=== PATIENT | male | born 1945 | race Caucasian/White ===

== ENCOUNTER 2022-05-13 11:33 | Observation (INO) | payer OTHER ==
[2022-05-13] MEDS ORDERED: FLUCONAZOLE 100 MG TAB ONE (12:19)
[2022-05-13] MEDS ORDERED: NA CHLORIDE 0.9% 500 ML ONE (12:19)
[2022-05-13 12:36] LABS: Hematocrit 43.4 % (39.6-49.0); Lymphocytes % 7.2 % (15.3-44.8); MCV 91.1 fL (80-100); MPV 8.3 fL (7.6-11.3); RBC Red Blood Cell Count 4.76 M/uL (4.33-5.43)
[2022-05-13 13:20] LABS: Urine Blood Negative (Negative); Urine Glucose Negative (Negative); Urine Protein Negative (Negative); Urine Specific Gravity >=1.030 (1.005-1.030); Urine pH 5.5 (5.0-7.0)
--- NOTE | 2022-05-13 13:55 | RAD REPORT ---
EXAM DESCRIPTION: CT - Abdomen Pelvis W Contrast - 05/13/2022 1:43 pm CLINICAL HISTORY: Abdominal pain COMPARISON: 2018 and 1999 TECHNIQUE: Computed axial tomography of the abdomen pelvis was obtained. 100 cc Isovue-300 was admin istered intravenously. Oral contrast was not requested which limits evaluation of bowel and appendix All CT scans are performed using dose optimization technique as appropriate and may include automated exposure control or mA/KV adjustment according to patient size. FINDINGS: The liver, spleen, pancreas, right adrenal and kidneys appear unremarkable. Enlargement of the left adrenal gland without significant change likely benign There is no evidence of diverticulitis. Sigmoidectomy. No obstruction. No ascites Cholecystectomy IMPRESSION: No acute abnormality is displayed.
[2022-05-13 14:06] LABS: Urine Bacteria None Seen /HPF (<20); Urine Mucus 1+ /HPF (None Seen); Urine RBC <5 /HPF (None Seen)
--- NOTE | 2022-05-13 14:16 | ER ---
Nurse's Notes [facility] Name: Jose Elias Lunsford Age: 76 yrs Sex: Male : 1945 Arrival Date: 05/13/2022 Time: 11:38 Bed 25 Private MD: Diagnosis: Muscle weakness (generalized);Dehydration;Cellulitis of groin;Cellulitis of abdominal wall Presentation: 05/13 11:38 Chief complaint: Patient states: Rash to belly area for 1 week. Diarrhea/IBS problems ll1 for a couple days. Found on floor this morning covered in stool all over, but refused to come at that time. Home health sent him for eval. Coronavirus screen: Client denies travel out of the [place] in the last 14 days. Ebola Screen: Patient denies travel to an Ebola-affected area in the 21 days before illness onset. Initial Sepsis Screen: Does the patient meet any 2 criteria? HR > 90 bpm. No. Patient's initial sepsis screen is negative. Does the patient have a suspected source of infection? Yes: Acute abdominal pain. Risk Assessment: Do you want to hurt yourself or someone else? Patient reports no desire to harm self or others. Onset of symptoms was May 06, 2022. 11:38 Method Of Arrival: EMS ll1 11:38 Acuity: SHANA 3 ll1 Triage Assessment: 11:43 General: Appears ill, Behavior is cooperative, appropriate for age. Pain: Complains of ll1 pain in abdomen Quality of pain is described as crampy. GI: Reports cramping, diarrhea. Derm: Rash noted that is to folds of lower abdomen area. Historical: - Allergies: 11:42 No Known Allergies; ll1 - PMHx: 11:42 IBS; colon CA with chemo; ll1 - PSHx: 11:42 colon resection; ll1 - Immunization history:: Client reports receiving the 2nd dose of the Covid vaccine. - Social history:: Smoking status: Patient denies any tobacco usage or history of. - Family history:: not pertinent. - Hospitalizations: : No recent hospitalization is reported. Screenin:59 Abuse screen: Denies threats or abuse. Nutritional screening: No deficits noted. ll1 Tuberculosis screening: No symptoms or risk factors identified. Fall Risk IV access (20 points). Gait- Weak (10 pts.). Total Brunson Fall Scale indicates Low Risk Score (25-44 pts). Fall prevention measures have been instituted. Side Rails Up X 2 Placed close to Nursing Station Frequent Obs/Assesments occuring Family Present and informed to notify staff if they need to leave bedside As available Patient and Family Educated on Fall Prevention Program and strategies. Assessment: 12:00 General: Appears in no apparent distress. comfortable, Behavior is calm, cooperative, kr3 Smells of malodorous . 12:45 Reassessment: No changes from previously documented assessment. Patient and/or family kr3 updated on plan of care and expected duration. Pain level reassessed. 13:45 Reassessment: No changes from previously documented assessment. Patient and/or family kr3 updated on plan of care and expected duration. Pain level reassessed. 14:45 Reassessment: No changes from previously documented assessment. Patient and/or family kr3 updated on plan of care and expected duration. Pain level reassessed. 15:45 Reassessment: No changes from previously documented assessment. Patient and/or family kr3 updated on plan of care and expected duration. Pain level reassessed. Vital Signs: 11:38 BP 113 / 69; Pulse 92; Resp 18; Temp 97.6; Pulse Ox 98% on R/A; Weight 154.22 kg; ll1 Height 6 ft. 0 in. (182.88 cm); 12:26 BP 123 / 64; Pulse 90; Resp 18; Pulse Ox 95% on R/A; kr3 11:38 Body Mass Index 46.11 (154.22 kg, 182.88 cm) ll1 ED Course: 11:35 Arm band placed on Patient placed in an exam room, on a stretcher. kr3 11:35 Bed in low position. Call light in reach. Side rails up X 1. kr3 11:38 Patient arrived in ED. ll1 11:39 Jayden Perez MD is Attending Physician. rn 11:42 Triage completed. ll1 12:07 Lizzy Narvaez, ESTEBAN is Primary Nurse. kr3 12:24 Inserted saline lock: 20 gauge in right upper arm, using aseptic technique. kr3 13:28 Lizzy Narvaez, RN is Primary Nurse. kr3 13:45 CT Abd/Pelvis - IV Contrast Only In Process Unspecified. EDMS 14:15 Johnny Sunshine MD is Hospitalizing Provider. rn 18:00 No provider procedures requiring assistance completed. Patient admitted, IV remains in ll1 place. Administered Medications: 12:23 Drug: NS 0.9% 500 ml Route: IV; Rate: bolus; Site: right upper arm; kr3 14:26 Follow up: Response: No adverse reaction; IV Status: Completed infusion; IV Intake: kr3 500ml 12:25 Drug: DiFLUcan (fluconazole) 200 mg Route: PO; kr3 15:46 Follow up: Response: No adverse reaction kr3 14:24 Drug: Clindamycin 600 mg Route: IVPB; Infused Over: 30 mins; Site: right upper arm; kr3 15:46 Follow up: Response: No adverse reaction; IV Status: Completed infusion; IV Intake: [id number] Medication: 18:00 VIS not applicable for this client. ll1 Intake: 14:26 IV: 500ml; Total: 500ml. kr3 15:46 IV: 50ml; Total: 550ml. kr3 Outcome: 14:16 Decision to Hospitalize by Provider. rn 18:00 Admitted to ER Hold. Please see [facility] for further documentation. ll1 18:00 Condition: stable 18:00 Instructed on the need for admit. 05/14 12:48 Patient left the ED. jl7 Signatures: Dispatcher [employer] EDMS Jayden Perez MD MD rn Leal, Jahala RN RN jl7 Salma Jacobs RN RN ll1 Lizzy Narvaez RN RN kr3 Corrections: (The following items were deleted from the chart) 05/13 12:25 11:43 Arm band placed on Patient placed in an exam room, on a stretcher, ll1 kr3 15:44 15:42 General: Appears in no apparent distress. comfortable, Behavior is calm, kr3 cooperative, Smells of malodorous . kr3
--- NOTE | 2022-05-13 14:17 | EDPHYS ---
Physician Documentation [facility] Name: Jose Elias Lunsford Age: 76 yrs Sex: Male : 1945 Arrival Date: 05/13/2022 Time: 11:38 Bed 25 Private MD: ED Physician Jayden Perez HPI: 05/13 13:41 This 76 yrs old Unknown Male presents to ER via EMS with complaints of Rash, Diarrhea, rn weakness. 13:42 Pt reports generalized weakness, some diarrhea, was found laying on floor covered in rn feces today. No fever. No vomiting. No chest pain/sob.. Onset: The symptoms/episode began/occurred today. Severity of symptoms: At their worst the symptoms were moderate in the emergency department the symptoms are unchanged. The patient has not experienced similar symptoms in the past. The patient has not recently seen a physician. Historical: - Allergies: 11:42 No Known Allergies; ll1 - PMHx: 11:42 IBS; colon CA with chemo; ll1 - PSHx: 11:42 colon resection; ll1 - Immunization history:: Client reports receiving the 2nd dose of the Covid vaccine. - Social history:: Smoking status: Patient denies any tobacco usage or history of. - Family history:: not pertinent. - Hospitalizations: : No recent hospitalization is reported. ROS: 13:42 Constitutional: Negative for fever, chills, and weight loss, Eyes: Negative for injury, rn pain, redness, and discharge, Neck: Negative for injury, pain, and swelling, Cardiovascular: Negative for chest pain, palpitations, and edema, Respiratory: Negative for shortness of breath, cough, wheezing, and pleuritic chest pain, Abdomen/GI: Negative for nausea, vomiting, and constipation, Back: Negative for injury and pain, MS/Extremity: Negative for injury and deformity, Skin: Negative for injury, rash, and discoloration, Neuro: Negative for headache, numbness, tingling, and seizure. Exam: 13:42 Constitutional: Overweight male, no acute distress Head/Face: Normocephalic, rn atraumatic. ENT: dry MM Cardiovascular: Regular rate and rhythm. No pulse deficits. Respiratory: No increased work of breathing, no retractions or nasal flaring. Abdomen/GI: soft, non-tender Skin: Warm, dry , + erythematous rash with satellite lesions under pannus and in groin. MS/ Extremity: Pulses equal, no cyanosis. Neuro: Awake and alert, GCS 15, oriented to person, place, time, and situation. 14:41 ECG was reviewed by the Attending Physician. rn Vital Signs: 11:38 BP 113 / 69; Pulse 92; Resp 18; Temp 97.6; Pulse Ox 98% on R/A; Weight 154.22 kg; ll1 Height 6 ft. 0 in. (182.88 cm); 12:26 BP 123 / 64; Pulse 90; Resp 18; Pulse Ox 95% on R/A; kr3 11:38 Body Mass Index 46.11 (154.22 kg, 182.88 cm) ll1 MDM: 11:39 Patient medically screened. rn 14:11 Differential Diagnosis rash, diarrhea, weakness, dehydration. Data reviewed: vital rn signs, nurses notes, lab test result(s), EKG, radiologic studies, CT scan, and as a result, I will admit patient. Counseling: I had a detailed discussion with the patient and/or guardian regarding: the historical points, exam findings, and any diagnostic results supporting the discharge/admit diagnosis, lab results, radiology results, the need for further work-up and treatment in the hospital. Response to treatment: the patient's symptoms have mildly improved after treatment, and as a result, I will admit patient. Admission orders: after a detailed discussion of the patient's condition and case, the admit orders are written by me. ED course: No acute findings on ct abdomen/pelvis, + elevated WBC, + cellulitis which may or may not be bacterial/fungal. Pt reports too weak to get out of bed, nobody at home to help him, is concerned about going home. . 05/13 11:49 Order name: CBC with Diff; Complete Time: 13: rn 05/13 11:49 Order name: Basic Metabolic Panel; Complete Time: 13: rn 05/13 11:49 Order name: Urine Microscopic Only; Complete Time: 14: rn 05/13 11:50 Order name: BNP; Complete Time: 13: rn 05/13 13:20 Order name: Urine Dipstick-Ancillary; Complete Time: 13:41 EDMS 05/13 14:21 Order name: SARS RAPID; Complete Time: 15:27 rn 05/13 17:35 Order name: C.difficile GDH Ag EDMS 05/13 17:35 Order name: CBC with Automated Diff EDMS 05/13 17:35 Order name: CBC with Automated Diff EDMS 05/13 17:35 Order name: Comprehensive Metabolic Panel EDWI 05/13 17:35 Order name: Comprehensive Metabolic Panel EDWI 05/13 17:35 Order name: Fecal Leukocyte Stain EDWI 05/13 17:35 Order name: Ova and Parasites EDWI 05/13 17:35 Order name: Stool Culture EDWI 05/13 11:49 Order name: IV Start; Complete Time: 12:59 rn 05/13 11:49 Order name: Urine Dipstick-Ancillary (obtain specimen); Complete Time: 13:14 rn 05/13 11:49 Order name: CT Abd/Pelvis - IV Contrast Only; Complete Time: 14:04 rn 05/13 11:49 Order name: Cardiac monitoring; Complete Time: 13:14 rn 05/13 11:49 Order name: O2 Sat Monitoring; Complete Time: 12:26 rn 05/13 17:35 Order name: Heart Healthy EDWI 05/14 08:40 Order name: Manual Differential EDMS EC:41 Rate is 86 beats/min. Rhythm is regular. Left axis deviation noted. QRS is positive in rn lead I and negative in lead aVF. OH interval is normal. QRS interval is normal. QT interval is prolonged at 495 msec. No Q waves. T waves are Normal. No ST changes noted. Clinical impression: NSR w/ Non-specific ST/T Changes. Interpreted by me. Reviewed by me. Administered Medications: 12:23 Drug: NS 0.9% 500 ml Route: IV; Rate: bolus; Site: right upper arm; kr3 14:26 Follow up: Response: No adverse reaction; IV Status: Completed infusion; IV Intake: kr3 500ml 12:25 Drug: DiFLUcan (fluconazole) 200 mg Route: PO; kr3 15:46 Follow up: Response: No adverse reaction kr3 14:24 Drug: Clindamycin 600 mg Route: IVPB; Infused Over: 30 mins; Site: right upper arm; kr3 15:46 Follow up: Response: No adverse reaction; IV Status: Completed infusion; IV Intake: [id number] Disposition Summary: 05/13/22 14:16 Hospitalization Ordered Hospitalization Status: Observation rn Provider: Johnny Sunshine rn Condition: Stable rn Problem: new rn Symptoms: have improved rn Bed/Room Type: Standard rn Location: [facility] ER HOLD(05/13/22 22:40) Room Assignment: ERHOLD-(05/13/22 22:40) cg Diagnosis - Muscle weakness (generalized) rn - Dehydration rn - Cellulitis of groin rn - Cellulitis of abdominal wall rn Forms: - Medication Reconciliation Form rn - SBAR form rn Signatures: Dispatcher [employer] EDMS Jayden Perez MD MD rn Garcia, Cindy RN RN Salma Mejia RN RN ll1 Lizzy Narvaez RN RN kr3 Corrections: (The following items were deleted from the chart) 22:40 14:16 Telemetry/MedSurg (observation) rn cg 22:40 14:16 rn cg
[2022-05-13] MEDS ORDERED: CLINDAMYCIN 600MG/D5W 600 MG/50 ML BAG IV ONE (14:28)
[2022-05-13 15:07] LABS: SARS-CoV-2 Antigen Rapid Res Negative (Negative)
[2022-05-13] MEDS ORDERED: LOPERAMIDE HCL 2 MG CAPSULE PO PRN (17:29)
[2022-05-13] MEDS ORDERED: ACETAMINOPHEN 500 MG TAB PO PRN (17:29)
[2022-05-13] MEDS ORDERED: MORPHINE 2 MG/ML SYR IV PRN (17:29)
[2022-05-13] MEDS ORDERED: ONDANSETRON 4 MG/2 ML VIAL IV PRN (17:29)
[2022-05-13] MEDS ORDERED: NA CHLORIDE 0.9% 1,000 ML ONE (17:57)
[2022-05-13] MEDS ORDERED: METHYLPREDNISOLONE 40 MG INJ ONE (17:57)
[2022-05-13] MEDS ORDERED: NA CHLORIDE 0.9% 1,000 ML IV SCH (18:00)
[2022-05-13] MEDS ORDERED: METHYLPREDNISOLONE 40 MG INJ IV ONE (18:00)
--- NOTE | 2022-05-13 22:23 | P.HP ---
Certification for Inpatient Patient admitted to: Observation With expected LOS: <2 Midnights Patient will require the following post-hospital care: None Practitioner: I am a practitioner with admitting privileges, knowledge of patient current condition, hospital course, and medical plan of care. Services: Services provided to patient in accordance with Admission requirements found in Title 42 Section 412.3 of the Code of Federal Regulations Patient History Date of Service: 05/13/22 Reason for admission: Generalized weakness; persistent diarrhea History of Present Illness: Patient is a 76-year-old gentleman who came to the hospital with generalized weakness and persistent diarrhea. Patient has not been feeling well so he came to the hospital for further evaluation. patient was really weak. He has living by himself. He normally takes care of his own activities of daily living. At this time, he will be admitted to the hospital for further evaluation. Patient has history of colon cancer. He has completed chemotherapy. Will go ahead and admitted for observation. Will get physical therapy evaluation. Gently hydrate. Anticipate discharge over the next 24 hours. Allergies No Known Allergies Allergy (Unverified 04/26/13 14:49) Home Medications: Hydrocodone 7.5/APAP 325 [[place] 7.5/325 mg*] 1 tab PO Q4HP PRN #40 tab 05/08/13 Enoxaparin Sodium [Lovenox 150 MG Syr*] 150 mg SQ BID #60 syr 09/05/13 Iron,Carbonyl [Feosol] 45 mg PO DAILY 09/05/13 Loperamide [Imodium*] 3 mg PO 1X PRN 09/05/13 Melatonin [Melatonin*] 3 mg PO BEDTIME 09/05/13 Multi-VIT,(RENAL) [Centrum Silver*] 1 tab PO DAILY 09/05/13 Naproxen Sodium [Aleve] 220 mg PO DAILY 09/05/13 [place]-3 Fatty Acids/Fish Oil [Fish Oil 1,000 mg Softgel] 1 each PO DAILY 09/05/13 Ondansetron HCl 4 mg PO PRN PRN 09/05/13 Sennosides/Docusate Sodium [Senna S Tablet] 1 each PO PRN PRN 09/05/13 dexAMETHasone [Decadron*] 4 mg PO BID 09/05/13 Triamterene/Hctz [Maxzide 37.5 mg-25 mg Tablet*] 1 each PO DAILY #30 tablet 09/10/13 - Past Medical/Surgical History Has patient received pneumonia vaccine in the past: Yes Diabetic: No -: Stage 2 Colon CA on chemo -: right ankle 1987 -: Bowel Resection -: Exploratory lap -: Diaz Cath insertion -: Cholecystectomy - Family History Father Family History: Reviewed- Non-Contributory - Social History Smoking Status: Never smoker Alcohol use: No CD- Drugs: No Review of Systems 10-point ROS is otherwise unremarkable Physical Examination - Vital Signs Temperature: 98 F Blood Pressure: 140/80 Pulse: 80 Respirations: 18 Pulse Ox (%): 96 - Physical Exam General: Alert, In no apparent distress, Oriented x3 HEENT: Atraumatic, PERRLA, Mucous membr. moist/pink, EOMI, Sclerae nonicteric Neck: Supple, 2+ carotid pulse no bruit, No LAD, Without JVD or thyroid abnormality Respiratory: Clear to auscultation bilaterally, Normal air movement Cardiovascular: Regular rate/rhythm, Normal S1 S2, No murmurs Gastrointestinal: Normal bowel sounds, Soft and benign, Non-distended, No tenderness Musculoskeletal: No clubbing, No swelling, No tenderness Integumentary: No rashes Neurological: Normal strength at 5/5 x4 extr, Normal tone, Sensation intact, Cranial nerves 3-12 intact Lymphatics: No axilla or inguinal lymphadenopathy - Studies Laboratory Data (last 24 hrs) 05/13/22 12:17: Sodium 140, Potassium 4.0, BUN 31 H, Creatinine 1.00, Glucose 124 H 05/13/22 12:17: WBC 14.40 H, Hgb 14.0, Hct 43.4, Plt Count 374 Assessment & Plan - Problems (Diagnosis) (1) Carcinoma of sigmoid colon Current Visit: No Status: Active (2) Diarrhea Current Visit: Yes Status: Acute (3) Generalized weakness Current Visit: Yes Status: Acute - Plan -Gently hydrate - stool studies - monitor electrolytes -physical therapy - out of bed and ambulate -monitor hemodynamics -anticipate discharge with home health Discharge Plan: Home Plan to discharge in: 24 Hours - Advance Directives Does patient have a Living Will: No Does patient have a Durable POA for Healthcare: No - Code Status/Comfort Care Code Status Assessed: Yes Code Status: Full Code Critical Care: No Time Spent Managing PTS Care (In Minutes): 45
[2022-05-13] MEDS ORDERED: HYDROCODONE/APAP 7.5/325 MG TAB PO PRN (22:27)
[2022-05-14] MEDS: METHYLPREDNISOLONE 40 MG INJ IV SCH ×2 (00:19→09:00)
[2022-05-14] MEDS ORDERED: METHYLPREDNISOLONE 40 MG INJ ONE ×2 (00:24→09:04)
[2022-05-14 03:39] VITALS: BMI 46.0
[2022-05-14 06:55] LABS: Absolute Lymphocytes (CBC) 0.9 K/uL (0.7-4.9); Hematocrit 40.8 % (39.6-49.0); Lymphocytes % 7.5 % (15.3-44.8); MCV 91.2 fL (80-100); MPV 8.7 fL (7.6-11.3); RBC Red Blood Cell Count 4.47 M/uL (4.33-5.43)
[2022-05-14 07:09] LABS: Albumin 2.3 g/dL (3.4-5.0); Bilirubin Total 0.4 mg/dL (0.2-1.0); Potassium 4.6 mmol/L (3.5-5.1); Protein, Total 6.2 g/dL (6.4-8.2)
[2022-05-14] MEDS ORDERED: dexAMETHasone 4 MG TAB PO SCH (08:00)
[2022-05-14 08:40] LABS: Blood Morphology Comment NOT SEEN (NOT SEEN); Platelet Estimate ADEQ; Platelets, Giant FEW
[2022-05-14] MEDS ORDERED: dexAMETHasone 4 MG TAB ONE (09:04)
[2022-05-14] MEDS ORDERED: NA CHLORIDE 0.9% 1,000 ML ONE (10:26)
[2022-05-14 13:08] VITALS: TEMP 97.6
[2022-05-14 13:10] VITALS: BP 123/64; O2SAT 95
--- NOTE | 2022-05-14 13:52 | EKG ---
Test Date: 2022-05-13 Test Time: 12:14:56 Harvester Operator: ELIANA MEASUREMENT RESULTS: Intervals: Rate: 86 MT: QRSD: 96 QT: 414 QTc: 495 [place]: P: MT: QRS: -33 T: 25 INTERPRETIVE STATEMENTS: Normal Sinus rhythm Left axis deviation Prolonged QT Abnormal ECG Compared to ECG 09/09/2013 11:44:43 Left-axis deviation now present Prolonged QT interval now present Ventricular premature complex(es) no longer present Left anterior fascicular block no longer present Electronically Signed On 05-14-22 13:49:46 CDT by Dinesh Humphreys
== END 2022-05-14 12:37 | disposition home or self-care (01) ==
LOC: ER 11:33 → ERHOLD 17:29
PROVIDERS: ADMIT Hospitalist; ATTEND Hospitalist
DX: R53.1 Weakness (principal); R19.7 Diarrhea, unspecified; E86.0 Dehydration; Z85.038 Personal history of other malignant neoplasm of large intestine; Z90.49 Acquired absence of other specified parts of digestive tract; Z20.822 Contact with and (suspected) exposure to COVID-19
CPT/HCPCS: 36415; 74177; 80048; 80053; 81003; 81015; 83880; 85025; 87811; 93005; 96361; 96365; 97110; 97161; 97530; 99285; G0378; J1650; J2920; J7030; J7040; J8540; Q9967

== ENCOUNTER 2022-05-17 15:09 | Inpatient (IN) | payer OTHER ==
[2022-05-17] MEDS ORDERED: ONDANSETRON 4 MG/2 ML VIAL ONE (15:26)
[2022-05-17] MEDS ORDERED: FENTANYL CITR 100 MCG/2 ML ONE ×3 (15:26→18:57)
[2022-05-17] MEDS ORDERED: NA CHLORIDE 0.9% 1,000 ML ONE ×6 (15:27→20:10)
[2022-05-17] MEDS ORDERED: PANTOPRAZOLE 40 MG INJ ONE (15:48)
[2022-05-17 16:20] LABS: Absolute Lymphocytes (CBC) 2.3 K/uL (0.7-4.9); Hematocrit 32.5 % (39.6-49.0); Lymphocytes % 11.1 % (15.3-44.8); MCV 90.7 fL (80-100); MPV 8.7 fL (7.6-11.3); RBC Red Blood Cell Count 3.58 M/uL (4.33-5.43)
[2022-05-17 16:24] LABS: Protime INR 1.2
--- NOTE | 2022-05-17 16:36 | ER ---
Nurse's Notes [facility] Name: Jose Elias Lunsford Age: 76 yrs Sex: Male : 1945 Arrival Date: 05/17/2022 Time: 15:[address] Private MD: Diagnosis: Abdominal pain, Generalized Presentation: 05/17 13:06 Chief complaint: EMS states: toned out to PT home for sharp, continuous ABD pain down tp1 the center of the ABD that started this morning, pain rated 10/10. reports BP 66/44. Coronavirus screen: Vaccine status: Patient reports receiving the 2nd dose of the covid vaccine. Ebola Screen: Patient negative for fever greater than or equal to 101.5 degrees Fahrenheit, and additional compatible Ebola Virus Disease symptoms Patient denies exposure to infectious person. Patient denies travel to an Ebola-affected area in the 21 days before illness onset. Initial Sepsis Screen: Does the patient meet any 2 criteria? RR > 20 per min. Systolic BP < 90 mmHg. HR > 90 bpm. Yes Does the patient have a suspected source of infection? No. Patient's initial sepsis screen is negative. Risk Assessment: Do you want to hurt yourself or someone else? Patient reports no desire to harm self or others. 13:06 Method Of Arrival: EMS: [facility] tp1 13:06 Onset of symptoms was May 17, 2022. tp1 15:57 Acuity: SHANA 2 iw Triage Assessment: 15:06 General: Appears distressed, uncomfortable, Behavior is cooperative, anxious, restless. tp1 Pain: Complains of pain in abdomen Pain currently is 10 out of 10 on a pain scale. Quality of pain is described as sharp, Pain began today. EENT: No signs and/or symptoms were reported regarding the EENT system. Neuro: Level of Consciousness is awake, alert, obeys commands, Oriented to person, place, time, situation. Cardiovascular: Reports diaphoresis, cold, clammy Capillary refill < 3 seconds in bilateral toes. Cardiovascular: Clubbing of nail beds is present. Respiratory: Airway is patent Respiratory effort is even, unlabored. GI: Abdomen is round non-distended, Abdomen is tender to palpation X 4 quads. ABD is soft on bilateral sides and firm from epigastric to umbilicus Reports constipation, nausea. : No signs and/or symptoms were reported regarding the genitourinary system. Derm: Skin is clammy, diaphoretic, Skin is pale, Skin temperature is cool Rash noted that is red, on right femoral area, left femoral area and suprapubic area. Musculoskeletal: Circulation, motion, and sensation intact. Musculoskeletal: Swelling present in right foot, left foot, right leg and left leg. Historical: - Allergies: 16:27 No Known Allergies; tp1 - Home Meds: 16:28 Nystatin Oral [Active]; IRON,C4 [Active]; OMEGA-2 [Active]; tp1 16:29 Prednisolone Oral [Active]; apixaban oral [Active]; Loperamide Oral [Active]; Melatonin tp1 Oral [Active]; naproxen Oral [Active]; Dexamethasone Oral [Active]; fluconazole Oral [Active]; Triamterene-Hydrochlorothiazid Oral [Active]; sennosides oral [Active]; Ondansetron Oral [Active]; - PMHx: 16:27 colon CA with chemo; ibs; tp1 - PSHx: 16:27 colon resection; tp1 - Immunization history:: Client reports receiving the 2nd dose of the Covid vaccine. - Social history:: Smoking status: Patient/guardian denies using tobacco. Screenin:09 Abuse screen: Denies threats or abuse. Denies injuries from another. Nutritional tp1 screening: No deficits noted. Tuberculosis screening: No symptoms or risk factors identified. Fall Risk No fall in past 12 months (0 pts). No secondary diagnosis (0 pts). IV access (20 points). Ambulatory Aid- Crutches/Cane/Walker (15 pts). Gait- Normal/Bed Rest/Wheelchair (0 pts) Mental Status- Oriented to own ability (0 pts). Total Brunson Fall Scale indicates Low Risk Score (25-44 pts). Fall prevention measures have been instituted. Side Rails Up X 2 Placed close to Nursing Station Frequent Obs/Assesments occuring. Assessment: 15:06 General: see triage notes. tp1 16:00 Reassessment: No changes from previously documented assessment. continues to appear tp1 pale, cool, clammy, and diaphoretic. Continues to CO ABD pain 10/10. Foot of bed is elevated. 16:39 Reassessment: Received verbal consent from pt to begin central line Right subclavian, tp1 procedure completed by Dr Hastings and Dr Ortez. 17:30 Reassessment: No changes from previously documented assessment. Continues to be pale, tp1 cool, and clammy. Continues to CO ABD pain. Transport to CT via bed with Jiada RN, Kalie RN, Shayy RN. 17:30 Reassessment: Norepi decreased to 0.05mcg/Kg/Min by Kalie Orellana. tp1 17:58 Reassessment: Patient appears in no apparent distress at this time. Returned from CT tp1 via stretcher. no longer appears to be clammy. Continues to CO ABD pain. 18:38 Reassessment: Provider notified of pt BP pressure of 64/35; titrated Norep 0.05 tp1 mcg/kg/min; pt at 0.01 mcg/kg/min. 18:55 Reassessment: Pt transported to OR with two RN. tp1 Vital Signs: 15:06 BP 70 / 30; Pulse 80; Temp 98.0; tp1 15:32 BP 100 / 49; Pulse 100; Resp 23; Pulse Ox 98% ; ld1 15:40 BP 100 / 49; Pulse 73; Resp 29; Pulse Ox 100% on 2 lpm NC; tp1 15:45 BP 102 / 53; Pulse 109; Resp 25; Pulse Ox 96% ; ld1 16:03 BP 112 / 67; Pulse 116; Resp 22; Pulse Ox 100% ; ld1 16:27 BP 80 / 61; Pulse 107; Resp 22; Pulse Ox 97% on R/A; iw 17:04 Weight 158.76 kg (R); iw 17:09 BP 65 / 46; Pulse 121; Resp 15; Pulse Ox 95% on 2 lpm NC; tp1 17:20 BP 118 / 69; Pulse 95; Resp 19; Pulse Ox 97% on 2 lpm NC; tp1 17:30 BP 131 / 56; Pulse 101; tp1 18:06 BP 113 / 81; Pulse 113; Resp 23; Pulse Ox 98% on 2 lpm NC; tp1 18:10 BP 106 / 47; Pulse 111; Resp 24; Pulse Ox 100% on R/A; tp1 18:15 BP 94 / 55; Pulse 111; Resp 22; Pulse Ox 100% on R/A; tp1 18:20 BP 96 / 34; Pulse 109; Resp 23; Pulse Ox 99% on R/A; tp1 18:23 BP 94 / 55; Pulse 109; Pulse Ox 98% on 2 lpm NC; tp1 18:25 BP 92 / 51; Pulse 111; Resp 7; Pulse Ox 98% on R/A; tp1 18:30 BP 64 / 35; Pulse 113; Resp 26; Pulse Ox 97% on R/A; tp1 18:35 BP 109 / 92; Pulse 119; Resp 24; Pulse Ox 98% on R/A; tp1 18:36 BP 64 / 35; Pulse 119; tp1 18:54 BP 80 / 31; Pulse 123; Resp 26; Temp 98.0; Pulse Ox 98% on R/A; tp1 ED Course: 15:06 Arm band placed on. tp1 15:06 Patient has correct armband on for positive identification. Placed in gown. Bed in low tp1 position. Call light in reach. Side rails up X2. 15:12 Patient arrived in ED. eb 15:12 Sean Hastings MD is Attending Physician. kdr 15:25 Inserted saline lock: 20 gauge in left forearm, using aseptic technique. tp1 15:30 Inserted saline lock: 22 gauge in right antecubital area, using aseptic technique. tp1 ,using aseptic technique. inserted by Shayy ORELLANA. 15:57 Triage completed. iw 16:25 Summers cath inserted, using sterile technique, 16 Fr., by ED staff, balloon inflated, to tp1 gravity drainage, urine specimen collected. 16:34 Sean Hastings MD is Hospitalizing Provider. kdr 16:34 Robby Langston MD is Hospitalizing Provider. kdr 16:50 Assisted provider with central line placement. Set up central line tray. Triple lumen tp1 line placed in right subclavian. Line placed by Sean Hastings MD Placement verified by CXR, blood return, Dressed with Tegaderm, Blood was collected. Patient tolerated well. 16:54 SARS RAPID Sent. ap3 16:55 Christine Carney, ESTEBAN is Primary Nurse. tp1 17:00 First set of blood cultures drawn by me. tp1 17:16 XRAY Chest (1 view) In Process Unspecified. EDMS 17:30 Second set of blood cultures drawn. tp1 17:51 CT Chest, Abdomen, Pelvis - W/Contrast In Process Unspecified. EDMS Administered Medications: 15:25 Drug: NS 0.9% 1000 ml Route: IV; Rate: 1 bolus; Site: left forearm; iw 17:15 Follow up: Response: Blood pressure is unchanged; IV Status: Completed infusion; IV tp1 Intake: 1000ml 15:25 Drug: Zofran (Ondansetron) 4 mg Route: IVP; Site: left forearm; iw 15:50 Follow up: Response: Nausea is decreased tp1 15:36 Drug: fentaNYL (PF) 100 mcg Route: IVP; Site: left forearm; iw 15:40 Follow up: Response: Pain is unchanged, physician notified tp1 17:42 Follow up: Response: Pain is unchanged, physician notified tp1 15:41 Drug: fentaNYL (PF) 100 mcg Route: IVP; Site: left forearm; tp1 16:00 Follow up: Response: Pain is decreased tp1 15:45 Drug: ProTONIX (pantoprazole) 40 mg Route: IVP; Site: left forearm; iw 17:44 Follow up: Response: Pain is unchanged, physician notified tp1 16:45 Drug: NS 0.9% 1000 ml Route: IV; Rate: 1 bolus; Site: left forearm; vg1 17:46 Follow up: Response: Blood pressure is unchanged; IV Status: Completed infusion; IV tp1 Intake: 1000ml 17:15 Drug: NS 0.9% (30 ml/kg) 30 ml/kg Route: IV; Rate: bolus; Site: left forearm; tp1 19:00 Follow up: IV Status: Completed infusion; IV Intake: 1000ml tp1 17:18 Drug: Levophed (norepinephrine) 0.1 mcg/kg/min Route: IV; Rate: calculated rate; Site: tp1 right subclavian; 17:30 Follow up: BP 131 / 56; Pulse 101 bpm; Rate change 0.05 mcg/kg/min tp1 18:36 Follow up: BP 64 / 35; Pulse 119 bpm; Rate change 0.1 mcg/kg/min tp1 18:57 Follow up: IV Status: Infusion continued upon admission tp1 17:25 Drug: Zosyn (piperacillin-tazobactam) 3.375 grams Route: IVPB; Infused Over: 60 mins; tp1 Site: right subclavian; 18:01 Follow up: Response: Pain is unchanged, physician notified tp1 18:01 Follow up: IV Status: Completed infusion tp1 17:56 Drug: LevaQUIN (levofloxacin) 500 mg Volume: 100 ml; Route: IVPB; Infused Over: 60 tp1 mins; Site: right subclavian; 18:56 Follow up: IV Status: Completed infusion tp1 Medication: 18:25 VIS not applicable for this client. tp1 Intake: 17:15 IV: 1000ml; Total: 1000ml. tp1 17:46 IV: 1000ml; Total: 2000ml. tp1 19:00 IV: 1000ml; Total: 3000ml. tp1 Outcome: 16:35 Decision to Hospitalize by Provider. kdr 19:03 Patient left the ED. tp1 Signatures: Dispatcher [employer] EDMS Sean Hastings MD MD kdr Kalie Gallardo RN RN iw Shayy Lund RN RN [id number] Jaimie Calabrese Victoria RN RN gus1 Vee Coreas RN RN ld1 Christine Carney RN RN tp1 Corrections: (The following items were deleted from the chart) 16:27 15:15 BP 70 / 30; Pulse 80bpm; Temp 98.0F; tp1 tp1 16:34 16:28 Home Meds: MELATO; tp1 tp1 16:34 16:28 Home Meds: APIXAB; tp1 tp1 16:34 16:28 Home Meds: LOPERA2; tp1 tp1 17:52 16:00 Reassessment: No changes from previously documented assessment. Patient is alert, tp1 oriented x 3, equal unlabored respirations, skin warm/dry/pink. continues to be pale, clammy, and diaphoretic. Continues to CO ABD pain 10/10. Foot of bed is elevated. tp1 17:58 17:45 Reassessment: No changes from previously documented assessment. Continues to be tp1 pale, cool, and clammy. Continues to CO ABD pain. Transport to CT via bed with Penny ORELLANA tp1 18:03 15:06 GI: Abdomen is round non-distended, Abd is soft Abdomen is tender to palpation X tp1 4 quads. Reports constipation, nausea, tp1 18:24 17:20 BP 118 / 69; Pulse 95bpm; Resp 19bpm; Pulse Ox 97% RA; tp1 tp1 18:24 18:06 BP 113 / 81; Pulse 113bpm; Resp 23bpm; Pulse Ox 98% RA; tp1 tp1
--- NOTE | 2022-05-17 16:36 | EDPHYS ---
Physician Documentation [facility] Name: Jose Elias Lunsford Age: 76 yrs Sex: Male : 1945 Arrival Date: 05/17/2022 Time: 15:[address] Private MD: ED Physician Sean Hastings HPI: 05/17 17:35 This 76 yrs old Male presents to ER via Unassigned with complaints of Abdominal Pain. kdr 17:35 The patient presents with abdominal pain that is diffuse. Onset: The symptoms/episode kdr began/occurred yesterday, and improved The patient states that the pain started yesterday afternoon after he returned home from being admitted to this hospital. Pain has been intermittent but progressively worsening over that period of time he has had some nausea but no vomiting. He denies bowel movement or significant flatus since yesterday. The symptoms do not radiate. Associated signs and symptoms: Pertinent positives: nausea and vomiting, Pertinent negatives: blood in stools, chest pain, diarrhea, dysuria, fever, headache, hematuria, palpitations, shortness of breath, testicular pain, vomiting blood. The symptoms are described as achy, crampy, intermittent, sharp, stabbing, waxing/waning. Modifying factors: The symptoms are alleviated by nothing, the symptoms are aggravated by movement, pressure, touching the area, walking. Severity of pain: At its worst the pain was incapacitating in the emergency department the pain is unchanged. The patient has not experienced similar symptoms in the past. The patient has been recently seen at the [facility] Emergency Department, last week, The patient has been recently been admitted at [facility], was discharged yesterday. Historical: - Allergies: 16:27 No Known Allergies; tp1 - Home Meds: 16:28 Nystatin Oral [Active]; IRON,C4 [Active]; OMEGA-2 [Active]; tp1 16:29 Prednisolone Oral [Active]; apixaban oral [Active]; Loperamide Oral [Active]; Melatonin tp1 Oral [Active]; naproxen Oral [Active]; Dexamethasone Oral [Active]; fluconazole Oral [Active]; Triamterene-Hydrochlorothiazid Oral [Active]; sennosides oral [Active]; Ondansetron Oral [Active]; - PMHx: 16:27 colon CA with chemo; ibs; tp1 - PSHx: 16:27 colon resection; tp1 - Immunization history:: Client reports receiving the 2nd dose of the Covid vaccine. - Social history:: Smoking status: Patient/guardian denies using tobacco. ROS: 17:35 Constitutional: Negative for fever, chills, and weight loss, Eyes: Negative for injury, kdr pain, redness, and discharge, Neck: Negative for injury, pain, and swelling, Cardiovascular: Negative for chest pain, palpitations, and edema, Respiratory: Negative for shortness of breath, cough, wheezing, and pleuritic chest pain, Back: Negative for injury and pain, : Negative for injury, bleeding, discharge, and swelling, MS/Extremity: Negative for injury and deformity, Skin: Negative for injury, rash, and discoloration, Neuro: Negative for headache, weakness, numbness, tingling, and seizure activity. Psych: Negative for depression, anxiety, suicide ideation, homicidal ideation, and hallucinations, Allergy/Immunology: Negative for hives, rash, and allergies, Endocrine: Negative for neck swelling, polydipsia, polyuria, polyphagia, and marked weight changes, Hematologic/Lymphatic: Negative for swollen nodes, abnormal bleeding, and unusual bruising. 17:35 Abdomen/GI: Positive for abdominal pain, nausea, vomiting, Negative for anorexia, dysphagia, hematemesis, black/tarry stool, rectal pain, rectal bleeding, flatulence. Exam: 17:35 Constitutional: This is a well developed, well nourished patient who is awake, alert, kdr and in no acute distress. Head/Face: Normocephalic, atraumatic. Eyes: Pupils equal round and reactive to light, extra-ocular motions intact. Lids and lashes normal. Conjunctiva and sclera are non-icteric and not injected. Cornea within normal limits. Periorbital areas with no swelling, redness, or edema. Neck: Trachea midline, no thyromegaly or masses palpated, and no cervical lymphadenopathy. Supple, full range of motion without nuchal rigidity, or vertebral point tenderness. No Meningismus. Chest/axilla: Normal chest wall appearance and motion. Nontender with no deformity. No lesions are appreciated. Cardiovascular: Regular rate and rhythm with a normal S1 and S2. No gallops, murmurs, or rubs. Normal PMI, no JVD. No pulse deficits. Respiratory: Lungs have equal breath sounds bilaterally, clear to auscultation and percussion. No rales, rhonchi or wheezes noted. No increased work of breathing, no retractions or nasal flaring. Back: No spinal tenderness. No costovertebral tenderness. Full range of motion. Skin: Warm, dry with normal turgor. Normal color with no rashes, no lesions, and no evidence of cellulitis. MS/ Extremity: Pulses equal, no cyanosis. Neurovascular intact. Full, normal range of motion. Neuro: Awake and alert, GCS 15, oriented to person, place, time, and situation. Cranial nerves II-XII grossly intact. Motor strength 5/5 in all extremities. Sensory grossly intact. Cerebellar exam normal. Normal gait. Psych: Awake, alert, with orientation to person, place and time. Behavior, mood, and affect are within normal limits. 17:35 Abdomen/GI: Inspection: abdomen appears normal, obese Bowel sounds: diminished, in all quadrants, Palpation: soft, moderate abdominal tenderness, severe abdominal tenderness, in the umbilical area, right lower quadrant and left lower quadrant. Vital Signs: 15:06 BP 70 / 30; Pulse 80; Temp 98.0; tp1 15:32 BP 100 / 49; Pulse 100; Resp 23; Pulse Ox 98% ; ld1 15:40 BP 100 / 49; Pulse 73; Resp 29; Pulse Ox 100% on 2 lpm NC; tp1 15:45 BP 102 / 53; Pulse 109; Resp 25; Pulse Ox 96% ; ld1 16:03 BP 112 / 67; Pulse 116; Resp 22; Pulse Ox 100% ; ld1 16:27 BP 80 / 61; Pulse 107; Resp 22; Pulse Ox 97% on R/A; iw 17:04 Weight 158.76 kg (R); iw 17:09 BP 65 / 46; Pulse 121; Resp 15; Pulse Ox 95% on 2 lpm NC; tp1 17:20 BP 118 / 69; Pulse 95; Resp 19; Pulse Ox 97% on 2 lpm NC; tp1 17:30 BP 131 / 56; Pulse 101; tp1 18:06 BP 113 / 81; Pulse 113; Resp 23; Pulse Ox 98% on 2 lpm NC; tp1 18:10 BP 106 / 47; Pulse 111; Resp 24; Pulse Ox 100% on R/A; tp1 18:15 BP 94 / 55; Pulse 111; Resp 22; Pulse Ox 100% on R/A; tp1 18:20 BP 96 / 34; Pulse 109; Resp 23; Pulse Ox 99% on R/A; tp1 18:23 BP 94 / 55; Pulse 109; Pulse Ox 98% on 2 lpm NC; tp1 18:25 BP 92 / 51; Pulse 111; Resp 7; Pulse Ox 98% on R/A; tp1 18:30 BP 64 / 35; Pulse 113; Resp 26; Pulse Ox 97% on R/A; tp1 18:35 BP 109 / 92; Pulse 119; Resp 24; Pulse Ox 98% on R/A; tp1 18:36 BP 64 / 35; Pulse 119; tp1 18:54 BP 80 / 31; Pulse 123; Resp 26; Temp 98.0; Pulse Ox 98% on R/A; tp1 MDM: 16:35 Patient medically screened. kdr 17:35 Data reviewed: vital signs, nurses notes, lab test result(s). Counseling: I had a kdr detailed discussion with the patient and/or guardian regarding: the historical points, exam findings, and any diagnostic results supporting the discharge/admit diagnosis, lab results, radiology results, the need for further work-up and treatment in the hospital. 05/17 15:12 Order name: Blood Culture Adult (2) [facility] 05/17 15:12 Order name: CBC with Diff; Complete Time: 18:29 [facility] 05/17 15:12 Order name: CMP; Complete Time: 18:08 [facility] 05/17 15:12 Order name: Lactate; Complete Time: 18:08 [facility] 05/17 15:12 Order name: Protime (+inr); Complete Time: 17:00 [facility] 05/17 15:12 Order name: Ptt, Activated; Complete Time: 17:00 [facility] 05/17 15:54 Order name: Type And Screen ld1 05/17 16:03 Order name: Glucose, Ancillary Testing; Complete Time: 17:00 EDTX 05/17 16:41 Order name: SARS RAPID; Complete Time: 18:08 iw 05/17 18:13 Order name: Manual Differential; Complete Time: 18:29 EDTX 05/17 18:15 Order name: Packed RBCs (Additional Unit) EDTX 05/17 15:12 Order name: Accucheck; Complete Time: 16:11 kdr 05/17 15:12 Order name: Cardiac monitoring; Complete Time: 16:11 kdr 05/17 15:23 Order name: CT Chest, Abdomen, Pelvis - W/Contrast; Complete Time: 18:29 kdr 05/17 16:56 Order name: XRAY Chest (1 view); Complete Time: 18:08 ld1 05/17 18:01 Order name: NPO [facility] 05/17 18:48 Order name: Fresh Frozen Plasma [facility] 05/17 15:12 Order name: EKG - Nurse/Tech; Complete Time: 16:11 kdr 05/17 15:12 Order name: IV Saline Lock - Large Bore; Complete Time: 16:11 kdr 05/17 15:12 Order name: Labs collected and sent; Complete Time: 16:11 kdr 05/17 15:12 Order name: O2 Per Protocol; Complete Time: 16:11 kdr 05/17 15:12 Order name: O2 Sat Monitoring; Complete Time: 16:11 kdr Administered Medications: 15:25 Drug: NS 0.9% 1000 ml Route: IV; Rate: 1 bolus; Site: left forearm; iw 17:15 Follow up: Response: Blood pressure is unchanged; IV Status: Completed infusion; IV tp1 Intake: 1000ml 15:25 Drug: Zofran (Ondansetron) 4 mg Route: IVP; Site: left forearm; iw 15:50 Follow up: Response: Nausea is decreased tp1 15:36 Drug: fentaNYL (PF) 100 mcg Route: IVP; Site: left forearm; iw 15:40 Follow up: Response: Pain is unchanged, physician notified tp1 17:42 Follow up: Response: Pain is unchanged, physician notified tp1 15:41 Drug: fentaNYL (PF) 100 mcg Route: IVP; Site: left forearm; tp1 16:00 Follow up: Response: Pain is decreased tp1 15:45 Drug: ProTONIX (pantoprazole) 40 mg Route: IVP; Site: left forearm; iw 17:44 Follow up: Response: Pain is unchanged, physician notified tp1 16:45 Drug: NS 0.9% 1000 ml Route: IV; Rate: 1 bolus; Site: left forearm; vg1 17:46 Follow up: Response: Blood pressure is unchanged; IV Status: Completed infusion; IV tp1 Intake: 1000ml 17:15 Drug: NS 0.9% (30 ml/kg) 30 ml/kg Route: IV; Rate: bolus; Site: left forearm; tp1 19:00 Follow up: IV Status: Completed infusion; IV Intake: 1000ml tp1 17:18 Drug: Levophed (norepinephrine) 0.1 mcg/kg/min Route: IV; Rate: calculated rate; Site: tp1 right subclavian; 17:30 Follow up: BP 131 / 56; Pulse 101 bpm; Rate change 0.05 mcg/kg/min tp1 18:36 Follow up: BP 64 / 35; Pulse 119 bpm; Rate change 0.1 mcg/kg/min tp1 18:57 Follow up: IV Status: Infusion continued upon admission tp1 17:25 Drug: Zosyn (piperacillin-tazobactam) 3.375 grams Route: IVPB; Infused Over: 60 mins; tp1 Site: right subclavian; 18:01 Follow up: Response: Pain is unchanged, physician notified tp1 18:01 Follow up: IV Status: Completed infusion tp1 17:56 Drug: LevaQUIN (levofloxacin) 500 mg Volume: 100 ml; Route: IVPB; Infused Over: 60 tp1 mins; Site: right subclavian; 18:56 Follow up: IV Status: Completed infusion tp1 Disposition Summary: 05/17/22 16:35 Hospitalization Ordered Hospitalization Status: Observation kdr Provider: Robby Langston Location: Telemetry/[facility] (Inpatient) kdr Condition: Fair kdr Problem: new kdr Symptoms: have improved kdr Bed/Room Type: Standard kdr Room Assignment: kdr Diagnosis - Abdominal pain, Generalized kdr Forms: - Medication Reconciliation Form kdr - SBAR form kdr Critical care time excluding procedures: 18:16 Critical care time: Bedside Care: 40 minutes, Consultation: 10 minutes. Total time: 50 kdr minutes Signatures: Dispatcher [employer] EDSean Gatica MD MD kdr Williams, Irene RN Jaida Starks RN RN vg1 Vee Coreas RN RN [email or web address] Christine Carney RN RN tp1 Gin Diehl PA PA sb3 Corrections: (The following items were deleted from the chart) 16:34 16:28 Home Meds: MELATO; tp1 tp1 16:34 16:28 Home Meds: APIXAB; tp1 tp1 16:34 16:28 Home Meds: LOPERA2; tp1 tp1 18:49 18:30 FRESH FROZEN PLASMA+[id number] ordered. EDMS EDMS 18:49 18:32 ABO/RH typing ordered. EDMS EDMS
[2022-05-17 16:41] LABS: Albumin 2.2 g/dL (3.4-5.0); Bilirubin Total 0.4 mg/dL (0.2-1.0); Potassium 4.1 mmol/L (3.5-5.1); Protein, Total 5.3 g/dL (6.4-8.2)
[2022-05-17] MEDS ORDERED: Levofloxacin500mg IV 500 MG/100 ML BAG IV ONE (16:58)
[2022-05-17] MEDS ORDERED: NA CHLORIDE 0.9% 100 ML ONE (16:58)
[2022-05-17] MEDS ORDERED: PIPERACIL/TAZO 3.375 GM VIAL IV ONE (16:58)
[2022-05-17 17:22] LABS: SARS-CoV-2 Antigen Rapid Res Negative (Negative)
[2022-05-17] MEDS ORDERED: NOREPINEPHRINE BITARTRATE/D5W 4 MG/250 ML BAG IV ONE (17:24)
--- NOTE | 2022-05-17 17:25 | RAD REPORT ---
EXAM DESCRIPTION: RAD - Chest Single View - 05/17/2022 5:14 pm CLINICAL HISTORY: CHEST PAIN COMPARISON: Portable 09/09/2013 TECHNIQUE: AP portable chest image was obtained 05/17/2022 5:14 pm . FINDINGS: Right subclavian central line has been placed. Tip is in the distal SVC. There is no pneum othorax. Lung [place] are clear. Heart and vasculature are normal. No pleural fluid collection. No acute bony a bnormality seen. No acute aortic findings suspected. IMPRESSION: Right subclavian line placement in good position. No pneumothorax.
[2022-05-17] MEDS ORDERED: HYDROMORPHONE HCL 2 MG/ML inj IV PRN (17:55)
[2022-05-17] MEDS ORDERED: ONDANSETRON 4 MG/2 ML VIAL IV PRN (17:58)
[2022-05-17 18:12] LABS: Blood Morphology Comment NOT SEEN (NOT SEEN); Platelet Estimate ADEQ
--- NOTE | 2022-05-17 18:23 | RAD REPORT ---
EXAM DESCRIPTION: CT - Chest Abdomen Pelvis W Cont - 05/17/2022 5:49 pm CLINICAL HISTORY: abdominal pain COMPARISON: CT CHEST ABD PELVIS W CONTRAST dated 04/14/2013; Abdomen Pelvis W Contrast dated 022 TECHNIQUE: Following dynamic enhancement using 100 milliliters nonionic IV contrast, axial imaging o f the chest, abdomen and pelvis was performed. Biphasic technique was utilized through the abdomen. No oral contrast administered. All CT scans are performed using dose optimization technique as appropriate and may include automated exposure control or mA/KV adjustment according to patient size. FINDINGS: Lungs are clear of mass and infiltrate. No pleural effusion, pleural thickening or pneumot horax. No significant aortic or pulmonary arterial tree finding. Mediastinal and hilar regions show n o mass or abnormal lymphadenopathy. No chest wall mass or axillary lymphadenopathy. No focal liver parenchymal process. No focal abnormality of the normal size spleen. No acute pancreat ic parenchymal finding seen. Cholecystectomy clips are present. No abnormal biliary tree dilatation. Symmetric renal function is seen with no mass or hydronephrosis. No adrenal abnormalities. Urinary b ladder is fully contracted around a Summers catheter. In the midline and right mid and upper abdomen there is a 17 x 14 x 12 cm hematoma. Active bleeding i s seen along the anterior margin of this large hematoma. This hematoma is along the anterior inferior margin of the gastric antrum and bulb which are both poorly defined along their margins. There is no extraluminal free air present. Small amount of free intraperitoneal free fluid or blood products pre sent along the splenic capsule and adjacent to the inferior margin of the liver. The mass is in the s uperior margin of the transverse colon which is displaced inferiorly. Transverse colon etiology for t he hematoma is not suspected. Gastric ulcer or duodenal bulb ulcer perforation would be possible thou gh both look normal May 13. The active bleeding along the anterior margin the hematoma can be tracked to a vessel that courses ov er the top of the hematoma back to the celiac artery vascular network. No acute or destructive bony process. Findings discussed with Dr. Hastings as well as the consulting hospitalist and surgeon. IMPRESSION: Large 17 x 14 x 12 centimeter anterior upper abdominal hematoma with active bleeding see n along the anterior margin. The site of active bleeding appears to track to a small vessel coursing over the top of the hematoma coursing from the celiac artery network. Gastric antrum and duodenal bulb margins are poorly defined. The hematoma abuts the anterior inferior margin of the antrum and there is stranding and fluid in this region. Rupture of a gastric antrum or duodenal bulb AVM would be possible. Hemorrhagic ulcer perforation would be possible etiology though neither the antrum or the bulb have a n abnormal appearance 4 days earlier. No extraluminal free air confirmed which would be expected with ulcer perforation. CT chest has no acute findings. No additional acute findings in the CT abdomen.
--- NOTE | 2022-05-17 18:46 | P.HP ---
Certification for Inpatient Patient admitted to: Inpatient With expected LOS: >2 Midnights Patient will require the following post-hospital care: None Practitioner: I am a practitioner with admitting privileges, knowledge of patient current condition, hospital course, and medical plan of care. Services: Services provided to patient in accordance with Admission requirements found in Title 42 Section 412.3 of the Code of Federal Regulations Patient History Date of Service: 05/17/22 Reason for admission: Intra-Abdominal Hemorrhage History of Present Illness: Patient is a 76-year-old male with history of colon cancer stage II on chemotherapy who presented to the ED via EMS with complaints of severe abdominal pain. Patient was seen at this facility admitted and discharged 3 days ago after treatment of diarrhea and generalized weakness. His labs and CT then were unremarkable. He returns today with worsening pain. His labs are significant for WBC 21, lactic acid 9, creatinine 1.4, BUN 31, glucose 300. CT showed. His blood pressure dropped into the 60s systolic and he was started on Levophed. General surgery was consulted and took him to the OR immediately for exploratory laparotomy. He found a rupture of the right epiploic artery and vein and ligated successfully. Patient tolerated well. He was taken to ICU for further management. Allergies No Known Allergies Allergy (Unverified 04/26/13 14:49) Home medications list reviewed: Yes Home Medications: Apixaban [Eliquis *] 2.5 mg PO BID 05/14/22 Fluconazole [Diflucan] 200 mg PO DAILY #10 mg 05/14/22 Hydrocodone 7.5/APAP 325 [Downey 7.5/325 mg*] 1 tab PO Q4HP PRN #30 tab 05/14/22 Nystatin Powder [Mycostatin (Powder)*] 1 appl TOP BID #1 btl 05/14/22 dexAMETHasone [Dexamethasone] 4 mg PO BIDWM #60 mg 05/14/22 predniSONE [Prednisone*] 20 mg PO BID #11 tab 05/14/22 - Past Medical/Surgical History Diabetic: No -: Stage 2 Colon cancer on chemo -: right ankle 1987 -: Bowel Resection -: Exploratory lap -: Diaz Cath insertion -: Cholecystectomy Psychosocial/ Personal History: Patient lives at home. - Family History Family History: Reviewed- Non-Contributory - Social History Smoking Status: Never smoker Alcohol use: No CD- Drugs: No Caffeine use: Yes Place of Residence: Home Review of Systems Gastrointestinal: Nausea, Vomiting, Abdominal Pain Physical Examination - Physical Exam General: Alert, In no apparent distress, Moderate distress HEENT: Atraumatic, PERRLA, EOMI, Sclerae nonicteric Neck: Supple, 2+ carotid pulse no bruit, No LAD, Without JVD or thyroid abnormality Respiratory: Clear to auscultation bilaterally, Normal air movement Cardiovascular: Regular rate/rhythm, Normal S1 S2 Gastrointestinal: Normal bowel sounds, Tenderness Musculoskeletal: No tenderness Integumentary: No rashes Neurological: Normal speech, Normal strength at 5/5 x4 extr, Normal tone, Normal affect - Studies Laboratory Data (last 24 hrs) 05/17/22 15:52: PT 13.3 H, INR 1.20, APTT 21.8 L 05/17/22 15:52: Sodium 137, Potassium 4.1, BUN 32 H, Creatinine 1.41 H, Glucose 301 H, Total Bilirubin 0.4, AST 20, ALT 47, Alkaline Phosphatase 62 05/17/22 15:52: WBC 21.10 H* D, Hgb 10.8 L D, Hct 32.5 L D, Plt Count 392 Assessment and Plan - Problems (Diagnosis) (1) Intra abdominal hemorrhage Current Visit: Yes Status: Acute (2) Hypotension Current Visit: Yes Status: Acute Qualifiers: Hypotension type: hypotension due to hypovolemia Qualified Code(s): I95.89 - Other hypotension; E86.1 - Hypovolemia (3) Lactic acidosis Current Visit: Yes Status: Acute (4) Acute blood loss anemia Current Visit: Yes Status: Acute (5) Sepsis Current Visit: Yes Status: Acute Qualifiers: Sepsis type: sepsis due to unspecified organism Sepsis acute organ dysfunction status: without acute organ dysfunction Qualified Code(s): A41.9 - Sepsis, unspecified organism - Plan -Patient is admitted to ICU. -General surgery recommended keeping patient on vent overnight. -Q4H H&H. Patient has received 3 units PRBC. Lost 2000 cc in OR. Transfuse PRBC, FFP, platelets as necessary. Patient has been on eliquis. -Levophed as needed to maintain MAP > 65 -Initial lactic acid 9.3. Pending repeat. -Continue IV cipro and flagyl -Glucose monitoring Q6H. Mild sliding scale. -NPO. Maintenance IV fluids. -Physical therapy consult. -Summers catheter in place. Monitor output. -Dilaudid PRN. -Monitor and replete electrolytes per protocol. -Full code. Discharge Plan: Home Plan to discharge in: Greater than 2 days - Advance Directives Does patient have a Living Will: No Does patient have a Durable POA for Healthcare: No - Code Status/Comfort Care Code Status Assessed: Yes (Full) Critical Care: No Time Spent Managing Pts Care (In Minutes): 50
[2022-05-17] MEDS ORDERED: NA CHLORIDE 0.9% 250 ML ONE (18:54)
[2022-05-17] MEDS ORDERED: MIDAZOLAM HCL 2 MG/2 ML INJ ONE (18:58)
[2022-05-17] MEDS ORDERED: LIDOCAINE 1% MPF 5 ML VIAL ONE (18:58)
[2022-05-17] MEDS ORDERED: propofoL 200 MG/20 ML VIAL IV ONE (18:58)
[2022-05-17] MEDS ORDERED: GLYCOPYRROLATE 0.2 MG/ML SYR ONE (18:58)
[2022-05-17] MEDS ORDERED: dexAMETHasone 4 MG/ML VIAL ONE (18:58)
[2022-05-17] MEDS ORDERED: NEOSTIGMINE 1 MG/ML -10 ML VIAL ONE (18:59)
[2022-05-17] MEDS ORDERED: KETOROLAC 30 MG/ML INJ ONE (18:59)
[2022-05-17] MEDS ORDERED: ROCURONIUM 50 MG/5 ML VIAL IV ONE ×2 (18:59→20:50)
[2022-05-17] MEDS ORDERED: ETOMIDATE 20 MG/10 ML VIAL IV ONE (19:00)
[2022-05-17] MEDS ORDERED: NA CHLORIDE 0.9% 0 ML ONE (19:16)
[2022-05-17] MEDS ORDERED: METHYLENE BLUE 0.5% 10 ML AMP ONE (20:40)
--- NOTE | 2022-05-17 21:17 | P.OP ---
Drug Safety Data Management Specialist: Luna Cerda Preoperative diagnosis: Acute Intra-abdominal hemorrhage Postoperative diagnosis: Acute Intra-abdominal hemorrhage Primary procedure: Exploratory Laparotomy Secondary procedure: Ligation of RIGHT Epiploic Artery and Vein Other procedure(s): Primary Closure Anesthesia: GETA Estimated blood loss: 2000 cc hematoma, intraop blood loss ~ 250cc Specimen: Clot for ID only Findings: Rupture of RIGHT epiploic artery and vein Complications: None Drain(s): Nasogastric, Urinary catheter, PEYMAN drain (10mm flat PEYMAN ) Transferred to: ICU Condition: Critical
[2022-05-17] MEDS: NOREPINEPHRINE BITARTRATE/D5W 4 MG/250 ML BAG IV ONE ×2 (21:20→21:59)
[2022-05-17] MEDS: NOREPINEPHRINE 4 MG in D5W 250 ML IV SCH (21:20)
[2022-05-17] MEDS ORDERED: HYDROMORPHONE HCL 1 MG/ML INJ IV PRN ×2 (21:43→22:12)
[2022-05-17] MEDS ORDERED: D5.45NS W/KCL 20MEQ 1,000 ML IV SCH (22:00)
[2022-05-17 22:11] LABS: Hematocrit 34.8 % (39.6-49.0)
[2022-05-17] MEDS: HYDROMORPHONE HCL 2 MG/ML inj IV PRN (22:27)
--- NOTE | 2022-05-17 22:40 | RAD REPORT ---
EXAM DESCRIPTION: RAD - Abdomen 1 View (KUB) - 05/17/2022 10:14 pm CLINICAL HISTORY: Placement of NGT/OGT. Post Insertion. COMPARISON: No comparisons FINDINGS: NG/OG tube has been placed. Tip is in the region of the gastric antrum. No abnormal kink o f the tubing. Curvilinear density in the right quadrant is believed be drain tube. Bowel gas pattern is nonspecific. IMPRESSION: NG/OG tube placement with tip in the gastric antrum.
[2022-05-17] MEDS: LORazepam 2 MG/ML VIAL IV PRN (23:50)
[2022-05-18] MEDS ORDERED: NA CHLORIDE 0.9% 250 ML ONE ×3 (00:04→10:22)
[2022-05-18] MEDS: METRONIDAZOLE 500mg IVPB 500 MG/100 ML BAG IV SCH ×5 (01:00→23:49)
[2022-05-18] MEDS: HYDROMORPHONE HCL 2 MG/ML inj IV PRN ×6 (01:01→23:45)
[2022-05-18] MEDS: Ringers Lactate 1,000 ML IV SCH ×5 (01:30→19:45)
[2022-05-18] MEDS: LORazepam 2 MG/ML VIAL IV PRN ×3 (02:33→15:03)
[2022-05-18 02:38] LABS: Hematocrit 30.3 % (39.6-49.0)
[2022-05-18] MEDS: NOREPINEPHRINE 4 MG in D5W 250 ML IV SCH ×3 (02:40→16:11)
[2022-05-18] MEDS ORDERED: NOREPINEPHRINE BITARTRATE/D5W 4 MG/250 ML BAG IV ONE ×2 (02:44→23:04)
--- NOTE | 2022-05-18 05:36 | OP ---
Date of Procedure: 05/17/2022 Surgeon: Pilo Ortez MD, History Of Present Illness: Patient is a 76-year-old male who presents to the hospital complaining of severe abdominal pain. Workup included a blood draw and it was noted that his hemoglobin was about 3 units lower on this check than his previous, which was approximately less than a week ago. In addition, he had CT scan of the abdomen and pelvis, which showed a significant amount of intraabdominal hematoma in the area of focus with extravasation consistent with an active arterial bleed. As such, I opted to take the patient emergently to the operating room after explaining the risks, benefits, alternatives, which include bleeding, infection, damage to surrounding tissues, and need for further operation procedures, , blood clots, stroke. The patient was on Eliquis preoperatively. He was given 1 unit of PRBCs in the ER and transported to the OR. Type and screen were performed obviously. Preoperative Diagnosis: Acute intraabdominal hemorrhage. Postoperative Diagnosis: Acute intraabdominal hemorrhage. Procedure Performed: 1. Exploratory laparotomy. 2. Ligation of right epiploic artery and vein. 3. Primary abdominal closure. Anesthesia: General endotracheal. Estimated Blood Loss: 2500 cc of hematoma was removed and intraoperative blood loss after hematoma removed approximately 250 cc. Specimen: Clot for ID only. Findings: 1. Large hematoma extending from the retroperitoneum compressing the head of pancreas up into the anterior surface of the stomach, compressing the transverse colon inferiorly. 2. Significant intraabdominal adhesions. The patient had a history of multiple abdominal surgeries for cancer. 3. There appeared to be a small accessory branch of the middle colic artery, which had a small rupture anterior leading towards the colon, but the main colic artery appeared intact. 4. It appeared to be a branch of the right epiploic artery, which had ruptured along with the concomitant vein. There was mass effect as well due to the large size of this hematoma. Complications: None immediate. Drains: 1. Nasogastric. 2. Urinary catheter. 3. 10 mm flat PEYMAN drain. Disposition: The patient transferred to ICU in critical condition. Procedure In Detail: After informed consent was obtained as described above, the patient was prepped in the supine position. SCDs were activated. The patient was prepped and draped in the usual sterile fashion after adequate anesthesia was achieved. I cut down through a previous midline laparotomy incision using a 10 blade down to subcutaneous tissues. I dissected down through subcutaneous fat to expose the midline fascia, which had obvious sutures in place. The sutures were grasped and cut and removed. They appeared to be nylon in appearance. These were removed at this time. I then dissected down to enter the peritoneal cavity sharply. Immediately encountered was significant amount of hematoma. I opened the abdomen in an upper midline orientation from the subxiphoid space to supraumbilical position using electrocautery under direct visualization after initially entering sharply with the Metzenbaum scissors. Hematoma was encountered. This was scooped out rapidly after opening the abdomen. At this point, I placed laparotomy pads to control arterial spurting, which was appreciated, but difficult to assess due to the significant amount of intraabdominal hematoma. I proceeded to pack around the area of the liver. Basically significant intraabdominal adhesions were appreciated making access not as timely as I would prefer. The significant intraabdominal adhesions were taken down as rapidly as possible and safely using electrocautery predominantly and blunt dissection. The hematoma was evacuated using a combination of blunt removal approximately 2000 cc of clot were removed throughout the procedure until a spurting vessel, which appeared to be on the right epiploic artery and vein position. These were obvious arterial spurting. At this point, I used a 2-0 silk suture ligature and ligated these 2 structures with good hemostasis on both proximal and distal aspects and good hemostasis appeared to be at this time. I then irrigated the abdomen copiously and packed the abdomen. At this point, the patient had oozing from all cut surfaces as he currently was on Eliquis. I then, at this point, leaving the packings in place in the central portion of the abdomen at the inferior to the stomach, I then dissected to visualize the stomach's anterior surface and opened up the window to this area through significant amount of scar. I then placed my hand on the stomach and felt for any evidence of rupture, which was not appreciated by palpation. I felt to the duodenal bulb and first portion the duodenum, which did not have any significant changes consistent with any bleeding. I then at this point with my hand remaining in place, asked Dr. Luna to place a nasogastric tube, which was done at this point, I palpated the nasogastric tube in place in a position near the duodenum. At this point, after suction of the stomach in its entirety, I then asked him to place approximately 100 cc of methylene blue saline mixture in here into the stomach and I allowed 5 minutes that while I continued to wash the abdomen out. At this point, I asked Dr. Luna to suction out the remaining gastric contents including methylene blue solution. He received the entire contents back. I inspected the laparotomy pad and palpated the abdomen and used multiple laparotomy pads, looking for any evidence of leakage or blue, which was not appreciated throughout the entire procedure. At this point, I felt confident that we had good hemostasis. I then used the remaining liters of warm saline to irrigate out the remainder of the clot. The head of the pancreas appeared to be somewhat compressed from the clot with some mild ischemic changes to anterior surface. This was brushed gently and irrigated just with simple irrigation and some of the substance appeared to be slightly sloughing, but no significant transections or pancreatic injury were appreciated. No biliary leak was appreciated also throughout the procedure. The abdomen was copiously irrigated. I then brought in a 10 mm flat PEYMAN drain through the left upper quadrant and placed the PEYMAN drain along the curvature of the stomach and down into the previous cavity, which was created by the large hematoma. The patient had a urinary catheter in place preoperatively and transferred to the OR and received an additional 2 units of PRBCs while in the operating room for a total of 3 units. His hemodynamics improved throughout the procedure where he remained hemodynamically labile throughout the procedure and as such, I opted to close the patient's abdomen with no additional bleeding was appreciated. At this point, I felt confident that at this time at least that there was no evidence of acute bleeding, understanding the patient was currently on Eliquis, I opted to close the patient's abdomen. I then closed the patient's abdomen using a #1 PDS in a running fashion after placing abdominal FISH in place with good approximation of the abdominal wall. At this point, I then irrigated the skin and closed it with interrupted simon. At this point, the drain was secured with 3-0 nylon suture, previous to closure, after position was verified. The patient tolerated the procedure well without incident or obvious intraoperative complications. Will be transferred to the ICU in critical condition. All counts were correct at the end of the case. A thorough laparotomy count was performed as well as instrument counts multiple times to ensure no surgical contents were left in the patient's abdomen including the FISH, which was removed prior to closure. DL/SPENSER Voice ID: [id number] Report ID: [id number] KAMALA
[2022-05-18 05:38] LABS: Protime INR 1.17
[2022-05-18 05:41] LABS: Absolute Lymphocytes (CBC) 1.9 K/uL (0.7-4.9); Hematocrit 29.6 % (39.6-49.0); Lymphocytes % 6.5 % (15.3-44.8); MCV 90.1 fL (80-100); MPV 8.9 fL (7.6-11.3); RBC Red Blood Cell Count 3.28 M/uL (4.33-5.43)
[2022-05-18 05:56] LABS: Albumin 1.9 g/dL (3.4-5.0); Bilirubin Total 0.5 mg/dL (0.2-1.0); Phosphorus 6.1 mg/dL (2.5-4.9); Protein, Total 4.5 g/dL (6.4-8.2)
[2022-05-18] MEDS ORDERED: INSULIN -REGULAR HUMAN 50 UNIT/0.5 ML ML SQ SCH (07:30)
[2022-05-18 08:10] LABS: Hematocrit 29.9 % (39.6-49.0)
--- NOTE | 2022-05-18 08:19 | RAD REPORT ---
EXAM DESCRIPTION: RAD - Chest Single View - 05/18/2022 8:08 am CLINICAL HISTORY: intubated/ventilator COMPARISON: Abdomen 1 View (KUB) dated 05/17/2022; Chest Single View dated 05/17/2022; CHEST SINGLE EW dated 09/09/2013; CHEST SINGLE VIEW dated 09/05/2013; Chest Abdomen Pelvis W Cont dated 05/17/2022 FINDINGS: Lines: Endotracheal tube at the tip of the aortic arch. Enteric tube. Right subclavian ina tral line overlying the SVC. Lungs: Low lung volumes. Basilar airspace disease. Pleural: No significant pleural effusions or pneumothorax. Cardiac: Cardiomegaly. Bones: No acute fractures. Other: IMPRESSION: Low lung volumes with basilar opacities likely reflecting atelectasis. Support apparatus in satisfactory position.
[2022-05-18 08:27] LABS: Protime INR 1.16
[2022-05-18] MEDS ORDERED: GLUCAGON 1 MG/VIAL IM PRN (08:55)
[2022-05-18] MEDS ORDERED: D50W 25 GM/50 ML SYRINGE IV PRN (08:55)
[2022-05-18 09:15] LABS: Blood Gas Oxyhemoglobin 96.4 % (94-97); Blood O2 Saturation 98.8 % (92-98.5)
[2022-05-18] MEDS ORDERED: NA CHLORIDE 0.9% 250 ML IV PRN (09:18)
[2022-05-18] MEDS: Levofloxacin 750mg IV 750 MG/150 ML BAG IV SCH (09:37)
[2022-05-18 10:08] LABS: Hematocrit 29.1 % (39.6-49.0)
--- NOTE | 2022-05-18 10:09 | P.PN ---
Subjective Date of Service: 05/18/22 Chief Complaint: Intra-Abdominal Hemorrhage Patient's condition is stable s/p surgery and intra-abdominal hematoma minimal dose of Levophed on IV fluids still has bloody drainage patient receiving blood transfusions very comfortable with Dilaudid Review of Systems is unable to be obtained Physical Examination - Vital Signs Temperature: 97.6 F Blood Pressure: 110/65 Pulse: 84 Respirations: 20 Pulse Ox (%): 100 - Physical Exam General: Unresponsive Cardiovascular: Normal S1 S2, Edema Gastrointestinal: Hypoactive, No tenderness - Studies Laboratory Data (last 24 hrs) 05/17/22 15:52: PT 13.3 H, INR 1.20, APTT 21.8 L 05/17/22 15:52: Sodium 137, Potassium 4.1, BUN 32 H, Creatinine 1.41 H, Glucose 301 H, Total Bilirubin 0.4, AST 20, ALT 47, Alkaline Phosphatase 62 05/17/22 15:52: WBC 21.10 H* D, Hgb 10.8 L D, Hct 32.5 L D, Plt Count 392 Microbiology Data (last 24 hrs): 05/17/22 17:30 Blood - Blood Anaerobic Blood Culture - Final Assessment And Plan - Current Problems (Diagnosis) (1) Intra abdominal hemorrhage Current Visit: Yes Status: Acute Plan: Patient is 76 years of age admitted with intra-abdominal hematoma it is for surgical evacuation and control of the bleeding site labs reviewed hemoglobin stable continue to monitor H&H May need blood transfusion (2) Shock Current Visit: Yes Status: Acute Plan: Admitted with shock from intra-abdominal hemorrhage also taking Eliquis at home continue to monitor may need blood transfusion and FFP in addition we will try and wean him off the Levophed use boluses of lactated lingers patient is on levofloxacin and Flagyl (3) Respiratory failure Current Visit: Yes Status: Acute Plan: Patient is on a ventilator endotracheal tube is satisfactory blood gases also satisfactory vent changes have been made
--- NOTE | 2022-05-18 11:57 | P.PN ---
Subjective Date of Service: 05/18/22 Chief Complaint: Intra-Abdominal Hemorrhage Subjective: Improving (Patient improving, remains on ventilator and pressor support. No acute events, received 1 unit FFP last evening, and 1 unit PRBC.) Review of Systems is unable to be obtained Physical Examination - Vital Signs Temperature: 97.6 F Blood Pressure: 110/65 Pulse: 84 Respirations: 20 Pulse Ox (%): 100 - Physical Exam General: Alert (Intubated on Ventilator) HEENT: Mucous membr. moist/pink Neck: Supple, Other (RIGHT subclavian central line in position) Respiratory: Diminished (ventilator A/C ) Cardiovascular: Regular rate/rhythm (significant improvement) Gastrointestinal: Other (soft , mild appropriate TTP, simon in place, PEYMAN seros anguanous - bloody / saline predominantly) Integumentary: Other (ecchyymosis over body, chest abdomen - unchanged from pre- op) Neurological: Other (intubated, follows commands ) Urinary: Navarro catheter External genitalia: No edema, Other (bilateral inguinal rash) - Studies Laboratory Data (last 24 hrs) 05/17/22 15:52: PT 13.3 H, INR 1.20, APTT 21.8 L 05/17/22 15:52: Sodium 137, Potassium 4.1, BUN 32 H, Creatinine 1.41 H, Glucose 301 H, Total Bilirubin 0.4, AST 20, ALT 47, Alkaline Phosphatase 62 05/17/22 15:52: WBC 21.10 H* D, Hgb 10.8 L D, Hct 32.5 L D, Plt Count 392 Microbiology Data (last 24 hrs): 05/17/22 17:30 Blood - Blood Anaerobic Blood Culture - Final Assessment And Plan - Current Problems (Diagnosis) (1) Nontraumatic hemorrhagic shock Current Visit: Yes Status: Acute Plan: 76 year old man who presented with hemorrhagic shock due to ruptured abdominal epiploic vessel = s/p exploratory laparotomy, evaucation of intra-abdominal hematoma, control / ligation of right epiploic bleeding vessels on 05/17/2022 - Gen / Neuro: decrease Ativan to 1-2mg IV Q2 hrs prn, dilaudid IV 2mg Q2 - CVS: hemohaggic hypovolemic shock with 2+ liters blood loss, hemodynamic parameters much improved - wean vasopressin, increase IV fluids for hypovolemia, tachycardia improved with HR in 80s currently, and MAP > 70 - Pulm: respiratory insufficiency - continue to wean ventilator support, currently on AC, daily chest x-rays - GI: anticipate continued minor blood loss from abdominal PEYMNA drain due to patient taking Eliquis yesterday, and significant intra-abdominal hemorrhage, not all clot was evaucated and significant volume of irrigant remained in abdomen, and will likely drain via PEYMAN. - FEN: increase IV fluids to LR @ 150cc/ hr, electrolyte replacement protocol, will consider TPN vs tube feeding if nutrition if unable to wean off vent tomorrow. - Heme: hemorrhagic shock, do not transfuse unless drop in hemoglobin of > 1 unit not due to dilution. Eliquis last taken 05/17/2022 - ID: wean antibiotics soon - levaquin / flagyl - Prophylaxis: No anticoagulation to be given to patient - Renal: oliguria - likely due to pre-renal hypovolemia - creatinine worsening, lactate improving, will continue to monitor, flushed navarro today - Placement / Therapy: consult case management - Endo: continue insulin sliding scale, do not administer steroids - Tubes / Lines: keep subclavian central line - in good position, PEYMAN in place, will get KUB to evaulate position of NGT, keep navarro catheter Direct Critical care time ~ 45 min
[2022-05-18] MEDS: INSULIN -REGULAR HUMAN 50 UNIT/0.5 ML ML SQ SCH ×2 (12:00→18:00)
--- NOTE | 2022-05-18 14:18 | RAD REPORT ---
EXAM DESCRIPTION: RAD - Abdomen 1 View (KUB) - 05/18/2022 12:50 pm CLINICAL HISTORY: Ngt placement COMPARISON: Abdomen 1 View (KUB) dated 05/17/2022; Chest Abdomen Pelvis W Cont dated 05/17/2022 FINDINGS/IMPRESSION: The enteric tube terminates overlying the gastric antrum. Surgical drain in the right upper quadrant and epigastrium. Laparotomy changes.
[2022-05-18 14:24] LABS: Hematocrit 26.3 % (39.6-49.0)
[2022-05-18 15:08] LABS: Protime INR 1.17
[2022-05-18 18:07] LABS: Hematocrit 25.3 % (39.6-49.0)
--- NOTE | 2022-05-18 19:09 | CON ---
Date of Consultation: 05/17/2022 Brief History Of Present Illness: The patient is a 76-year-old male who presented with a history of stage II colon cancer status post resection with primary anastomosis in the sigmoid colon area several years ago. He had been treated with chemotherapy via chemotherapy port which was removed. Subsequently, he had been doing well. He was maintained on Eliquis per Dr. Millan, as he had a history of blood clots he states. He presented to the hospital on 2 separate occasions, once on the and again on the . On his previous hospital visit on the , he was seen with abdominal pain and diarrhea. He now presents with severe abdominal pain, weakness, fatigue, malaise, nausea, and severe abdominal pain. He was seen in the ER, ultimately evaluated. Workup included laboratory draw and CT scan and placement of a right subclavian central venous catheter for IV access as the patient had a very poor IV access. I received a call from Dr. Go concerning his abdominal CT findings which appear to have an intraabdominal acute hemorrhage with extravasation contrast as such I came and saw the patient with the above-stated complaints. The patient only complained of the same said nausea, abdominal pain, severe tearing abdominal pain in his abdomen. Generally, it was difficult for him to find a comfortable position. He was pale and somewhat confused during my examination and was a very poor historian at the time of my examination. I recommended immediate type and cross for blood products and initiation of transfusion immediately of PRBCs as well as FFP at this time. I spoke to the patient. He did tell me that he took Eliquis as of 05/17/2022 in the morning which is a blood thinner he takes for his history of blood clots. No further information could be obtained with respect to his history regarding these situations. Past Medical History: Significant for sigmoid colon cancer status post surgical resection and chemotherapy, right ankle surgery, Port-A-Cath insertion and removal. Past Surgical History: Also includes cholecystectomy. Allergies: NO KNOWN DRUG ALLERGIES. Home Medications: Include Eliquis, Diflucan, Filion, nystatin, dexamethasone, prednisone. Social History: He lives at home. His has passed. He denies smoking, alcohol, or recreational drug use. Review of Systems: Ten-point review of systems other than HPI, currently denies. Physical Examination: Vital Signs: At the time of my examination, he is tachycardic to 148 rate, his blood pressure was 70s systolic over 30s diastolic. He appeared diaphoretic. HEENT: Otherwise, his head was normocephalic. He had poor dentition. His tongue was pale. His oropharynx and membranes were dry. NECK: Supple without JVD. CHEST: Had normal expansion, excursion. CARDIOVASCULAR: Irregular rate at 148. It was difficult to discern anything beyond this due to the rapidity of his heart rate. ABDOMEN: Globally tenderness with a bulge in the epigastric area extending from the supraumbilical portion to the subxiphoid. It was grossly tender. He had gross peritonitis, but worse at the epigastrium and central abdominal area. There was bruising over much of his abdomen and multiple bruises all over his extremities, as well as multiple bruises over his abdomen and chest. He cannot recall a fall precipitating his symptoms. EXTREMITIES: He has significant lymphedema to bilateral lower extremities with leg wraps on. His lower extremities are disheveled in appearance with poor nail care and general uncleanliness to his lower extremities. They are also pale as well as his upper extremities. Laboratory Data: He had a laboratory exam which revealed a white blood cell count of 21.1. His hemoglobin was 10.8, hematocrit 32.5. I had noted that 2 days ago, his hemoglobin was in the 13 range, almost a 3 g drop actually from previous. His platelet count was 392. His neutrophils are 85%. His PT was 13.3, INR 1.2. His PTT is 21.8. His sodium 137, potassium 4.1, chloride 102, carbon dioxide 22, BUN 32, creatinine 1.4, glucose is 301. His lactic acid was 9.3, calcium 8.4. His albumin was 2.2. COVID was negative. He had imaging, which I personally reviewed the images as well as reviewed with Dr. Menjivar, the radiologist. He had findings, lungs were clear of mass and infiltrate. No pleural effusion. No pneumothorax. No significant aortic or pulmonary arterial tree finding. Cholecystectomy clips were present. The midline and right mid upper abdomen, there is a 17 x 14 x 12 cm hematoma. Active bleeding is seen along the anterior margin of this large hematoma. The hematoma is along the anterior inferior margin of the gastric antrum and bulb, which were both poorly defined along the margins. There is no extraluminal free air present. Small amount of free intraperitoneal fluid or blood product present along the splenic capsule and adjacent to the inferior margin of the liver. The mass is in the superior margin of the transverse colon, which is displaced inferiorly. Transverse colon etiology for hematoma is not suspected. Gastric ulcer, duodenal bulb, ulcer perforation would be possible though both looked normal, 05/13. The active bleeding along the anterior margin of the hematoma can be tracked to a vessel like courses over the top of the hematoma back to celiac artery vascular network. No acute or destructive bony process. Assessment And Plan: This is a 76-year-old male who comes in with an acute gastrointestinal hemorrhage with active extravasation and evidence of hemodynamic/hemorrhagic shock. 1. Administer rapid blood transfusion of blood products to resuscitate the patient in preparation for emergency exploratory laparotomy. 2. Continue supportive care with pressors currently minimizing crystalloid and promoting predominantly blood product transfusions unless no blood product is rapidly available, in which case, we will consider supplementation with crystalloid until blood product becomes available. 3. I have recommended use of blood with FFP and platelets in combination for this acute intraabdominal hemorrhage. 4. I have explained the risks, benefits, and alternatives of exploratory laparotomy, and control of this bleeding vessel including but not limited to bleeding, further bleeding, infection, damage to any intraabdominal organs not necessarily limited to the bleeding structure including the pancreas, the liver, various intestines, spleen, retroperitoneal structures, major blood vessels, and need for further operations and procedures. In fact, I have explained the patient may require multiple trips to the operating room, depending on the findings and if hemorrhage is felt not to be adequate at the time of surgery, I have explained that the patient has taken Eliquis, which is a blood thinner and makes his chance of intraoperative bleeding and postoperative bleeding significantly higher given his current clinical picture. In addition, I have told the patient that I will likely place a drain in his abdomen to monitor this area closely, and he agrees to proceed as indicated. All questions were answered. We will proceed to the operating room as soon as possible. I have already notified the appropriate teams who were in preparation for an emergency exploratory laparotomy. Continue critical care and I have explained that I will be present with the patient the entire time until the operation is completed. DL/SPENSER Voice ID: [id number] Report ID: [id number] MTDD
[2022-05-18] MEDS ORDERED: Levofloxacin500mg IV 500 MG/100 ML BAG IV SCH (22:00)
[2022-05-18 22:16] LABS: Hematocrit 24.5 % (39.6-49.0)
[2022-05-19] MEDS: LORazepam 2 MG/ML VIAL IV PRN ×6 (00:32→23:30)
[2022-05-19] MEDS: NOREPINEPHRINE 4 MG in D5W 250 ML IV SCH (01:13)
[2022-05-19] MEDS: Ringers Lactate 1,000 ML IV SCH ×3 (02:06→14:40)
[2022-05-19 02:26] LABS: Hematocrit 22.7 % (39.6-49.0)
[2022-05-19] MEDS: HYDROMORPHONE HCL 2 MG/ML inj IV PRN ×5 (03:10→23:30)
[2022-05-19] MEDS ORDERED: NA CHLORIDE 0.9% 250 ML ONE ×3 (03:32→21:26)
[2022-05-19] MEDS: METRONIDAZOLE 500mg IVPB 500 MG/100 ML BAG IV SCH ×4 (05:17→23:34)
[2022-05-19 05:48] LABS: Arterial Blood Carboxyhemoglob 1.5 % (0-1.5); Blood Gas Oxyhemoglobin 93.1 % (94-97); Blood O2 Saturation 95.7 % (92-98.5)
[2022-05-19 05:58] LABS: Absolute Lymphocytes (CBC) 1.8 K/uL (0.7-4.9); Hematocrit 23.7 % (39.6-49.0); Lymphocytes % 8.4 % (15.3-44.8); MCV 90.9 fL (80-100); MPV 8.2 fL (7.6-11.3)
[2022-05-19] MEDS: INSULIN -REGULAR HUMAN 50 UNIT/0.5 ML ML SQ SCH ×4 (06:00→18:00)
[2022-05-19 06:13] LABS: Albumin 1.6 g/dL (3.4-5.0); Bilirubin Total 0.3 mg/dL (0.2-1.0); Phosphorus 4.2 mg/dL (2.5-4.9); Potassium 4.4 mmol/L (3.5-5.1)
--- NOTE | 2022-05-19 07:31 | RAD REPORT ---
EXAM DESCRIPTION: RAD - Chest Single View - 05/19/2022 6:39 am CLINICAL HISTORY: ventilator COMPARISON: Abdomen 1 View (KUB) dated 05/18/2022; Chest Single View dated 05/18/2022; Abdomen 1 View (KUB) dated 05/17/2022; Chest Single View dated 05/17/2022 FINDINGS: Lines: Endotracheal tube at the clavicular heads approximately 13 millimeters above the ao rtic arch. Right subclavian approach central line with tip overlying the superior cavoatrial junction . The NG tube tip overlies the stomach . Lungs: Diffuse low lung volumes with worsening bilateral airspace disease. Pleural: No significant pleural effusions or pneumothorax. Cardiac: The heart size is within normal limits. Bones: No acute fractures. Other: IMPRESSION: 1. Decreased lung volumes with worsening airspace opacities bilaterally likely reflectin g edema. 2. Endotracheal tube is approximately 13 millimeters above the top of the aortic arch and is in accep table position. The remaining support apparatus is in satisfactory position.
[2022-05-19 08:22] LABS: Blood Morphology Comment NOT SEEN (NOT SEEN); Platelet Estimate ADEQ
[2022-05-19] MEDS ORDERED: ERTAPENEM SODIUM 1 GM VIAL IVPB ONE (09:34)
--- NOTE | 2022-05-19 10:26 | P.PN ---
Subjective Date of Service: 05/19/22 Chief Complaint: Intra-Abdominal Hemorrhage patient on mechanical ventilation Patient is doing better he is more alert responsive and is under control Review of Systems is unable to be obtained Physical Examination - Vital Signs Temperature: 97.6 F Blood Pressure: 93/47 Pulse: 90 Respirations: 16 Pulse Ox (%): 95 - Physical Exam General: Alert, Cooperative Respiratory: Clear to auscultation bilaterally - Studies Microbiology Data (last 24 hrs): 05/17/22 17:30 Blood - Blood Anaerobic Blood Culture - Final Assessment And Plan - Current Problems (Diagnosis) (1) Intra abdominal hemorrhage Current Visit: Yes Status: Acute Plan: Patient is doing better hemoglobin stable he is to receive another unit of packed red blood cells and FFP (2) Shock Current Visit: Yes Status: Acute Plan: Still on low doses of vasopressors we will plan to wean him off (3) Respiratory failure Current Visit: Yes Status: Acute Plan: Oxygenation satisfactory advance endotracheal tube chest reviewed diminished lung volumes patient is currently on TPN we will try weaning trials on him today (4) Renal failure (ARF), acute on chronic Current Visit: Yes Status: Acute Plan: Patient's renal function is slightly worse continue with direct lactated Ringer's
--- NOTE | 2022-05-19 10:41 | P.PN ---
Subjective Date of Service: 05/19/22 Chief Complaint: Intra-Abdominal Hemorrhage patient on mechanical ventilation Subjective: Improving (Patient weaned off pressors, but intermittently restarted when sedation or pain meds give, got 1 unit PRBC last evening. urine output improved. Patient arousable on vent, follows commands, denies pain currently) Physical Examination - Vital Signs Temperature: 97.6 F Blood Pressure: 93/47 Pulse: 90 Respirations: 16 Pulse Ox (%): 95 - Physical Exam General: Alert, In no apparent distress, Cooperative HEENT: Other (intubated, NG in place, bilious) Respiratory: Diminished Cardiovascular: Regular rate/rhythm (off pressors currently, HR 89) Gastrointestinal: Other (soft, mild appropriate TTP, ND, PEYMAN remains bloody, but character slowly shifting to more sanganous) Musculoskeletal: Other - Studies Microbiology Data (last 24 hrs): 05/17/22 17:30 Blood - Blood Anaerobic Blood Culture - Final Assessment And Plan - Current Problems (Diagnosis) (1) Nontraumatic hemorrhagic shock Current Visit: Yes Status: Acute Plan: 76 year old man who presented with hemorrhagic shock due to ruptured abdominal epiploic vessel = s/p exploratory laparotomy, evaucation of intra-abdominal hematoma, control / ligation of right epiploic bleeding vessels on 05/17/2022 - Gen / Neuro: decrease Ativan to 1-2mg IV Q2 hrs prn, dilaudid IV 2mg Q2 minimize as much as possible - CVS: hemohagic hypovolemic shock with 2+ liters blood loss, hemodynamic parameters much improved - wean vasopressin, increase IV fluids for hypovolemia, tachycardia improved with HR in 80s currently, and MAP >65 - Pulm: respiratory insufficiency - continue to wean ventilator support, currently on AC, daily chest x-rays - GI: anticipate continued minor blood loss from abdominal PEYMAN drain due to patient taking Eliquis 05-17-2022, and significant intra-abdominal hemorrhage, not all clot was evacuated and significant volume of irrigation remained in abdomen, and will likely drain via PEYMAN, but output improved - FEN: IV fluids @ LR @ 150cc/hr, electrolyte replacement protocol, will start TPN, hold IVF while transfusions administered, STRICT I/O - Heme: hemorrhagic shock, Eliquis last taken 05/17/2022, will transfuse 1 unit PRBC, FFP, Platelets, recheck post transfusion PRBC, will check for DIC. - ID: wean antibiotics soon - levaquin / flagyl - Prophylaxis: No anticoagulation to be given to patient - Renal: oliguria improving - likely due to pre-renal hypovolemia - creatinine stabilizing, lactate will continue to monitor, urine output improved. - Placement / Therapy: consult case management - Endo: continue insulin sliding scale, do not administer steroids - Tubes / Lines: keep subclavian central line - in good position, PEYMAN in place, NGT, keep navarro catheter Direct Critical care time ~ 45 min
[2022-05-19] MEDS ORDERED: ERTAPENEM NA 1 GM in NA CHLORIDE 0.9% 100 ML IVPB ONE (11:00)
[2022-05-19] MEDS ORDERED: NA CHLORIDE 0.9% 100 ML ONE (11:04)
--- NOTE | 2022-05-19 13:01 | CON ---
Date of Consultation: 05/19/2022 Reason For Consultation: Elevated BUN and creatinine, fluid management. History Of Present Illness: All the information has been obtained from the record as the patient has been intubated, sedated. This is a 76-year-old gentleman with significant past medical history of colon cancer stage II on chemotherapy, who was admitted to the hospital on the with abdominal pain, found to have ruptured vessels. The patient with severe hematoma. The patient was in shock. The patient was taken to the OR. Hematoma was drained and cleaned. The patient returned to the ICU on Levophed. The patient received massive blood transfusion during these 2 days. Upon arrival to the hospital, creatinine was 1.4 and currently 2.4. The patient was oliguric. Also his GFR when he arrived to the hospital was 52. Reviewing the record, the patient was admitted last week with normal creatinine and GFR of 96, had diarrhea at that time. The patient did not manifest any thrombocytopenia. Apparently upon arrival to the hospital, part of the workup that the patient had is on the , CT abdomen and pelvis with contrast again couple of days ago on the , his creatinine was completely normal. On arrival, creatinine was 1.4. Reviewing the record of the patient, no other insulting event except the low blood pressure and the contrast. Over the night, the patient was maintained on LR, started having urine output of 50 per hour. The patient continued to be on pressor. Past Medical History: Includes colon cancer. Home Medications: Include Eliquis, fluconazole, hydrocodone, nystatin, dexamethasone, prednisone. Allergies: NO KNOWN DRUGS ALLERGY. Past Surgical History: Includes right ankle surgery, bowel resection, laparotomy, Port-A-Cath insertion, cholecystectomy, and the recent surgery in this hospitalization. Family History: None obtainable. Social History: None obtainable. Review of Systems: None obtainable. Physical Examination: Vital Signs: When I saw the patient; the patient on vent 30%, blood pressure of 93/47, pulse of 90, afebrile, T-max of 97.6. The patient over the last 24 hours had urine output of 640. The patient is positive of 3800. Chest: Crackles bilateral. Heart: S1, S2. Regular. Abdomen: Dressing. Morbidly obese. Could not appreciate any organomegaly. No guarding. Extremities: +3 edema. Neuro: The patient sedated. Laboratory Data: Upon admission to the hospital on the 26; WBC 21.1, hemoglobin 10.8, hematocrit 32.5, platelets 392. Sodium 137, potassium 4.1, bicarb 22, BUN 32, creatinine 1.4, glucose 300, calcium 8.4. Latest lab data; sodium 139, potassium 4.4, bicarb 26, BUN 47, creatinine 2.4, calcium 7.2, phosphorus 4.2, magnesium of 2, albumin is 1.6. WBC 21.4, H and H 7.9/23.7, platelets 194. Urinalysis; specific gravity 1.030 that on last admission. CT abdomen and pelvis upon admission to the hospital were with contrast showed 17 x 14 x 12 abdominal hematoma with active bleed, hemorrhagic ulcer perforation. No comment of any hydronephrosis on the kidney. Chest x-ray, cardiomegaly with congestion. Current Medications: The patient on include LR, Levophed, ertapenem, Levaquin, metronidazole, insulin, multivitamin. Assessment And Plan: 1. Acute kidney injury, multifactorial, secondary to poor perfusion, ATN secondary to low blood pressure, contrast-induced nephropathy secondary to contrast exposure, oliguric with over volume. No hyperkalemia or acidosis. Looked to me the patient on the over volume side, currently nonoliguric. I am going to go ahead and discontinue IV fluid and we will give the patient after the transfusion single dose of Lasix and we will follow up the patient closely. The patient if continued to be oliguric and kidney function continued to decline, the patient may need to be initiated on renal replacement therapy. We will follow up. 2. Hypertension, currently hypotension. Keep holding. 3. Shock, multifactorial, possible septic shock. 4. Hypovolemic shock. 5. Possible adrenal insufficiency crisis as the patient is steroid dependent. I am going to go ahead and send for cortisol level and start the patient on hydrocortisone and we will follow up with primary. Continue current antibiotic. We will adjust the dosage given the current kidney function. 6. Anemia secondary to blood loss. Continue transfusion. We will add Lasix after the transfusion today. 7. Hematoma in the abdomen, status post surgery, follow up with Surgery . 8. Respiratory failure, multifactorial, secondary to over volume, anemia. We will transfuse. We will give Lasix. Continue vent support. Follow up with Pulmonary. Time spent examining the patient [id number], reviewing the data lab and radiology, placing orders, discussing with the patient, explaining risks, benefits, alternatives, discussing with the staff member including nursing discussing with the hospitalist more than 65 minutes. RAINA Voice ID: [id number] Report ID: [id number] KAMALA
--- NOTE | 2022-05-19 15:21 | RAD REPORT ---
EXAM DESCRIPTION: US - Renal Ultrasound-Complete - 05/19/2022 3:02 pm CLINICAL HISTORY: MIGUEL COMPARISON: Abdomen Pelvis W Contrast dated 05/13/2022 FINDINGS: Both kidneys are normal in size, shape and echotexture. The right kidney measures 12.2 cm. No hydronephrosis, focal mass or perinephric fluid. The left kidney measures 12.1 cm. No hydronephrosis, focal mass or perinephric fluid. Bladder nonvisualized due to decompression by a Summers catheter. IMPRESSION: No evidence of hydronephrosis.
[2022-05-19] MEDS ORDERED: FUROSEMIDE 40 MG/4 ML VIAL IV ONE (16:18)
[2022-05-19] MEDS ORDERED: MULTIVITAMINS IV ONE ×3 (17:00)
[2022-05-19] MEDS ORDERED: DEXTROSE 20% IV ONE ×3 (17:00)
[2022-05-19] MEDS ORDERED: LIPIDS IV ONE ×3 (17:00)
[2022-05-19] MEDS ORDERED: AMINO ACIDS IV ONE ×3 (17:00)
[2022-05-19] MEDS: HYDROCORTISONE SUC 100 MG INJ IV SCH (17:18)
[2022-05-19 18:22] LABS: Hematocrit 23.3 % (39.6-49.0)
[2022-05-20] MEDS: HYDROCORTISONE SUC 100 MG INJ IV SCH ×3 (00:09→17:34)
[2022-05-20 02:21] LABS: Hematocrit 24.1 % (39.6-49.0)
[2022-05-20] MEDS: LORazepam 2 MG/ML VIAL IV PRN ×2 (03:39→05:38)
[2022-05-20] MEDS: HYDROMORPHONE HCL 2 MG/ML inj IV PRN ×3 (03:39→22:16)
[2022-05-20] MEDS: METRONIDAZOLE 500mg IVPB 500 MG/100 ML BAG IV SCH ×2 (05:37→17:35)
[2022-05-20 06:52] LABS: Absolute Lymphocytes (CBC) 0.6 K/uL (0.7-4.9); Hematocrit 25.1 % (39.6-49.0); Lymphocytes % 4.1 % (15.3-44.8); MCV 92.5 fL (80-100); MPV 8.4 fL (7.6-11.3); RBC Red Blood Cell Count 2.71 M/uL (4.33-5.43)
[2022-05-20 07:03] LABS: Albumin 1.7 g/dL (3.4-5.0); Bilirubin Total 0.3 mg/dL (0.2-1.0); Phosphorus 2.8 mg/dL (2.5-4.9); Protein, Total 4.5 g/dL (6.4-8.2)
[2022-05-20] MEDS: INSULIN -REGULAR HUMAN 50 UNIT/0.5 ML ML SQ SCH ×4 (07:35→17:35)
--- NOTE | 2022-05-20 07:40 | RAD REPORT ---
EXAM DESCRIPTION: RAD - Chest Single View - 05/20/2022 6:57 am CLINICAL HISTORY: vent protocol COMPARISON: Chest Single View dated 05/19/2022; Abdomen 1 View (KUB) dated 05/18/2022; Chest Single Vi ew dated 05/18/2022; Abdomen 1 View (KUB) dated 05/17/2022 FINDINGS: Lines: Endotracheal tube at the top of the aortic arch. Right subclavian line with tip ove rlying the superior cavoatrial junction. NG tube below the diaphragm. Lungs: Bilateral interstitial and airspace disease is similar. Low lung volumes. Pleural: Effusions present bilaterally which are likely small. Cardiac: The heart size is within normal limits. Bones: No acute fractures. Other: IMPRESSION: Pulmonary edema is similar. Support apparatus in satisfactory position.
[2022-05-20 09:05] LABS: Protime INR 1.14
[2022-05-20] MEDS: Levofloxacin 750mg IV 750 MG/150 ML BAG IV SCH (10:09)
[2022-05-20] MEDS ORDERED: HYDROMORPHONE HCL 2 MG/ML inj IV PRN (10:23)
--- NOTE | 2022-05-20 10:56 | P.PN ---
Subjective Date of Service: 05/20/22 Chief Complaint: Intra-Abdominal Hemorrhage patient on mechanical ventilation Subjective: No new changes No acute events overnight per RN. He is unable to provide history as he is intubated and sedated. Plan for possible extubation today. Review of Systems is unable to be obtained Physical Examination - Vital Signs Temperature: 97.7 F Blood Pressure: 116/57 Pulse: 83 Respirations: 18 Pulse Ox (%): 97 - Physical Exam General: In no apparent distress, Other (intubated and sedated) HEENT: Atraumatic, Mucous membr. moist/pink Neck: Supple, JVD not distended Respiratory: Clear to auscultation bilaterally, Normal air movement Cardiovascular: No edema, Regular rate/rhythm, Normal S1 S2, No gallops, No rubs, No murmurs Gastrointestinal: Normal bowel sounds, Non-distended, No rebound, No guarding, Tenderness (palpation of RUQ/mid-epigastrium) Musculoskeletal: No clubbing Integumentary: No rashes Neurological: Other (sedated) Assessment And Plan - Plan # Hemorrhagic Shock and Acute Blood Loss Anemia secondary to Ruptured Right Epiploic Artery/Vein s/p Ligation # History of Stage II Colon Cancer (Sigmoid) - General Surgery consulted and spoke with Dr. Ortez - recommendations appreciated - s/p exploratory laparotomy with ligation of right epiploic artery and vein - concern for potential DIC - will monitor closely - q6h H&H - transfuse for Hgb < 7.0 - Wean off of vasopressors as tolerated - Pulmonary Medicine consulted and Dr. Langston following - recommendations appreciated - SBT and wean to extubation if able - Incentive spirometry once extubated # KDIGO Stage III Acute Kidney Injury Likely pre-renal vs ATN from hemorrhagic shock. - Nephrology consulted - recommendations appreciated - Creatinine = up to 2.44 (was 1.56 this morning) (creatinine was 0.72 on 05/14/2022) - Urinalysis = pending - IV fluids @ 150 mL/hr as mentioned above - Monitor creatinine and urine output - If worsening, obtain renal ultrasound - Renally dose medications Hemant Mcgarry M.D. Plan to discharge in: Greater than 2 days
[2022-05-20 11:14] LABS: Hematocrit 25.6 % (39.6-49.0)
--- NOTE | 2022-05-20 12:12 | P.PN ---
Subjective Date of Service: 05/20/22 Chief Complaint: Respiratory failure Patient's condition is stable globin stable he is alert responsive is off vasopressors Review of Systems is unable to be obtained Physical Examination - Vital Signs Temperature: 97.7 F Blood Pressure: 116/57 Pulse: 83 Respirations: 18 Pulse Ox (%): 97 - Physical Exam General: Alert, Cooperative Respiratory: Clear to auscultation bilaterally, Diminished Cardiovascular: No edema, Normal S1 S2 Assessment And Plan - Current Problems (Diagnosis) (1) Intra abdominal hemorrhage Current Visit: Yes Status: Acute Plan: Patient is doing better hemoglobin stable he is to receive another unit of packed red blood cells and FFP patient is on TPN use a dose of steroid (2) Respiratory failure Current Visit: Yes Status: Acute Plan: Patient's condition is stable minimal oxygen requirement off vasopressors plan to wean off the ventilator (3) Renal failure (ARF), acute on chronic Current Visit: Yes Status: Acute Plan: Renal function is improving Qualifiers: Acute renal failure type: unspecified
[2022-05-20 13:18] LABS: Specific Gravity >= 1.030 (1.005-1.030); Urine Bilirubin Negative (Negative); Urine Blood 1+ (Negative); Urine Clarity Clear (Clear); Urine Color Yellow (Yellow); Urine Glucose 2+ (Negative); Urine Protein 1+ (Negative); Urine Urobilinogen 0.2 mg/dL (0.2-1.0); Urine pH 5.5 (5.0-7.0)
[2022-05-20 13:40] LABS: Urine Bacteria <20 /HPF (<20); Urine RBC <5 /HPF (None Seen)
[2022-05-20 13:54] LABS: Hematocrit 26.6 % (39.6-49.0)
[2022-05-20] MEDS ORDERED: MULTIVITAMINS IV SCH ×9 (17:00)
[2022-05-20] MEDS ORDERED: LIPIDS IV SCH ×6 (17:00)
[2022-05-20] MEDS ORDERED: DEXTROSE 20% IV SCH ×6 (17:00)
[2022-05-20] MEDS ORDERED: AMINO ACIDS IV SCH ×6 (17:00)
[2022-05-20] MEDS ORDERED: [UNRECOGNIZED DRUG - OTHER] IV SCH ×3 (17:00)
[2022-05-20] MEDS ORDERED: [UNRECOGNIZED DRUG - OTHER] IV SCH ×3 (17:00)
--- NOTE | 2022-05-20 17:24 | P.PN ---
Subjective Date of Service: 05/20/22 Chief Complaint: Respiratory failure Subjective: Improving (Following commands, no acute events, off pressors for > 12 hrs. Urine output much improved. Weaing Vent) Physical Examination - Vital Signs Temperature: 97.7 F Blood Pressure: 116/57 Pulse: 83 Respirations: 18 Pulse Ox (%): 97 - Physical Exam General: Alert, In no apparent distress, Cooperative HEENT: Mucous membr. moist/pink Respiratory: Diminished Cardiovascular: Regular rate/rhythm Gastrointestinal: Other (soft, mild appropriate TTP, ND, PEYMAN remains bloody, but more serous than prior, PEYMAN output less every day. incision clean and dry.) Musculoskeletal: Swelling Integumentary: Other (bilateral groin redness remains ) Assessment And Plan - Current Problems (Diagnosis) (1) Nontraumatic hemorrhagic shock Current Visit: Yes Status: Acute Plan: 76 year old man who presented with hemorrhagic shock due to ruptured abdominal epiploic vessel = s/p exploratory laparotomy, evaucation of intra-abdominal hematoma, control / ligation of right epiploic bleeding vessels on 05/17/2022 - Gen / Neuro: decrease Ativan to 1-2mg IV Q2 hrs prn, dilaudid IV 2mg Q2 minimize as much as possible - CVS: hemohagic hypovolemic shock with 2+ liters blood loss, hemodynamic parameters much improved - wean vasopressin, increase IV fluids for hypovolemia, tachycardia improved with HR in 80s currently, and MAP >65 - Pulm: respiratory insufficiency - continue to wean ventilator support, currently on AC, daily chest x-rays - GI: anticipate continued minor blood loss from abdominal PEYMAN drain due to patient taking Eliquis 05-17-2022, and significant intra-abdominal hemorrhage, not all clot was evacuated and significant volume of irrigation remained in abdomen, and will likely drain via PEYMAN, but output improved - FEN: IV fluids @ LR @ 150cc/hr, electrolyte replacement protocol, will start TPN, hold IVF while transfusions administered, STRICT I/O - Heme: hemorrhagic shock, Eliquis last taken 05/17/2022, will transfuse 1 unit PRBC, FFP, Platelets, recheck post transfusion PRBC, will check for DIC. - ID: wean antibiotics soon - levaquin / flagyl - Prophylaxis: No anticoagulation to be given to patient - Renal: oliguria improving - likely due to pre-renal hypovolemia - creatinine stabilizing, lactate will continue to monitor, urine output improved. - Placement / Therapy: consult case management - Endo: continue insulin sliding scale, do not administer steroids - Tubes / Lines: keep subclavian central line - in good position, PEYMAN in place, NGT, keep navarro catheter Direct Critical care time ~ 45 min
[2022-05-20 20:09] LABS: Hematocrit 27.3 % (39.6-49.0)
--- NOTE | 2022-05-20 20:37 | PN ---
Date of Progress Note: 05/20/2022 Chief Complaint: Elevated BUN and creatinine. History Of Present Illness: The patient is a 76-year-old man. He remains in ICU. He had significan t history of colon cancer. He remains intubated and sedated. Previously, he had chemotherapy for st age II colon cancer. He was admitted to the hospital on May 17 because of abdominal pain and he w as found to have ruptured blood vessel and developed severe hematoma. The patient was in shock. He was taken to the ER. Hematoma was drained and bleeding stopped. The patient received blood transfus ion, and he was admitted to ICU and remained on Levophed. Creatinine level was up to 2.4, but has im proved to 1.4 and stabilized and thereby improved today. CT scan of the abdomen and pelvis with contrast was done on May 14. At that time, his creatinine was within normal limit. Review of Systems: Unobtainable. The patient is intubated, sedated. Remains in ICU. Physical Examination: Lungs: Few rhonchi. Heart: S1, S2. Abdomen: Soft. Extremities: Edema present in both legs. Impression And Plan: 1.Acute kidney injury, multifactorial secondary to poor renal perfusion secondary to shock with hemo rrhagic event, shock multifactorial, possible sepsis as well due to GI pathology. The patient had pr eviously contrast exposure, and patient remained fluid overload. Urine output has improved. The pat ient was treated for hypovolemic hemorrhagic shock. Continue antibiotics for possible sepsis. The p atient will have workup for possible adrenal insufficiency. 2.Anemia secondary to blood loss. Continue blood transfusion as needed. 3.Fluid overload. The patient may need to continue Lasix to control anasarca. EB/MODL Voice ID: [id number] Report ID: [id number]
[2022-05-21] MEDS: METRONIDAZOLE 500mg IVPB 500 MG/100 ML BAG IV SCH ×3 (00:27→18:18)
[2022-05-21] MEDS: HYDROCORTISONE SUC 100 MG INJ IV SCH ×2 (00:27→08:44)
[2022-05-21 00:46] LABS: Hematocrit 25.8 % (39.6-49.0)
[2022-05-21 00:52] LABS: UR PROTEIN 62.3 mg/dL (<11.9); Urine Protein/Creatinine Ratio 0.88 ratio (<0.15)
[2022-05-21] MEDS: LORazepam 2 MG/ML VIAL IV PRN (01:09)
[2022-05-21] MEDS: HYDROMORPHONE HCL 2 MG/ML inj IV PRN ×2 (02:30→08:45)
[2022-05-21 05:39] LABS: Absolute Lymphocytes (CBC) 0.8 K/uL (0.7-4.9); Hematocrit 26.9 % (39.6-49.0); Lymphocytes % 5.6 % (15.3-44.8); MCV 92.9 fL (80-100); MPV 7.9 fL (7.6-11.3); RBC Red Blood Cell Count 2.89 M/uL (4.33-5.43)
[2022-05-21] MEDS: INSULIN -REGULAR HUMAN 50 UNIT/0.5 ML ML SQ SCH ×5 (06:00→23:30)
[2022-05-21 06:10] VITALS: BMI 43.7
[2022-05-21 06:17] LABS: Albumin 1.7 g/dL (3.4-5.0); Bilirubin Total 0.3 mg/dL (0.2-1.0); Magnesium 2.1 mg/dL (1.8-2.4); Phosphorus 1.9 mg/dL (2.5-4.9); Potassium 3.5 mmol/L (3.5-5.1); Protein, Total 4.8 g/dL (6.4-8.2)
[2022-05-21] MEDS ORDERED: POTASSIUM PHOS IN 0.9 % NACL 15 MMOL/250 ML BAG IV ONE (07:14)
--- NOTE | 2022-05-21 08:18 | EKG ---
Test Date: 2022-05-17 Test Time: 15:28:17 Engagement Mgr: LYNDA MEASUREMENT RESULTS: Intervals: Rate: 104 AL: 122 QRSD: 94 QT: 358 QTc: 470 Baldwin: P: 77 AL: 122 QRS: -44 T: 53 INTERPRETIVE STATEMENTS: Sinus tachycardia with occasional premature ventricular complexes and fusion complexes Left axis deviation Abnormal ECG Compared to ECG 05/13/2022 12:14:56 Fusion complex(es) now present Ventricular premature complex(es) now present Sinus rhythm no longer present Prolonged QT interval no longer present Electronically Signed On 05-21-22 08:12:45 CDT by Chase Paniagua
[2022-05-21 08:42] LABS: Hematocrit 26.5 % (39.6-49.0)
[2022-05-21] MEDS ORDERED: FUROSEMIDE 40 MG/4 ML VIAL IV ONE (10:57)
[2022-05-21] MEDS ORDERED: PARICALCITOL 2 MCG/ML VIAL IV SCH (11:00)
--- NOTE | 2022-05-21 11:08 | PN ---
Date of Progress Note: 05/21/2022 Subjective: The patient was admitted after ruptured vessels with hematoma. The patient was in hypovolemic shock, septic shock. Had acute kidney injury with anasarca. After fluid resuscitation, the patient converted to nonoliguric, kidney function started being improving. The patient is still over volume. Physical Examination: Vital Signs: When I saw the patient; blood pressure 145/58, pulse of 75, afebrile. The patient had good urine output of 3500, negative of 1 L. The patient was extubated. Chest: Crackles bilateral. Heart: S1, S2. Systolic murmur. Abdomen: Dressing. Mild tenderness. No guarding. Extremities: +3 edema. Neuro: Alert, opens eyes spontaneously. Laboratory Data: WBC 14 H and H 8.8/26.5. Sodium 139, potassium 3.5, bicarb 30, BUN 37, creatinine 0.9, calcium 7.7, phosphorus 1.9, magnesium 2.1, albumin is 1.7. Corrected calcium is 9.5, PTH 657. Cortisol level 106. Urinalysis; PC ratio 0.8. Current Medications: The patient on include Levaquin 750, metronidazole 500, lorazepam, hydrocortisone 50 every 8 hours, multivitamin, TPN. Assessment And Plan: 1. Acute kidney injury secondary to prerenal, poor perfusion ATN, toxic ATN, recovered, resolved, but still over volume secondary to the fluid resuscitation. Also had component of acute kidney injury secondary to the contrast, currently over volume. I am going to diurese the patient again to establish better volume control and we will follow up the patient. 2. Shock, multifactorial, secondary to adrenal crisis. 3. Hemorrhagic hypovolemic shock. 4. Septic shock, recovered. Currently on hydrocortisone, was tapered to every 8 hours of 50 mg. We are going to continue current treatment. Continue antibiotic. We will adjust the dose of Levaquin. Given the recovery of the kidney function, we will make it daily. Continue metronidazole. Follow up with primary. 5. Anasarca secondary to renal failure/fluid resuscitation. We will continue to diurese the patient to establish better volume control. The patient started to being negative from the last 48 hours. We will send for TSH. 6. Hypokalemia, hypophosphatemia. I will supplement. We will adjust his TPN. 7. Secondary hyperparathyroidism. We will start the patient on calcitriol. The patient will need evaluation later on. About primary hyperparathyroidism, we will repeat PTH. 8. Hematoma of the abdomen, status post surgery. We will follow up with Surgery. Anticoagulation on hold. Still on TPN, we will adjust the TPN. 9. Respiratory failure secondary to over volume. As above, we will try to establish better volume control with diuresis. We will follow up with Pulmonary. 10. Adrenal crisis, currently hydrocortisone being tapered. We will follow up. Time spent examining the patient [id number], reviewing the data lab and radiology, placing orders, discussing with the patient, explaining risks, benefits, alternatives, discussing with the staff member including nursing discussing with the hospitalist more than 35 minutes. RAINA Voice ID: [id number] Report ID: [id number] MTDD
--- NOTE | 2022-05-21 12:08 | P.PN ---
Subjective Date of Service: 05/21/22 Chief Complaint: Respiratory failure Patient is doing well he was extubated yesterday hemoglobin stable alert and responsive on TPN Review of Systems Respiratory: Shortness of Breath Gastrointestinal: Abdominal Pain Physical Examination - Vital Signs Temperature: 97.1 F Blood Pressure: 160/64 Pulse: 61 Respirations: 16 Pulse Ox (%): 97 - Physical Exam General: Alert, Oriented x3, Cooperative Respiratory: Clear to auscultation bilaterally, Diminished Cardiovascular: No edema, Regular rate/rhythm Assessment And Plan - Current Problems (Diagnosis) (1) Intra abdominal hemorrhage Current Visit: Yes Status: Acute Plan: Patient's hemoglobin is now stable output has decreased hemodynamically stable DC hydrocortisone renal function is now normal patient is on IV Lasix (2) Respiratory failure Current Visit: Yes Status: Acute Plan: Patient was extubated successfully yesterday chest x-ray shows and possibly an effusion on the right side (3) Renal failure (ARF), acute on chronic Current Visit: Yes Status: Acute Plan: Renal function is improving Qualifiers: Acute renal failure type: unspecified
[2022-05-21] MEDS ORDERED: AMINO ACIDS 5 %/DEXTROSE 20 % 2,000 ML IV SCH (17:00)
[2022-05-21] MEDS ORDERED: [UNRECOGNIZED DRUG - OTHER] IV SCH ×3 (17:00)
[2022-05-21] MEDS ORDERED: AMINO ACIDS IV SCH ×3 (17:00)
[2022-05-21] MEDS ORDERED: AA 5%/D20W/ELECTROLYTES-TPN 2,000 ML IV SCH (17:00)
[2022-05-21] MEDS ORDERED: WATER FOR INJ STERILE IV SCH ×3 (17:00)
[2022-05-21] MEDS ORDERED: DEXTROSE 20% IV SCH ×3 (17:00)
--- NOTE | 2022-05-21 18:35 | P.PN ---
Subjective Date of Service: 05/21/22 Chief Complaint: Respiratory failure No acute events overnight. He was extubated yesterday. He reports that he has some abdominal pain, but it is relatively well controlled on his current pain regimen. There is moderate output from his NG tube. Review of Systems 10-point ROS is otherwise unremarkable Gastrointestinal: Nausea, Abdominal Pain Physical Examination - Vital Signs Temperature: 97.3 F Blood Pressure: 151/80 Pulse: 88 Respirations: 14 Pulse Ox (%): 96 - Physical Exam General: Alert, In no apparent distress, Oriented x3 HEENT: Atraumatic, PERRLA, Mucous membr. moist/pink, Other (NG tube in place with moderate green-brown gastric output), EOMI, Sclerae nonicteric Neck: Supple, JVD not distended Respiratory: Clear to auscultation bilaterally, Normal air movement Cardiovascular: No edema, Regular rate/rhythm, Normal S1 S2, No gallops, No rubs, No murmurs Gastrointestinal: Hypoactive, No rebound, No guarding, Distended, Tenderness (RUQ/mid-epigastrium) Musculoskeletal: No clubbing Integumentary: No rashes Neurological: Normal speech, Cranial nerves 3-12 intact, Normal affect Assessment And Plan - Plan # Hemorrhagic Shock and Acute Blood Loss Anemia secondary to Ruptured Right Epiploic Artery/Vein s/p Ligation # History of Stage II Colon Cancer (Sigmoid) - General Surgery consulted and spoke with Dr. Ortez - recommendations appreciated - s/p exploratory laparotomy with ligation of right epiploic artery and vein - concern for potential DIC - will monitor closely - q6h H&H - transfuse for Hgb < 7.0 - Wean off of vasopressors as tolerated - Pulmonary Medicine consulted and Dr. Langston following - recommendations appreciated - Doing well post-extubation - Incentive spirometry # KDIGO Stage III Acute Kidney Injury (resolved) Likely pre-renal vs ATN from hemorrhagic shock. - Nephrology consulted - recommendations appreciated - Creatinine = 0.95 (creatinine was 0.72 on 05/14/2022) - Urinalysis = 1 + blood, < 5 RBCs, 2+ glucose - Monitor creatinine and urine output - Renally dose medications Hemant Mcgarry M.D.
[2022-05-22] MEDS: METRONIDAZOLE 500mg IVPB 500 MG/100 ML BAG IV SCH (00:46)
[2022-05-22 05:11] LABS: Albumin 1.8 g/dL (3.4-5.0); Bilirubin Total 0.5 mg/dL (0.2-1.0); Phosphorus 1.4 mg/dL (2.5-4.9); Protein, Total 4.8 g/dL (6.4-8.2)
[2022-05-22] MEDS: INSULIN -REGULAR HUMAN 50 UNIT/0.5 ML ML SQ SCH ×2 (06:00→11:28)
[2022-05-22] MEDS ORDERED: HYDROCODONE/APAP 5/325 MG TAB PO PRN (08:14)
[2022-05-22 08:24] LABS: Absolute Lymphocytes (CBC) 1.6 K/uL (0.7-4.9); Hematocrit 29.8 % (39.6-49.0); MCV 92.2 fL (80-100); MPV 7.8 fL (7.6-11.3); RBC Red Blood Cell Count 3.24 M/uL (4.33-5.43)
[2022-05-22 08:49] VITALS: O2SAT 97
[2022-05-22] MEDS ORDERED: Levofloxacin 750mg IV 750 MG/150 ML BAG IV SCH (09:00)
[2022-05-22] MEDS ORDERED: FUROSEMIDE 40 MG/4 ML VIAL IV SCH (09:00)
[2022-05-22] MEDS ORDERED: POTASSIUM PHOS IN 0.9 % NACL 15 MMOL/250 ML BAG IV ONE (10:45)
[2022-05-22] MEDS ORDERED: POTASSIUM 25 MEQ EFFERV TAB PO ONE (11:00)
[2022-05-22 11:37] LABS: Blood Morphology Comment NOT SEEN (NOT SEEN); Platelet Estimate ADEQ
--- NOTE | 2022-05-22 12:11 | P.DS ---
Admission Date: 05/17/22 Discharge Date: 05/22/22 Disposition: [facility] Discharge Condition: FAIR Reason for Admission: Respiratory failure Consultations: 1. General Surgery 2. Pulmonary/Critical Care Medicine Procedures: - 05/17/2022: Exploratory Laparotomy with Hematoma Evacuation and Ligation of Right Epiploic Artery/Vein Hospital Course: DIAGNOSES: # Hemorrhagic Shock and Acute Blood Loss Anemia secondary to Ruptured Right Epiploic Artery/Vein s/p Exploratory Laparotomy with Hematoma Evacuation and Ligation of Epiploic Artery/Vein # History of Stage II Colon Cancer (Sigmoid) on Chemotherapy # KDIGO Stage III Acute Kidney Injury (resolved) # History of Pulmonary Embolism on Apixaban # Morbid Obesity (BMI 43.8 kg/m2) # Hypokalemia # Hypophosphatemia HOSPITAL COURSE: Mr. Jose Elias Lunsford is a pleasant 76-year-old male with a past medical history significant for stage II sigmoid colon cancer on chemotherapy, history of pulmonary embolism on apixaban, and morbid obesity who was admitted to the [facility] on 05/17/2022 for abdominal pain. Upon further evaluation, he was found to be in hemorrhagic shock. A CT chest/abdomen/pelvis revealed, "large 17 x 14 x 12 centimeter anterior upper abdominal hematoma with active bleeding seen along the anterior margin. The site of active bleeding appears to track to a small vessel coursing over the top of the hematoma coursing from the celiac artery network. Gastric antrum and duodenal bulb margins are poorly defined. The hematoma abuts the anterior inferior margin of the antrum and there is stranding and fluid in this region. Rupture of a gastric antrum or duodenal bulb AVM would be possible. Hemorrhagic ulcer perforation would be possible etiology though neither the antrum or the bulb have an abnormal appearance 4 days earlier. No extraluminal free air confirmed which would be expected with ulcer perforation. CT chest has no acute findings. No additional acute findings in the CT abdomen." He was admitted to the Medicine service for further evaluation. General Surgery was consulted and he was evaluated by Dr. Ortez. He was immediately taken to the operating room and underwent an exploratory laparotomy with hematoma evacuation and ligation of the right epiploic artery and vein. His apixaban was held and he was admitted to the intensive care unit post-operatively. Over the course of his hospitalization, he continued to improve clinically. He was extubated, without any issues. His hemorrhagic shock was complicated by a stage III acute kidney injury, which also resolved prior to discharge. It was thought that he would benefit from a long-term acute care facility for continued care prior to discharge home. He was accepted to [facility] for further management. Doc-to-doc was completed with Dr. Nolberto Reyes, who has generously accepted him for transfer. I discussed the concern with holding his anticoagulation in the setting of reported pulmonary embolism. Dr. Reyes agreed to have Hematology consult on his case at the [facility]. On 05/22/2022, he was seen on rounds and deemed medically stable for transfer to [facility]. He was given the opportunity to ask questions and reported no further questions. Furthermore, all questions were answered to the best of my ability. A copy of this discharge summary will be sent to the above providers to facilitate continuity of care. Today, I personally spent 40 minutes on his case, of which greater than 50% of the time was spent in patient education, counseling, and coordination of care as described above. - Physical Exam General: Alert, In no apparent distress, Oriented x3 HEENT: Atraumatic, PERRLA, Mucous membr. moist/pink, EOMI, Sclerae nonicteric Neck: Supple, JVD not distended Respiratory: Clear to auscultation bilaterally, Normal air movement Cardiovascular: No edema, Regular rate/rhythm, Normal S1 S2, No gallops, No rubs, No murmurs Gastrointestinal: Hypoactive, No rebound, No guarding, Distended, Mild tenderness (RUQ/mid-epigastrium) Musculoskeletal: No clubbing Integumentary: No rashes Neurological: Normal speech, Cranial nerves 3-12 intact, Normal affect Vital Signs/Physical Exam: Temp Pulse Resp BP Pulse Ox 97.6 F 98 H 20 114/73 94 05/22/22 08:00 05/22/22 10:00 05/22/22 10:00 05/22/22 10:00 05/22/22 09:00 Laboratory Data at Discharge: WBC 14.50 K/uL (4.3-10.9) H 05/22/22 07:56 Hgb 10.1 g/dL (13.6-17.9) L 05/22/22 07:56 Hct 29.8 % (39.6-49.0) L 05/22/22 07:56 Plt Count 238 K/uL (152-406) 05/22/22 07:56 PT 13.5 SECONDS (9.2-12.8) H 05/20/22 07:58 INR 1.14 05/20/22 07:58 APTT 21.9 SECONDS (21.7-34.4) 05/20/22 07:58 Sodium 141 mmol/L (136-145) 05/22/22 04:35 Potassium 3.0 mmol/L (3.5-5.1) L 05/22/22 04:35 BUN 32 mg/dL (7-18) H 05/22/22 04:35 Creatinine 0.74 mg/dL (0.55-1.3) 05/22/22 04:35 Glucose 144 mg/dL (74-106) H 05/22/22 04:35 Uric Acid 7.0 mg/dL (3.5-7.2) 05/19/22 05:19 Phosphorus 1.4 mg/dL (2.5-4.9) L 05/22/22 04:35 Magnesium 2.1 mg/dL (1.8-2.4) 05/21/22 05:22 Total Bilirubin 0.5 mg/dL (0.2-1.0) 05/22/22 04:35 AST 20 U/L (15-37) 05/22/22 04:35 ALT 27 U/L (12-78) 05/22/22 04:35 Alkaline Phosphatase 58 U/L (45-117) 05/22/22 04:35 Triglycerides 232 mg/dL (<150) H 05/18/22 04:44 Cholesterol 110 mg/dL (<200) 05/18/22 04:44 HDL Cholesterol 30 mg/dL (40-60) L 05/18/22 04:44 Cholesterol/HDL Ratio 3.67 05/18/22 04:44 Home Medications: Fluconazole [Diflucan] 200 mg PO DAILY #10 mg 05/14/22 Hydrocodone 7.5/APAP 325 [Delia 7.5/325 mg*] 1 tab PO Q4HP PRN #30 tab 05/14/22 Nystatin Powder [Mycostatin (Powder)*] 1 appl TOP BID #1 btl 05/14/22 dexAMETHasone [Dexamethasone] 4 mg PO BIDWM #60 mg 05/14/22 Furosemide [Lasix 40 MG INJ*] 40 mg IV DAILY vial 05/22/22 Insulin -Regular Human [Novolin -R*] See Protocol SQ Q6HR ml 05/22/22 Physician Discharge Instructions: You are being discharged to [facility]. Following discharge, please schedule: 1. An appointment with your PCP in 3-5 days 2. An appointment with General Surgery (Dr. Ortez) in 1-2 weeks Diet: Clears Activity: Fall precautions Followup: NONE,NONE [Primary Care Provider] - Pilo Ortez MD [ACTIVE - CAN ADMIT] - Time spent managing pt's care (in minutes): 40
--- NOTE | 2022-05-22 13:33 | PN ---
Date of Progress Note: 05/22/2022 Subjective: The patient doing better. Extubated. NG tube has been removed. Started on liquid diet and still on TPN. Physical Examination: Vital Signs: Blood pressure 114/73, pulse of 98, afebrile. The patient had good urine output of 1900. The patient negative of 1 L. Chest: Decreased entry bilateral base. Heart: S1, S2. Regular. Abdomen: Dressing. Extremities: +3 edema. Neuro: Alert. Pleasantly confused. Laboratory Data: WBC 14.5, H and H of 10.1/29.8. Sodium 141, potassium 3, bicarb 30, BUN 32, creatinine 0.7. Calcium 7.6, phosphorus 1.4, albumin 1.8. Corrected calcium is 9.2. Current Medications: The patient on include Lasix 40 mg daily, hydrocodone, TPN. Assessment And Plan: 1. Acute kidney injury secondary to contrast-induced nephropathy, poor perfusion, ATN, recovered, resolved, still over volume. I am going to continue diuresis for the patient after the dose of Lasix today almost put 1 L. We will follow up. 2. Shock secondary to hypovolemic shock/adrenal crisis. Hydrocortisone has been discontinued. Blood pressure has been stable off pressor. Continue Lasix. We will monitor. Continue p.r.n. transfusion. 3. Over volume anasarca secondary to fluid resuscitation. No significant protein urea less than 1 g and TSH not done. I am going to continue diuresis. We will send for TSH for the patient. 4. Patient TPN. Plan to discontinue after advanced diet. 5. Hypokalemia, hypophosphatemia. We will supplement. 6. Respiratory failure secondary to over volume. Continue diuresis. 7. Adrenal crisis, off steroid. We will follow up. Time spent examining the patient [id number], reviewing the data lab and radiology, placing orders, discussing with the patient, explaining risks, benefits, alternatives, discussing with the staff member including nursing discussing with the hospitalist more than 35 minutes. RAINA Voice ID: [id number] Report ID: [id number] KAMALA
[2022-05-22 14:16] VITALS: BP 129/68; TEMP 98.7
[2022-05-22] MEDS ORDERED: AMINO ACIDS IV SCH ×9 (17:00)
[2022-05-22] MEDS ORDERED: DEXTROSE 20% IV SCH ×9 (17:00)
[2022-05-22] MEDS ORDERED: MULTIVITAMINS IV SCH ×9 (17:00)
[2022-05-22] MEDS ORDERED: [UNRECOGNIZED DRUG - OTHER] IV SCH ×9 (17:00)
--- NOTE | 2022-05-22 20:31 | P.PN ---
Subjective Date of Service: 05/22/22 Chief Complaint: Respiratory failure Subjective: Improving (Patient extubated, off pressors, minimal abdominal tenderness, NG removed yesterday.+ bowel movement) Physical Examination - Vital Signs Temperature: 98.7 F Blood Pressure: 129/68 Pulse: 103 Respirations: 21 Pulse Ox (%): 94 - Physical Exam General: Alert, In no apparent distress, Cooperative Neck: Supple Respiratory: Normal air movement, Other (IS ~ 2000cc) Cardiovascular: Regular rate/rhythm Gastrointestinal: Other (soft, mild appropriate TTP, ND, PEYMAN in place- serosang, mostly serous, simon clean and dry, ) Musculoskeletal: Other (swelling to bilateral lower extremities) Integumentary: Other (bilateral inguinal cellulitis improving) Neurological: Normal speech - Studies Microbiology Data (last 24 hrs): 05/17/22 17:30 Blood - Blood Aerobic Blood Culture - Final No growth in 5 days. 05/17/22 17:30 Blood - Blood Anaerobic Blood Culture - Final 05/17/22 17:00 Blood - Blood Aerobic Blood Culture - Final No growth in 5 days. 05/17/22 17:00 Blood - Blood Anaerobic Blood Culture - Final No growth in 5 days. Assessment And Plan - Current Problems (Diagnosis) (1) Nontraumatic hemorrhagic shock Status: Acute Plan: 76 year old man who presented with hemorrhagic shock due to ruptured abdominal epiploic vessel = s/p exploratory laparotomy, evaucation of intra-abdominal hematoma, control / ligation of right epiploic bleeding vessels on 05/17/2022 - Gen / Neuro: DC Ativan t, dilaudid IV 2mg Q2 minimize as much as possible, start PO norco, encourage PO, minimize IV - CVS: hemohagic hypovolemic shock with 2+ liters blood loss, hemodynamic parameters much improved - off vasopressin for 2 days, decrease IV fluids for to encourage PO, continue TPN, tachycardia improved with HR in 80s currently, and MAP >65 - Pulm: respiratory insufficiency resolved - continue to encourage incentive spirometry - GI: anticipate continued minor blood loss from abdominal PEYMAN drain due to patient taking Eliquis 05-17-2022, and significant intra-abdominal hemorrhage, no t all clot was evacuated and significant volume of irrigation remained in abdomen, and will likely drain via PEYMAN, but output improved, and now serous predominantly beginning on 05/21/22 - FEN: IV fluids - HL, continue electrolyte replacement protocol, will continue TPN, STRICT I/O, DC navarro, start po clears and advance as tolerated, when nutrition goals met, DC TPN - Heme: hemorrhagic shock, Gurdeep last taken 05/17/2022 - ID: DC antibiotics - levaquin / flagyl - Prophylaxis: No anticoagulation to be given to patient - Renal: oliguria improving - was likely due to pre-renal hypovolemia ATN, - c reatinine improved, will continue to monitor, urine output improved. - Placement / Therapy: consult case management, LTAC evaluation - Endo: continue insulin sliding scale, do not administer steroids - Tubes / Lines: keep subclavian central line - in good position, PEYMAN in place, DC NGT, keep navarro catheter - DC PEYMAN when output <50cc if serous. - jose boot wraps bilateral lower extremities and elevate for chronic lymphedema Direct Critical care time ~ 45 min
[2022-05-23] MEDS ORDERED: WATER FOR INJ STERILE IV SCH ×4 (17:00)
[2022-05-23] MEDS ORDERED: DEXTROSE 20% IV SCH ×4 (17:00)
[2022-05-23] MEDS ORDERED: AMINO ACIDS IV SCH ×4 (17:00)
[2022-05-23] MEDS ORDERED: [UNRECOGNIZED DRUG - OTHER] IV SCH ×4 (17:00)
== END 2022-05-22 14:15 | DRG 853 ==
LOC: ER 15:09 → ERHOLD 18:41 → 3RD-ICU 19:18
PROVIDERS: ADMIT Internal Medicine Sleep Medicine; ATTEND Internal Medicine
PROC: 0W3P0ZZ Control Bleeding in Gastrointestinal Tract, Open Approach (ICD-10-PCS; 2022-05-17)
PROC: 5A1945Z Respiratory Ventilation, 24-96 Consecutive Hours (ICD-10-PCS; 2022-05-17)
PROC: 0BH17EZ Insertion of Endotracheal Airway into Trachea, Via Natural or Artificial Opening (ICD-10-PCS; 2022-05-17)
PROC: 0WCP0ZZ Extirpation of Matter from Gastrointestinal Tract, Open Approach (ICD-10-PCS; principal; 2022-05-17 19:00)
PROC: 3E0336Z Introduction of Nutritional Substance into Peripheral Vein, Percutaneous Approach (ICD-10-PCS; 2022-05-18)
PROC: 30233P1 Transfusion of Nonautologous Frozen Red Cells into Peripheral Vein, Percutaneous Approach (ICD-10-PCS; 2022-05-19)
PROC: 30233R1 Transfusion of Nonautologous Platelets into Peripheral Vein, Percutaneous Approach (ICD-10-PCS; 2022-05-19)
DX: A41.9 Sepsis, unspecified organism (principal); J96.00 Acute respiratory failure, unspecified whether with hypoxia or hypercapnia; R57.8 Other shock; N17.0 Acute kidney failure with tubular necrosis; R65.21 Severe sepsis with septic shock; I77.2 Rupture of artery; Z68.42 Body mass index [BMI] 45.0-49.9, adult; C18.9 Malignant neoplasm of colon, unspecified; E87.2 Acidosis; D62 Acute posthemorrhagic anemia; N25.81 Secondary hyperparathyroidism of renal origin; E27.2 Addisonian crisis; E66.01 Morbid (severe) obesity due to excess calories; N18.9 Chronic kidney disease, unspecified; E86.1 Hypovolemia; E87.70 Fluid overload, unspecified; E83.39 Other disorders of phosphorus metabolism; E87.6 Hypokalemia; K66.0 Peritoneal adhesions (postprocedural) (postinfection); N14.1 Nephropathy induced by other drugs, medicaments and biological substances; T50.8X5A Adverse effect of diagnostic agents, initial encounter; R58 Hemorrhage, not elsewhere classified; Z79.4 Long term (current) use of insulin; Z78.1 Physical restraint status; Z79.01 Long term (current) use of anticoagulants; Z90.49 Acquired absence of other specified parts of digestive tract; Z79.52 Long term (current) use of systemic steroids; Z79.899 Other long term (current) drug therapy; Z86.711 Personal history of pulmonary embolism; Z20.822 Contact with and (suspected) exposure to COVID-19
CPT/HCPCS: 36415; 36430; 51702; 71045; 71260; 74018; 74177; 76770; 80053; 80061; 80069; 81001; 82533; 82550; 82570; 82805; 82947; 83605; 83735; 83970; 84100; 84134; 84156; 84550; 85014; 85018; 85025; 85049; 85362; 85379; 85384; 85610; 85730; 86705; 86706; 86803; 86850; 86900; 86901; 86927; 87040; 87340; 87811; 88300; 93005; 94003; 94760; 97110; 97161; 99251; 99285; C9113; J1100; J1170; J1335; J1720; J1815; J1940; J2001; J2250; J2405; J2501; J2543; J2704; J2710; J3010; J3480; J7030; J7050; J7060; J7120; P9016; P9017; P9035; P9059; P9100; Q9967; Q9968

== ENCOUNTER 2022-09-05 09:33 | Inpatient (IN) | payer OTHER ==
--- NOTE | 2022-09-05 10:16 | RAD REPORT ---
EXAM DESCRIPTION: RAD - Chest Single View - 09/05/2022 10:09 am CLINICAL HISTORY: AMS, shortness of breath COMPARISON: Portable 05/20/2022 TECHNIQUE: AP portable chest image was obtained 09/05/2022 10:09 am . FINDINGS: Lung volumes are low. No peripheral mass or consolidation identifiable. Failure or volume overload are not suspected. All tubes and lines seen on the comparison study have been removed. Heart and vasculature are normal. No measurable pleural effusion and no pneumothorax. No acute bony abnorm ality seen. No acute aortic findings suspected. IMPRESSION: No acute cardiopulmonary process.
[2022-09-05 10:21] LABS: Barbiturates NEGATIVE (NEGATIVE); Benzodiazepines NEGATIVE (NEGATIVE); Cocaine NEGATIVE (NEGATIVE); METHAMPHETAM NEGATIVE (NEGATIVE); Methadone NEGATIVE (NEGATIVE); Opiates NEGATIVE (NEGATIVE); Phencyclidine NEGATIVE (NEGATIVE); THC Cannibis NEGATIVE (NEGATIVE)
--- NOTE | 2022-09-05 10:21 | RAD REPORT ---
EXAM DESCRIPTION: CT - Head Brain Wo Cont - 09/05/2022 10:07 am CLINICAL HISTORY: AMS COMPARISON: CT HEAD BRAIN WWO CONTRAST dated 09/04/2013 TECHNIQUE: Axial 5 mm thick images of the head were obtained without IV contrast. All CT scans are performed using dose optimization technique as appropriate and may include automated exposure control or mA/KV adjustment according to patient size. FINDINGS: No intracranial hemorrhage, mass, edema or shift of mid-line structures. No acute cortical based infarction, cortical edema or sulcal effacement. Atrophy and chronic ischemic changes are mild to moderate for age only mildly progressive from the remote 2013 study. Chronic ischemic changes can mask nonhemorrhagic CVA. No abnormal extra-axial fluid collections. Ventricles are in proportion to volume loss. Arterial and physiologic calcifications are present. Mastoid air cells and visualized portions of the paranasal sinuses are clear. No acute bony findings. IMPRESSION: No acute intracranial finding identifiable. Atrophy and chronic ischemic changes are present showing only mild progression from 2013 comparison.
[2022-09-05 10:30] LABS: Urine Bacteria <20 /HPF (<20); Urine Bilirubin NEGATIVE (Negative); Urine Blood Trace (Negative); Urine Clarity Turbid (Clear); Urine Color Yellow (Yellow); Urine Glucose NEGATIVE (Negative); Urine Mucus Slight /HPF (None Seen); Urine Protein TRACE (Negative); Urine Urobilinogen Normal (Normal)
[2022-09-05 10:46] LABS: Absolute Lymphocytes (CBC) 2.9 K/uL (0.7-4.9); Hematocrit 41.6 % (39.6-49.0); Lymphocytes % 27.2 % (15.3-44.8); MCV 91.7 fL (80-100); MPV 7.8 fL (7.6-11.3); Protime INR 1.1; RBC Red Blood Cell Count 4.53 M/uL (4.33-5.43)
[2022-09-05 11:07] LABS: ALT/SGPT 22 U/L (16-61); AST/SGOT 22 U/L (15-37); Albumin 2.3 g/dL (3.4-5.0); Alkaline Phosphatase 78 U/L (45-117); BUN Blood Urea Nitrogen 10 mg/dL (7-18); Bicarbonate 31 mmol/L (21-32); Bilirubin Total 0.3 mg/dL (0.2-1.0); Glomerular Filtration Rate 105 ml/min (=/>90); Glucose Level 126 mg/dL (74-106); Magnesium 2.1 mg/dL (1.6-2.4); NT PRO-BNP 825 pg/mL (<125); Potassium 4.3 mmol/L (3.5-5.1); Protein, Total 6.3 g/dL (6.4-8.2); Sodium Level 137 mmol/L (136-145); Troponin High Sensitivity 18.9 pg/mL (<58.9)
[2022-09-05 11:27] LABS: Bilirubin Direct < 0.1 mg/dL (0-0.2)
[2022-09-05] MEDS ORDERED: CEFTRIAXONE 1000 MG/VIAL ONE (11:55)
[2022-09-05] MEDS ORDERED: NA CHLORIDE 0.9% 1,000 ML ONE (11:55)
[2022-09-05 11:59] LABS: SARS-COV-2 RT PCR POSITIVE (NEGATIVE)
--- NOTE | 2022-09-05 13:00 | ER ---
Nurse's Notes [facility] Name: Jose Elias Lunsford Age: 76 yrs Sex: Male : 1945 Arrival Date: 09/05/2022 Time: 09:47 Bed 14 Private MD: Diagnosis: UTI/ Urinary tract infection, site not specified;Visual hallucinations Presentation: 09/05 09:48 Chief complaint: EMS states: patient is having hallucinations, he is alert and ko1 oriented. Coronavirus screen: At this time, the client does not indicate any symptoms associated with coronavirus-19. Ebola Screen: No symptoms or risks identified at this time. Initial Sepsis Screen: Does the patient meet any 2 criteria? No. Patient's initial sepsis screen is negative. Does the patient have a suspected source of infection? No. Patient's initial sepsis screen is negative. Risk Assessment: Do you want to hurt yourself or someone else? Patient reports no desire to harm self or others. Onset of symptoms was September 05, 2022. 09:48 Method Of Arrival: EMS: [facility] ko1 09:48 Acuity: SHANA 3 ko1 Triage Assessment: 09:51 General: Appears in no apparent distress. comfortable, unkempt, Behavior is calm, ko1 cooperative, appropriate for age. Pain: Denies pain. Historical: - Allergies: 09:51 No Known Allergies; ko1 - Home Meds: 09:51 apixaban Oral [Active]; Dexamethasone Oral [Active]; fluconazole Oral [Active]; ko1 loperamide Oral [Active]; Melatonin Oral [Active]; Nystatin Oral [Active]; Naproxen Oral [Active]; OMEGA-2 [Active]; IRON,C4 [Active]; Ondansetron Oral [Active]; Prednisolone Oral [Active]; sennosides Oral [Active]; Triamterene-Hydrochlorothiazid Oral [Active]; - PMHx: 09:51 colon CA with chemo; ibs; ko1 - PSHx: 09:51 colon resection; ko1 - Immunization history:: Adult Immunizations unknown. - Social history:: Smoking status: Patient denies any tobacco usage or history of. Screenin:50 [facility] ED Fall Risk Assessment (Adult) History of falling in the last 3 months, ko1 including since admission No falls in past 3 months (0 pts) Confusion or Disorientation Yes (5 pts) Intoxicated or Sedated No (0 pts) Impaired Gait Yes (1 pt) Mobility Assist Device Used Yes (1 pt) Altered Elimination No (0 pt) Score/Fall Risk Level 3 or more points = High Risk Oriented to surroundings, Maintained a safe environment, Educated pt \T\ family on fall prevention, incl call for assistance when getting out of bed, Assessed \T\ reinforced patient's understanding of fall precautions, Provided non-skid footwear, Hourly rounding (assess needs \T\ fall precautionary measures) done, Used ambulatory aids as needed (educated on \T\ assisted with), Used gait belt as appropriate Implemented a Fall Risk Plan of Care, Apply high fall risk patient identification: yellow non skid footwear/ fall signage, Remained w/in arm's length of patient and in sight while toileting, Offered frequent toileting (1:1 observation), Remained with patient while ambulating, Utilized family, sitter, or virtual relay shop supervisor as indicated. Humpty Dumpty Scale Fall Assessment Tool (age< 18yrs) Age 13 years and above (1 pt) Gender Male (2 pts) Diagnosis Neurological diagnosis (4 pts) Cognitive Impairments Oriented to own ability (1 pt) Environmental Factors Patient placed in bed (2 pts) Medication Usage Other medications/ None (1 pt) Fall Risk Score/ Level Low Fall Risk: </= 11 points Oriented to surroundings, Maintained a safe environment: Age specific bed with railing, Bed in low position\T\ wheels locked, Assess need for siderail use, Locks on, Rm \T\ paths clutter \T\ obstacle free, Proper lighting, Call light, personal item w/in reach, Alarms as needed, Educated pt \T\ family on fall prevention, incl. call for assistance when getting out of bed, Assessed \T\ reinforced patient's understanding of fall precautions, Provided non-skid footwear, Hourly rounding (assess needs \T\ fall precautionary measures) Use of ambulatory aids, as needed (educated on \T\ assisted with), Used gait belt as appropriate. Abuse screen: Denies threats or abuse. Denies injuries from another. Nutritional screening: No deficits noted. Tuberculosis screening: No symptoms or risk factors identified. Fall Risk No fall in past 12 months (0 pts). Secondary diagnosis (15 points) impaired mobility, IV access (20 points). Ambulatory Aid- None/Bed Rest/Nurse Assist (0 pts). Gait- Weak (10 pts.). Mental Status- Oriented to own ability (0 pts). Total Brunson Fall Scale indicates High Risk Score (45 or more points). Fall prevention measures have been instituted. Side Rails Up X 2 Placed Close to Nursing Station Frequent Obs/Assessments Occuring Family Present and informed to notify staff if the need to leave the bedside As available patient and family educated on Fall Prevention Program and Strategies. Assessment: 09:50 General: Appears in no apparent distress. comfortable, unkempt, Behavior is calm, ko1 cooperative, appropriate for age, hallucinating, seeing people in the room that are not there. Patient has asked me if anyone else was in the room except me and him, I replied no. He laughed and said he sees another person across the room. Pain: Denies pain. Neuro: Reports hallucinations. Cardiovascular: No deficits noted. Respiratory: Breath sounds with wheezes bilaterally. GI: No deficits noted. : No deficits noted. EENT: No deficits noted. Derm: Skin is pale, redness to groin area, smells strongly of urine. Musculoskeletal: No deficits noted. 11:20 Reassessment: Patient continues to talk to people in the room that are not there, ko1 continues to hallucinate. 13:54 Reassessment: Spoke to [place] Pt's home health nurse, , reports pt live [place] alone and has no family in the area. His passed a year ago and 2 relatives that live out of states. Pt has caretakers from 0900 to 1100 and 1700 to 2100 daily. Pt has been hallucinating x 2 days, normally A\T\Ox4 without hallucinations and bed bound. ERP notified and will have hospitalist to evaluate pt for admission. 16:48 Reassessment: spoke with sherin at [facility], she states patient is not a psych ko1 candidate, the people he sees in the room do not tell him to hurt himself or anyone else. Notified provider Garrison LAIRD. 17:25 Reassessment: No changes from previously documented assessment. ko1 Vital Signs: 09:48 BP 117 / 85; Pulse 93; Resp 18; Temp 98.8(O); Pulse Ox 95% on R/A; Weight 122.47 kg ko1 (R); Height 6 ft. 0 in. (182.88 cm) (R); Pain 0/10; 10:48 BP 129 / 64; Pulse 98; Resp 18; Pulse Ox 96% on R/A; ko1 11:20 BP 120 / 71; Pulse 103; Pulse Ox 99% on R/A; ko1 14:48 BP 100 / 58; ko1 15:42 BP 126 / 59; Pulse 98; Resp 16; Pulse Ox 99% on R/A; ko1 17:25 BP 104 / 61; Pulse 97; Pulse Ox 99% on R/A; ko1 09/06 03:05 BP 112 / 63; Pulse 103; Resp 19 S; Pulse Ox 93% on R/A; ha1 09/05 09:48 Body Mass Index 36.62 (122.47 kg, 182.88 cm) ko1 ED Course: 09/05 09:47 Patient arrived in ED. jl7 09:47 Andrzej Patel PA is PHCP. cp 09:47 Peterson Brice MD is Attending Physician. cp 09:48 Mary Lou Terrell, ESTEBAN is Primary Nurse. ko1 09:50 Patient has correct armband on for positive identification. Fall risk band placed. ko1 Placed in gown. Bed in low position. Call light in reach. Side rails up X2. Client placed on continuous cardiac and pulse oximetry monitoring. NIBP monitoring applied. quality assurance monitor body on. Noise minimized. Warm blanket given. Pillow given. Verbal reassurance given. Head of bed elevated. 09:51 Triage completed. ko1 10:[address] via stretcher. ko1 10:00 Arm band placed on right wrist. jl7 10:09 CT Head Brain wo Cont In Process Unspecified. EDMS 10:11 XRAY Chest (1 view) In Process Unspecified. EDMS 10:15 Patient moved back from CT. ko1 10:16 Urinalysis W/Microscopic Sent. ko1 10:16 UDS Sent. ko1 10:20 Inserted saline lock: 22 gauge in left antecubital area, using aseptic technique. Blood ko1 collected. 10:20 No provider procedures requiring assistance completed. Patient maintains SpO2 ko1 saturation greater than 95% on room air. 10:46 COVID-19/FLU A+B Sent. ko1 10:46 Procalcitonin Sent. ko1 10:46 Blood Culture Adult (2) Sent. ko1 10:46 Lactate w/ 2H reflex if indic. Sent. ko1 10:46 Basic Metabolic Panel Sent. ko1 10:46 CBC with Diff Sent. ko1 10:46 LFT's Sent. ko1 10:46 Magnesium Sent. ko1 10:46 NT PRO-BNP Sent. ko1 10:46 PT-INR Sent. ko1 10:46 Troponin HS Sent. ko1 12:23 Blood Culture Adult (2) Sent. ko1 15:28 ETOH Level Sent. ko1 19:26 Johnny Sunshine MD is Hospitalizing Provider. 09/06 08:45 Patient admitted, IV remains in place. db Administered Medications: 09/05 12:23 Drug: Rocephin (cefTRIAXone) 1 grams Route: IV; Rate: calculated rate; Site: left [facility] arm; 14:04 Follow up: Response: No adverse reaction; No change in condition ko1 12:23 Drug: NS 0.9% 1000 ml Route: IV; Rate: 75 ml/hr; Site: left upper arm; ko1 14:04 Follow up: Response: No adverse reaction; IV Status: Completed infusion; IV Intake: ko1 1000ml 19:50 Drug: Ativan (LORazepam) 1 mg Route: IVP; Site: left upper arm; ha1 09/06 07:15 Follow up: Response: No adverse reaction db 09/05 20:34 Not Given (Patient Refused): SEROquel (QUEtiapine) 25 mg PO once ha1 Medication: 10:48 VIS not applicable for this client. ko1 Intake: 14:04 IV: 1000ml; Total: 1000ml. ko1 Outcome: 12:59 Discharge ordered by MD. cp 19:26 Decision to Hospitalize by Provider. 09/06 08:44 Admitted to Tele db Condition: stable Instructed on the need for admit. 13:13 Patient left the ED. db Signatures: Dispatcher [employer] EDMS Andrzej Patel PA PA cp Leal, Jahala RN RN jl7 Jazz Proctor RN RN 1 Mary Lou Terrell RN RN ko1 Chandra, Noemi, RN RN db
--- NOTE | 2022-09-05 13:00 | EDPHYS ---
Physician Documentation [facility] Name: Jose Elias Lunsford Age: 76 yrs Sex: Male : 1945 Arrival Date: 09/05/2022 Time: 09:47 Bed 14 Private MD: ED Physician Peterson Brice HPI: 09/05 09:51 This 76 yrs old Male presents to ER via EMS with complaints of Altered Mental Status. cp 09:51 The patient presents with visual hallucinations. Onset: The symptoms/episode cp began/occurred 3 day(s) ago. Possible causes: unknown. Associated signs and symptoms: Pertinent negatives: abdominal pain, chest pain, confusion, fever. Patient's baseline: Neuro: alert and fully oriented, Motor: no deficits, Ambulation: unable to walk, uses wheelchair, able to assist with transferring , Speech: normal. Historical: - Allergies: 09:51 No Known Allergies; ko1 - Home Meds: 09:51 apixaban Oral [Active]; Dexamethasone Oral [Active]; fluconazole Oral [Active]; ko1 loperamide Oral [Active]; Melatonin Oral [Active]; Nystatin Oral [Active]; Naproxen Oral [Active]; OMEGA-2 [Active]; IRON,C4 [Active]; Ondansetron Oral [Active]; Prednisolone Oral [Active]; sennosides Oral [Active]; Triamterene-Hydrochlorothiazid Oral [Active]; - PMHx: 09:51 colon CA with chemo; ibs; ko1 - PSHx: 09:51 colon resection; ko1 - Immunization history:: Adult Immunizations unknown. - Social history:: Smoking status: Patient denies any tobacco usage or history of. ROS: 09:55 Constitutional: Negative for fever. cp 09:55 Eyes: Negative for injury, pain, redness, and discharge. cp 09:55 ENT: Negative for drainage from ear(s), ear pain, sore throat, difficulty swallowing, difficulty handling secretions. 09:55 Cardiovascular: Negative for chest pain. 09:55 Respiratory: Negative for cough, shortness of breath, wheezing. 09:55 Abdomen/GI: Negative for abdominal pain, vomiting, diarrhea, constipation. 09:55 Neuro: Negative for headache, weakness. 09:55 Psych: Positive for visual hallucinations. 09:55 All other systems are negative. Exam: 10:00 Constitutional: The patient appears in no acute distress, alert, awake, cp non-diaphoretic, non-toxic, well developed, well nourished, obese. 10:00 Head/Face: Normocephalic, atraumatic. cp 10:00 Eyes: Periorbital structures: appear normal, Pupils: equal, round, and reactive to light and accomodation, Extraocular movements: intact throughout, Conjunctiva: normal, no exudate, no injection, Sclera: no appreciated abnormality, Lids and lashes: appear normal, bilaterally. 10:00 ENT: External ear(s): are unremarkable, Nose: is normal, Mouth: Lips: dry, Oral mucosa: dry, Posterior pharynx: Airway: no evidence of obstruction, patent, Tonsils: no enlargement, no erythema, no exudate, erythema, is not appreciated, exudate, is not appreciated. 10:00 Neck: ROM/movement: is normal, is supple, without pain, no range of motions limitations, no meningismus. 10:00 Chest/axilla: Inspection: normal, Palpation: is normal, no crepitus, no tenderness. 10:00 Cardiovascular: Rate: normal, Rhythm: regular, Edema: ankle edema, that is mild, JVD: is not appreciated. 10:00 Respiratory: the patient does not display signs of respiratory distress, Respirations: normal, no use of accessory muscles, no retractions, labored breathing, is not present, Breath sounds: decreased breath sounds, that are mild, throughout, stridor, is not appreciated, wheezing: is not appreciated. 10:00 Abdomen/GI: Inspection: obese Bowel sounds: active, all quadrants, Palpation: abdomen is soft and non-tender, in all quadrants. 10:00 Back: pain, is absent. 10:00 Skin: cellulitis, is not appreciated. 10:00 Neuro: Orientation: to person, place, time, situation, Mentation: able to follow commands, Motor: moves all fours, strength is normal, Sensation: is normal. Vital Signs: 09:48 BP 117 / 85; Pulse 93; Resp 18; Temp 98.8(O); Pulse Ox 95% on R/A; Weight 122.47 kg ko1 (R); Height 6 ft. 0 in. (182.88 cm) (R); Pain 0/10; 10:48 BP 129 / 64; Pulse 98; Resp 18; Pulse Ox 96% on R/A; ko1 11:20 BP 120 / 71; Pulse 103; Pulse Ox 99% on R/A; ko1 14:48 BP 100 / 58; ko1 15:42 BP 126 / 59; Pulse 98; Resp 16; Pulse Ox 99% on R/A; ko1 17:25 BP 104 / 61; Pulse 97; Pulse Ox 99% on R/A; ko1 12 03:05 BP 112 / 63; Pulse 103; Resp 19 S; Pulse Ox 93% on R/A; ha1 09/05 09:48 Body Mass Index 36.62 (122.47 kg, 182.88 cm) ko1 MDM: 09/05 09:50 Patient medically screened. cp 12:06 Physician consultation: Jl Padilla was called at 12:05, was contacted at 12:05, cp regarding admission, to the telemetry unit. consult, patient's condition, reports patient may be discharged to home with oral antibiotics. 14:30 ED course: Patient evaluated by DR Padilla in ED and recommendation for [facility] evaluation made. 09/05 09:50 Order name: Basic Metabolic Panel; Complete Time: 11:35 cp 09/05 11:35 Interpretation: Normal except: GLUC 126; CRE 0.53. cp 09/05 09:50 Order name: CBC with Diff; Complete Time: 11:10 09/05 11:11 Interpretation: Normal except: RDW 16.1. cp 09/05 09:50 Order name: LFT's; Complete Time: 11:35 cp 09/05 11:35 Interpretation: Normal except: TP 6.3; ALB 2.3; GLOB 4.0; A/G 0.6. cp 09/05 09:50 Order name: Magnesium; Complete Time: 11:35 cp 09/05 09:50 Order name: NT PRO-BNP; Complete Time: 11:35 cp 09/05 11:35 Interpretation: NT PRO-BNP 825; Reviewed. cp 09/05 09:50 Order name: PT-INR; Complete Time: 11:10 cp 09/05 09:50 Order name: Troponin HS; Complete Time: 11:35 cp 09/05 09:50 Order name: UDS; Complete Time: 10:38 cp 09/05 09:50 Order name: Lactate w/ 2H reflex if indic.; Complete Time: 11:10 09/05 11:11 Interpretation: Reviewed. 09/05 09:51 Order name: Blood Culture Adult (2) 09/05 09:51 Order name: Procalcitonin; Complete Time: 12:07 09/05 10:12 Order name: Urinalysis W/Microscopic; Complete Time: 10:38 EDMS 09/05 10:38 Interpretation: Normal except: [facility] Turbid; UBLD Trace; UPROT TRACE; UESTR 500; UWBC cp >50; URBC 11-20. 09/05 10:25 Order name: COVID-19/FLU A+B; Complete Time: 12:04 09/05 12:04 Interpretation: Reviewed. 09/05 09:50 Order name: XRAY Chest (1 view); Complete Time: 10:38 09/05 10:39 Interpretation: Report review. 09/05 09:50 Order name: CT Head Brain wo Cont; Complete Time: 10:38 09/05 14:51 Order name: ETOH Level; Complete Time: 16:34 em1 09/05 16:34 Interpretation: Reviewed. 09/06 03:23 Order name: CBC with Automated Diff; Complete Time: 03:28 EDWI 09/06 03:53 Order name: Basic Metabolic Panel; Complete Time: 03:55 EDMS 09/06 03:53 Order name: Phosphorus; Complete Time: 03:55 EDMS 09/06 03:53 Order name: Lipid Profile; Complete Time: 03:55 EDMS 09/06 03:53 Order name: Magnesium; Complete Time: 03:55 EDMS 09/06 03:53 Order name: Thyroid Stimulating Hormone; Complete Time: 03:55 EDMS 09/06 06:26 Order name: Gram Stain--Aerobic Bottle EDMS 09/06 10:50 Order name: Gram Stain--Anaerobic Bottle EDWI 09/05 09:50 Order name: EKG; Complete Time: 09:50 09/05 09:50 Order name: Cardiac monitoring; Complete Time: 10:03 09/05 09:50 Order name: EKG - Nurse/Tech; Complete Time: 10:03 09/05 09:50 Order name: IV Saline Lock; Complete Time: 10:03 09/05 09:50 Order name: Labs collected and sent; Complete Time: 10:04 09/05 09:50 Order name: O2 Per Protocol; Complete Time: 10:04 09/05 09:50 Order name: O2 Sat Monitoring; Complete Time: 10:06 09/05 09:50 Order name: Urine Dipstick-Ancillary (obtain specimen); Complete Time: 10:03 09/05 12:07 Order name: PO challenge; Complete Time: 13:27 09/05 12:25 Order name: Diet Regular; Complete Time: 12:26 09/06 08:42 Order name: Diet Heart Healthy; Complete Time: 08:42 mm9 Administered Medications: 12:23 Drug: Rocephin (cefTRIAXone) 1 grams Route: IV; Rate: calculated rate; Site: left upper ko arm; 14:04 Follow up: Response: No adverse reaction; No change in condition ko1 12:23 Drug: NS 0.9% 1000 ml Route: IV; Rate: 75 ml/hr; Site: left upper arm; ko1 14:04 Follow up: Response: No adverse reaction; IV Status: Completed infusion; IV Intake: ko1 1000ml 19:50 Drug: Ativan (LORazepam) 1 mg Route: IVP; Site: left upper arm; ha1 09/06 07:15 Follow up: Response: No adverse reaction 09/05 20:34 Not Given (Patient Refused): SEROquel (QUEtiapine) 25 mg PO once ha1 Disposition Summary: 09/05/22 19:26 Hospitalization Ordered Hospitalization Status: Inpatient Admission cp Provider: Johnny Sunshine cp Condition: Fair(09/05/22 19:26) cp Problem: new(09/05/22 19:26) cp Symptoms: are unchanged(09/05/22 19:26) cp Bed/Room Type: Standard cp Location: Telemetry/MedSurg (Inpatient)(09/06/22 12:35) jl7 Room Assignment: [facility](09/06/22 12:35) jl7 Diagnosis - UTI/ Urinary tract infection, site not specified(09/05/22 19:26) cp - Visual hallucinations(09/05/22 19:26) cp Forms: - Medication Reconciliation Form cp - SBAR form cp Signatures: Dispatcher [employer] EDMS Abdul, Annabel, RN RN mw Andrzej Patel PA PA cp Love Gomez, RN RN jl7 Jazz Proctor, RN RN ha1 Mary Lou Terrell, RN RN ko1 Gin Diehl, PA-C PA-C [id number] Noemi Chandra RN db Corrections: (The following items were deleted from the chart) 10:12 09:50 UA MICROSCOPIC+U.LAB.BRZ ordered. EDMS EDMS 16:18 12:59 Home cp cp 16:18 12:59 new cp cp 16:18 12:59 have improved cp cp 16:18 12:59 Stable cp cp 16:18 12:59 UTI/ Urinary tract infection, site not specified cp cp 16:18 12:59 Visual hallucinations cp cp 19:30 19:26 Telemetry/MedSurg (Inpatient) cp 19:30 19:26 cp 09/06 12:35 1215 19:30 [facility] ER HOLD mw jl7 09/06 12:35 09/05 19:30 ERHOLD- mw jl7 09/07 00:05 09/05 09:51 Patient's baseline: Neuro: alert and fully oriented, Motor: no deficits, cp Ambulation: unable to walk, is bedridden, Speech: normal, cp
--- NOTE | 2022-09-05 19:35 | P.HP ---
Certification for Inpatient Patient admitted to: Observation With expected LOS: <2 Midnights Patient will require the following post-hospital care: None Practitioner: I am a practitioner with admitting privileges, knowledge of patient current condition, hospital course, and medical plan of care. Services: Services provided to patient in accordance with Admission requirements found in Title 42 Section 412.3 of the Code of Federal Regulations Patient History Date of Service: 09/05/22 Reason for admission: UTI, COVID, AMS History of Present Illness: Patient is a 76 year old male with past medical history of insulin dependent type 2 diabetes and colon cancer who presented to the ED via EMS with complaints of hallucinations. Patient is bedbound, lives at home alone, and has home health that comes twice a day. Patient has apparenrlt been experiencing visual hallucinations for the past 2 days, appears he is speaking with his . He was found to be covid positive and have a UTI. Head CT is negative. No significant lab abnormalities. He is alert and oriented x 4 but still speaking to himself. [facility] evaluated patient and did not think he was a psychiatric candidate given that his hallucinations are not telling him to hurt himself or others. ED provider wishes to admit patient for further management. Allergies No Known Allergies Allergy (Unverified 04/26/13 14:49) Home medications list reviewed: Yes Home Medications: Fluconazole [Diflucan] 200 mg PO DAILY #10 mg 05/14/22 Hydrocodone 7.5/APAP 325 [[place] 7.5/325 mg*] 1 tab PO Q4HP PRN #30 tab 05/14/22 Nystatin Powder [Mycostatin (Powder)*] 1 appl TOP BID #1 btl 05/14/22 dexAMETHasone [Dexamethasone] 4 mg PO BIDWM #60 mg 05/14/22 Furosemide [Lasix 40 MG INJ*] 40 mg IV DAILY vial 05/22/22 Insulin -Regular Human [Novolin -R*] See Protocol SQ Q6HR ml 05/22/22 - Past Medical/Surgical History Diabetic: No -: Stage 2 Colon cancer on chemo -: Insulin Dependent Type 2 Diabetes -: right ankle 1988 -: Bowel Resection -: Exploratory lap -: Diaz Cath insertion -: Cholecystectomy Psychosocial/ Personal History: Patient lives at home alone. He has home health. - Social History Smoking Status: Never smoker Alcohol use: No CD- Drugs: No Caffeine use: Yes Place of Residence: Home Review of Systems General: Other (Hallucinations) Physical Examination - Vital Signs Temperature: 98.8 F Blood Pressure: 104/61 Pulse: 97 Respirations: 16 Pulse Ox (%): 99 (room air) - Physical Exam General: Alert, In no apparent distress, Oriented x3 HEENT: Atraumatic, PERRLA, EOMI, Sclerae nonicteric Neck: Supple, 2+ carotid pulse no bruit, No LAD, Without JVD or thyroid abnormality Respiratory: Clear to auscultation bilaterally, Normal air movement Cardiovascular: Regular rate/rhythm, Normal S1 S2 Gastrointestinal: Normal bowel sounds, No tenderness Musculoskeletal: No tenderness Integumentary: No rashes Neurological: Sensation intact, Abnormal affect - Studies Laboratory Data (last 24 hrs) 09/05/22 10:30: PT 12.1, INR 1.10 09/05/22 10:30: WBC 10.60, Hgb 13.6, Hct 41.6, Plt Count 402 09/05/22 10:30: Sodium 137, Potassium 4.3, BUN 10, Creatinine 0.53 L, Glucose 126 H, Magnesium 2.1, Total Bilirubin 0.3, AST 22, ALT 22, Alkaline Phosphatase 78 Assessment and Plan - Problems (Diagnosis) (1) UTI (urinary tract infection) Current Visit: Yes Status: Acute Qualifiers: Urinary tract infection type: acute cystitis Hematuria presence: with hematuria Qualified Code(s): N30.01 - Acute cystitis with hematuria (2) COVID-19 Current Visit: Yes Status: Acute (3) Hallucinations Current Visit: Yes Status: Acute (4) Type 2 diabetes mellitus Current Visit: Yes Status: Chronic Qualifiers: Diabetes mellitus senior living insulin use: with adjunct faculty for medical terminology use Diabetes mellitus complication status: with hyperglycemia Qualified Code(s): E11.65 - Type 2 diabetes mellitus with hyperglycemia; Z79.4 - nursing home (current) use of insulin - Plan Will admit patient for observation. Treat UTI with ceftriaxone. Follow urine culture. Hallucinations likely secondary to a combination of UTI and COVID. Isolation precautions in place. Monitor pulse ox. Vitamin C and Zinc daily. Lipid panel, TSH, and A1c ordered for the morning. Haldol as needed for agitation. Case management consult. [facility] accu checks with mild sliding scale and diabetic diet. Monitor and replete electrolytes per protocol. Reconcile and continue home medications. Lovenox for VTE prophylaxis. Full code. Discharge Plan: Home Plan to discharge in: 24 Hours - Advance Directives Does patient have a Living Will: No Does patient have a Durable POA for Healthcare: No - Code Status/Comfort Care Code Status Assessed: Yes Code Status: Full Code Physician Review: Patient Assessed, Agree with Above Assessment and Plan Critical Care: No Time Spent Managing Pts Care (In Minutes): 50
[2022-09-05] MEDS ORDERED: LORazepam 2 MG/ML VIAL ONE (19:44)
[2022-09-05] MEDS ORDERED: QUETIAPINE 25 MG TAB ONE (20:08)
[2022-09-05] MEDS ORDERED: ONDANSETRON 4 MG/2 ML VIAL IV PRN (22:25)
[2022-09-05] MEDS ORDERED: HALOPERIDOL LACT 5 MG/ML INJ IV PRN (22:25)
[2022-09-05] MEDS ORDERED: ACETAMINOPHEN 500 MG TAB PO PRN (22:25)
[2022-09-05] MEDS: NA CHLORIDE 0.9% 1,000 ML IV SCH (22:55)
[2022-09-06] MEDS ORDERED: NA CHLORIDE 0.9% 1,000 ML ONE (00:20)
[2022-09-06 03:22] LABS: Absolute Lymphocytes (CBC) 3.1 K/uL (0.7-4.9); Hematocrit 38.6 % (39.6-49.0); Lymphocytes % 26.5 % (15.3-44.8); MCV 92.3 fL (80-100); MPV 8.3 fL (7.6-11.3); RBC Red Blood Cell Count 4.18 M/uL (4.33-5.43)
[2022-09-06 03:53] LABS: Magnesium 2.1 mg/dL (1.6-2.4); Phosphorus 5.1 mg/dL (2.5-4.9); Potassium 3.8 mmol/L (3.5-5.1); Thyroid Stimulating Hormone 2.62 uIU/mL (0.358-3.740)
[2022-09-06] MEDS ORDERED: INFLUENZA VACCINE (for 6+ mo) 0.5 ML DOSE IMVAC ONE (08:00)
[2022-09-06] MEDS ORDERED: PNEUMOCOCCAL VACCINE 0.5 ML IMVAC ONE (08:00)
[2022-09-06] MEDS: ZINC SULFATE 220 MG CAP PO SCH (09:00)
[2022-09-06] MEDS: ASCORBIC ACID 500 MG TABLET PO SCH (09:00)
[2022-09-06 09:30] VITALS: O2SAT 93
[2022-09-06] MEDS ORDERED: POTASSIUM CL SA 10 MEQ TAB PO ONE ×2 (09:54→10:00)
[2022-09-06] MEDS ORDERED: ZINC SULFATE 220 MG CAP ONE (09:54)
[2022-09-06] MEDS ORDERED: ASCORBIC ACID 500 MG TABLET ONE (09:54)
[2022-09-06] MEDS ORDERED: CEFTRIAXONE 1000 MG/VIAL ONE (09:55)
[2022-09-06] MEDS ORDERED: NA CHLORIDE 0.9% 50 ML IV ONE (09:57)
[2022-09-06] MEDS: CEFTRIAXONE 1,000 MG in NA CHLORIDE 0.9% 50 ML IVPB SCH (11:00)
[2022-09-06] MEDS: NA CHLORIDE 0.9% 1,000 ML IV SCH ×2 (11:45→17:38)
--- NOTE | 2022-09-06 12:55 | EKG ---
Test Date: 2022-09-05 Test Time: 10:27:11 Real Estate Management Specialist: SURINDER MEASUREMENT RESULTS: Intervals: Rate: 94 NV: 150 QRSD: 104 QT: 372 QTc: 465 [place]: P: 38 NV: 150 QRS: -61 T: 69 INTERPRETIVE STATEMENTS: Normal sinus rhythm Left anterior fascicular block Abnormal ECG Compared to ECG 09/05/2022 10:24:56 No significant changes Electronically Signed On 09-06-22 12:52:16 HOT REPAIRMAN by Dinesh Humphreys
[2022-09-06 17:11] LABS: Potassium 3.6 mmol/L (3.5-5.1)
--- NOTE | 2022-09-07 01:10 | P.PN ---
Date of Service: 09/06/22 Subjective Patient is feeling better. He does want to go to a nursing facility and wants to go home. Adult protective service was notified blood. Apparently patient has caregivers at his house. Arrange for discharge over the next 48 hours home with caregivers. patient normally gets around with a wheelchair. He does not walk. He transfers to a wheelchair and has caretakers care for him. Physical Examination - Vital Signs Reviewed - Physical Exam General: Alert, In no apparent distress, Oriented x3 Respiratory: Clear to auscultation bilaterally, Normal air movement Cardiovascular: Regular rate/rhythm, Normal S1 S2 Gastrointestinal: Normal bowel sounds, No tenderness Neurological: Sensation intact, Abnormal affect Assessment and Plan - Problems (Diagnosis) (1) UTI (urinary tract infection) Current Visit: Yes Status: Acute Qualifiers: Urinary tract infection type: acute cystitis Hematuria presence: with hematuria Qualified Code(s): N30.01 - Acute cystitis with hematuria (2) COVID-19 Current Visit: Yes Status: Acute (3) Hallucinations Current Visit: Yes Status: Acute (4) Type 2 diabetes mellitus Current Visit: Yes Status: Chronic Qualifiers: Diabetes mellitus exterminator insulin use: with usp use Diabetes mellitus complication status: with hyperglycemia Qualified Code(s): E11.65 - Type 2 diabetes mellitus with hyperglycemia; Z79.4 - prison (current) use of insulin - Plan 1. Continue with IV antibiotics 2. Continue with gentle hydration 3. physical therapy for assistance with transfer 4. Strict blood pressure and blood sugar control 5. Gi DVT prophylaxis
[2022-09-07 04:56] LABS: Absolute Lymphocytes (CBC) 2.8 K/uL (0.7-4.9); Hematocrit 34.9 % (39.6-49.0); Lymphocytes % 34.8 % (15.3-44.8); MCV 92.9 fL (80-100); MPV 8.1 fL (7.6-11.3); RBC Red Blood Cell Count 3.76 M/uL (4.33-5.43)
[2022-09-07 05:08] LABS: Magnesium 2.1 mg/dL (1.6-2.4); Potassium 3.7 mmol/L (3.5-5.1)
[2022-09-07] MEDS ORDERED: POTASSIUM CL SA 10 MEQ TAB PO ONE (09:00)
[2022-09-07] MEDS: ZINC SULFATE 220 MG CAP PO SCH (09:00)
[2022-09-07] MEDS: ASCORBIC ACID 500 MG TABLET PO SCH (09:34)
[2022-09-07] MEDS: CEFTRIAXONE 1,000 MG in NA CHLORIDE 0.9% 50 ML IVPB SCH (09:34)
[2022-09-07] MEDS: NA CHLORIDE 0.9% 1,000 ML IV SCH ×2 (09:34→21:18)
[2022-09-07 20:49] VITALS: BMI 42.3
--- NOTE | 2022-09-07 23:18 | P.PN ---
Date of Service: 09/07/22 Subjective Patient is improving. Electrical Sign Wirer have been notified that patient should be able to discharge in the morning as long as he continues to improve. Monitor for fevers and will monitor his heart rate did well. Anticipate discharge tomorrow. Physical Examination - Vital Signs Reviewed - Physical Exam General: Alert, In no apparent distress, Oriented x3 Respiratory: Clear to auscultation bilaterally, Normal air movement Cardiovascular: Regular rate/rhythm, Normal S1 S2 Gastrointestinal: Normal bowel sounds, No tenderness Neurological: Sensation intact, Abnormal affect Assessment and Plan - Problems (Diagnosis) (1) UTI (urinary tract infection) Current Visit: Yes Status: Acute Qualifiers: Urinary tract infection type: acute cystitis Hematuria presence: with hematuria Qualified Code(s): N30.01 - Acute cystitis with hematuria (2) COVID-19 Current Visit: Yes Status: Acute (3) Hallucinations Current Visit: Yes Status: Acute (4) Type 2 diabetes mellitus Current Visit: Yes Status: Chronic Qualifiers: Diabetes mellitus terminal carman insulin use: with terminal carman use Diabetes mellitus complication status: with hyperglycemia Qualified Code(s): E11.65 - Type 2 diabetes mellitus with hyperglycemia; Z79.4 - snf (current) use of insulin - Plan Continue with plan of care as mentioned below: 1. Continue with IV antibiotics 2. Continue with gentle hydration 3. Physical therapy for assistance with transfer 4. Strict blood pressure and blood sugar control 5. Arrange for DC in AM 6. Gi DVT prophylaxis
[2022-09-08 05:26] LABS: Absolute Lymphocytes (CBC) 2.8 K/uL (0.7-4.9); Hematocrit 34.9 % (39.6-49.0); Lymphocytes % 34.3 % (15.3-44.8); MCV 92.1 fL (80-100); MPV 8.2 fL (7.6-11.3); RBC Red Blood Cell Count 3.79 M/uL (4.33-5.43)
[2022-09-08 05:41] LABS: Magnesium 2.1 mg/dL (1.6-2.4); Phosphorus 3.2 mg/dL (2.5-4.9); Potassium 3.9 mmol/L (3.5-5.1)
--- NOTE | 2022-09-08 07:34 | RAD REPORT ---
EXAM DESCRIPTION: RAD - Chest Single View - 09/08/2022 5:56 am CLINICAL HISTORY: pneumonia COMPARISON: Portable September 05 TECHNIQUE: AP portable chest image was obtained 09/08/2022 5:56 am supine position. FINDINGS: Lung volumes are low. Low lung volume, portable technique, supine position and body habitu s affects all accentuate the heart, vasculature and lung markings. No focal consolidations seen. Retrocardiac and posterior lung base assessment is most limited on this examination. Mild interstitial infiltrates or edema could be present. Heart and vasculature are normal. No measurable pleural effusion and no pneumothorax. No acute bony abnormality seen. No acute aortic findings suspected. IMPRESSION: No new or progressive finding from comparison study. Exam limitations noted above could mask a mild interstitial edema or infiltrate in the lower lung fie lds.
[2022-09-08] MEDS ORDERED: CEFTRIAXONE 1000 MG/VIAL ONE (07:35)
[2022-09-08] MEDS ORDERED: NA CHLORIDE 0.9% 50 ML IV ONE (08:04)
[2022-09-08] MEDS: ZINC SULFATE 220 MG CAP PO SCH (08:05)
[2022-09-08] MEDS: ASCORBIC ACID 500 MG TABLET PO SCH (08:05)
[2022-09-08] MEDS: CEFTRIAXONE 1,000 MG in NA CHLORIDE 0.9% 50 ML IVPB SCH (08:05)
[2022-09-08 08:41] VITALS: BP 133/65; TEMP 97.2
[2022-09-08] MEDS ORDERED: POTASSIUM CL SA 10 MEQ TAB PO ONE (09:00)
--- NOTE | 2022-09-14 21:21 | P.DS ---
Discharge Date: 09/08/22 Disposition: ROUTINE DISCHARGE Discharge Condition: GOOD Reason for Admission: UTI, COVID, AMS Brief History of Present Illness: Patient is a 76 year old male with past medical history of insulin dependent type 2 diabetes and colon cancer who presented to the ED via EMS with complaints of hallucinations. Patient is bedbound, lives at home alone, and has home health that comes twice a day. Patient has apparenrlt been experiencing visual hallucinations for the past 2 days, appears he is speaking with his . He was found to be covid positive and have a UTI. Head CT is negative. No significant lab abnormalities. He is alert and oriented x 4 but still speaking to himself. [facility] evaluated patient and did not think he was a psychiatric candidate given that his hallucinations are not telling him to hurt himself or others. ED provider wishes to admit patient for further management. Hospital Course: Patient has done well during hospital stay. Clinically, patient is much better. At this time, patient is stable for discharge home. Patient will follow-up with PCP as an outpatient. We have arranged for patient to discharge once we have made arrangements with the caretakers. They help patient transfer to his wheelchair which is what he uses to get around. At this time, patient is clinically doing well and patient is stable for discharge home. Vital Signs/Physical Exam: Temp Pulse Resp BP Pulse Ox 97.2 F 93 H 20 133/65 93 09/08/22 08:00 09/08/22 08:00 09/08/22 08:00 09/08/22 08:00 09/08/22 08:00 General: Alert, In no apparent distress, Oriented x3 Laboratory Data at Discharge: WBC 8.10 K/uL (4.3-10.9) 09/08/22 04:55 Hgb 11.4 g/dL (13.6-17.9) L 09/08/22 04:55 Hct 34.9 % (39.6-49.0) L 09/08/22 04:55 Plt Count 329 K/uL (152-406) 09/08/22 04:55 PT 12.1 SECONDS (9.5-12.5) 09/05/22 10:30 INR 1.10 09/05/22 10:30 Sodium Cancelled 09/08/22 06:00 Potassium Cancelled 09/08/22 06:00 BUN Cancelled 09/08/22 06:00 Creatinine Cancelled 09/08/22 06:00 Glucose Cancelled 09/08/22 06:00 Phosphorus 3.2 mg/dL (2.5-4.9) 09/08/22 04:55 Magnesium 2.1 mg/dL (1.6-2.4) 09/08/22 04:55 Total Bilirubin 0.3 mg/dL (0.2-1.0) 09/05/22 10:30 AST 22 U/L (15-37) 09/05/22 10:30 ALT 22 U/L (16-61) 09/05/22 10:30 Alkaline Phosphatase 78 U/L (45-117) 09/05/22 10:30 Triglycerides 139 mg/dL (<150) 09/06/22 02:49 Cholesterol 169 mg/dL (<200) 09/06/22 02:49 HDL Cholesterol 49 mg/dL (40-60) 09/06/22 02:49 Cholesterol/HDL Ratio 3.45 09/06/22 02:49 Home Medications: Fluconazole [Diflucan] 200 mg PO DAILY #10 mg 05/14/22 Hydrocodone 7.5/APAP 325 [[place] 7.5/325 mg*] 1 tab PO Q4HP PRN #30 tab 05/14/22 Nystatin Powder [Mycostatin (Powder)*] 1 appl TOP BID #1 btl 05/14/22 Furosemide [Lasix 40 MG INJ*] 40 mg IV DAILY vial 05/22/22 Insulin -Regular Human [Novolin -R*] See Protocol SQ Q6HR ml 05/22/22 Albuterol Inhaler [Ventolin Inhaler*] 2 puff IH Q6H PRN #1 inh 09/08/22 Azithromycin Tab [Zithromax*] 250 mg PO ZPAK #1 pankaj 09/08/22 Benzonatate [Tessalon Perle] 100 mg PO TID #30 cap 09/08/22 Cefdinir [Cefdinir*] 300 mg PO BID #14 cap 09/08/22 Zinc Sulfate [Zinc Sulfate*] 220 mg PO DAILY #30 cap 09/08/22 predniSONE [Deltasone] 20 mg PO DAILY #5 tab 09/08/22 New Medications: Cefdinir [Cefdinir*] 300 mg PO BID #14 cap predniSONE [Deltasone] 20 mg PO DAILY #5 tab Benzonatate [Tessalon Perle] 100 mg PO TID #30 cap Albuterol Inhaler [Ventolin Inhaler*] 2 puff IH Q6H PRN #1 inh PRN Reason: Shortness Of Breath Zinc Sulfate [Zinc Sulfate*] 220 mg PO DAILY #30 cap Azithromycin Tab [Zithromax*] 250 mg PO ZPAK #1 pankaj Physician Discharge Instructions: -DC IV and DC home -Follow-up with PCP in 1 to 2 weeks -Follow-up with Pulmonary in 1 to 2 weeks -Please call Dr. Sunshine at [phone] if any questions regarding hospital stay -Please call nursing station at [phone] if any nursing or medication questions -Return to the emergency room if symptoms worsen Diet: AHA Activity: Fall precautions Followup: Robby Langston MD [ACTIVE - CAN ADMIT] - 1-2 Weeks (call to schedule an appointment) Unknown,U [Primary Care Provider] - 1-2 Weeks (call to schedule an appointment) Time spent managing pt's care (in minutes): 35
== END 2022-09-08 11:45 | disposition home or self-care (01) | DRG 689 ==
LOC: ER 09:33 → ERHOLD 19:29 → 4TH 09-06 13:01 → OBSVTOIN 09-06 13:48 → 4TH 09-06 22:04
PROVIDERS: ADMIT Hospitalist; ATTEND Hospitalist
DX: N30.01 Acute cystitis with hematuria (principal); U07.1 COVID-19; E11.65 Type 2 diabetes mellitus with hyperglycemia; Z60.2 Problems related to living alone; Z79.4 Long term (current) use of insulin; Z92.21 Personal history of antineoplastic chemotherapy; Z74.01 Bed confinement status; Z79.52 Long term (current) use of systemic steroids; Z90.49 Acquired absence of other specified parts of digestive tract; Z85.038 Personal history of other malignant neoplasm of large intestine; Z79.899 Other long term (current) drug therapy
CPT/HCPCS: 0240U; 36415; 70450; 71045; 80048; 80061; 80076; 80307; 80320; 81001; 83605; 83735; 83880; 84100; 84145; 84443; 84484; 85025; 85610; 87040; 87086; 87088; 87205; 93005; 96361; 96374; 96375; 99285; G0378; J7030

== ENCOUNTER 2025-04-14 10:40 | Inpatient (IN) | payer OTHER ==
--- OUTSIDE RECORDS SUMMARY | 2025-04-14 10:42 | XMS REPORT | Continuity of Care Document ---
Author Name Unknown Address [address] [place] [address] Organization [facility] Address [address] [place] [address] Care Team Providers Care Business Planning Analyst Name Role Phone Bethel Waddell Attending Clinician Ariel epstein KNOW, DOES_NOT Admitting Clinician Unavailable Payers Payer Name Policy Type Policy Number Effective Date Expirati on Date Source Encounters Start Date/Time End Date/Time Encounter Type Admission Type Attending Clinicians Care Facility Care Department Encounter ID Source 2024-01-31 13:07:00 2024-01-31 13:07:00 Outpatient Bethel Toure [facility] [id number] 09 [facility]
[2025-04-14 11:32] LABS: Absolute Lymphocytes (CBC) 2.7 K/uL (0.7-4.9); Hematocrit 44.9 % (39.6-49.0); Hemoglobin 14.7 g/dL (13.6-17.9); MCH 30.0 pg (27.0-35.0); MCHC 32.8 g/dL (32.0-36.0); MCV 91.4 fL (80-100); MPV 9.2 fL (7.6-11.3); Nucleated RBC Absolute Count 0.0 (0-0); Nucleated Red Blood Cells % 0.1 % (0-0); RBC Red Blood Cell Count 4.92 M/uL (4.33-5.43); White Blood Count 9.90 thou/uL (4.3-10.9)
[2025-04-14 11:37] LABS: PCO2, Venous Blood Gas 63 mmHg (41-51); PH, Venous Blood Gas 7.42 (7.32-7.42); PO2, Venous Blood Gas 133 mmHg (25-40)
[2025-04-14 11:38] LABS: Base Excess, VBG 16.4 mmol/L (-2.0-3.0); O2 Saturation, VBG 99.1 % (40.0-70.0)
[2025-04-14 11:41] LABS: HCO3, Venous Blood Gas 40.9 mmol/L (21.0-29.0)
[2025-04-14 11:42] LABS: PT Prothrombin Time 14.3 SECONDS (10-13.0); PTT, Activated Partial Thromb 32.5 SECONDS (27.2-37.4); Protime INR 1.27
[2025-04-14 11:51] LABS: D-Dimer < 0.215 FEUug/mL (0-0.500)
[2025-04-14 11:55] LABS: ALT/SGPT < 14 U/L (16-61); AST/SGOT 12 U/L (15-37); Albumin 2.7 g/dL (3.4-5.0); Albumin/Globulin Ratio 0.7 (1.1-1.8); Alkaline Phosphatase 76 U/L (45-117); Anion Gap 4.9 mEq/L (5.0-15.0); BUN Blood Urea Nitrogen 11 mg/dL (7-18); Bilirubin Indirect, Calculated 0.3 mg/dL (0.2-0.8); Globulin 4.0 g/dL (2.3-3.5); Glucose Level 121 mg/dL (74-106); Lipase 16 U/L (13-75); Magnesium 2.0 mg/dL (1.6-2.4); NT PRO-BNP 593 pg/mL (<450); Potassium 3.9 mEq/L (3.5-5.1); Troponin High Sensitivity 15.1 pg/mL (<58.9)
[2025-04-14 12:04] LABS: Influenza A Ag Negative; Influenza B Ag Negative; SARS-CoV-2 Antigen Rapid Res Negative (Negative)
--- NOTE | 2025-04-14 12:20 | RAD REPORT ---
Procedure: Chest Single View HISTORY: sob COMPARISON: 2022 FINDINGS: Mild right upper lobe opacities Remainder lungs appear clear of acute infiltrate.. No significant pleural effusion noted. The heart is mildly enlarged. IMPRESSION: Mild right upper lobe opacities may indicate pneumonitis/atypical pneumonia
--- NOTE | 2025-04-14 12:37 | EDPHYS ---
Physician Documentation [facility] Name: Jose Elias Lunsford Age: 79 yrs Sex: Male : 1945 Arrival Date: 04/14/2025 Time: 10:40 Bed 2 Private MD: ED Physician Epifanio Miranda HPI: 04/14 11:19 Chief Complaint: Shortness of breath and low oxygenation. History of Present Illness: [id number] The patient is experiencing progressive shortness of breath and low oxygenation, with an O2 saturation of 85% on room air. These symptoms have been ongoing for the past few months, but have not worsened today compared to previous days. The patient resides in a semi-nursing facility and was brought in by a caregiver. He has a history of COPD and a past embolism in lung , for which he received treatment and is currently on blood thinners. He has a history of smoking for several decades but has since quit. There is no history of blood in phlegm or abdominal pain. The patient also reports spasms affecting mobility, particularly in R leg. The caregiver decided to seek medical attention today without a specific trigger. Review of Systems: - Respiratory: Positive for shortness of breath and wheezing. - Cardiovascular: History of embolism and heart failure. - Musculoskeletal: Reports spasms affecting mobility. - General: No reports of recent deterioration or new symptoms. ROS otherwise negative. . Historical: - Allergies: 10:48 No Known Allergies; ph - PMHx: 10:48 Anxiety; colon CA with chemo; depressive disorder; Hypertensive disorder; ibs; ph - PSHx: 10:48 colon resection; ph - Immunization history:: Adult Immunizations unknown. - Infectious Disease History:: Denies. - Social history:: Smoking status: Patient/guardian denies using tobacco, but has a distant history of tobacco abuse. Exam: 11:19 Constitutional: appears chronically ill in mild distress Eyes: Extra-ocular motions jr11 intact. Lids and lashes normal. Conjunctiva and sclera are non-icteric and not injected. Cornea within normal limits. Periorbital areas with no swelling, redness, or edema. ENT: Nares patent. No nasal discharge, no septal abnormalities noted. Oropharynx with no redness, swelling, or masses, exudates, or evidence of obstruction, uvula midline. Mucous membranes moist. Cardiovascular: tachy Respiratory: mild distress diffusely wheezing, diminished Skin: Warm, dry with normal turgor. Normal color with no rashes, no lesions, and no evidence of cellulitis. MS/ Extremity: edema bilat LE Neuro: Awake and alert, GCS 15, oriented to person, place, time, and situation. No gross motor or sensory deficits. Vital Signs: 10:47 BP 125 / 94; Pulse 98; Resp 18; Temp 98; Pulse Ox 98% on Nebulizer Mask; Weight 124.74 ph kg; Height 6 ft. 0 in. ; 12:00 BP 146 / 71; Pulse 96; Resp 15; Pulse Ox 94% ; bp 13:00 BP 131 / 72; Pulse 94; Resp 20; Temp 97.8; Pulse Ox 94% on 3 lpm NC; ph 14:00 BP 160 / 81; Pulse 94; Resp 20; Pulse Ox 92% ; bp 14:54 BP 148 / 78; Pulse 95; Resp 20; Pulse Ox 95% on 3 lpm NC; ph 10:47 Body Mass Index 37.30 (124.74 kg, 182.88 cm) ph MDM: 10:55 Medical Screening Exam initiated jr11 11:19 Differential diagnosis: Medical Decision Makin. COPD exacerbation: Likely due to jr11 history of COPD and past smoking, presenting with wheezing and low O2 saturation. 2. Heart failure: Possible due to history and current use of furosemide, although vitals are stable. 3. Pulmonary embolism: Less likely since the patient is on blood thinners, but history of embolism is noted. 4. Pneumonia: Less likely given the lack of fever or acute changes, but still a consideration due to respiratory symptoms. Plan: - Administer oxygen therapy and monitor saturation levels. - Provide breathing treatment to alleviate wheezing. - Consider overnight observation to manage oxygen levels. - Review and adjust medications as necessary for COPD and heart failure. - Evaluate for potential pulmonary embolism if symptoms do not improve. 12:35 ED course: Pt to be admitted to Dr Padilla for hypoxia, PNA. 11 13:04 ED course: EKG interpreted by me shows normal sinus rhythm, left axis, normal QRS, EKG jr11 nondiagnostic with a PVC. 04/14 10:56 Order name: BMP; Complete Time: 11:57 jr 04/14 10:56 Order name: Blood Culture Adult (2) jr 04/14 10:56 Order name: CBC with Diff; Complete Time: 11:04/14 10:56 Order name: CPK; Complete Time: :04/14 10:56 Order name: D-Dimer; Complete Time: :04/14 10:56 Order name: Hepatic Function; Complete Time: :04/14 10:56 Order name: Lipase; Complete Time: 11:04/14 10:56 Order name: Magnesium; Complete Time: :04/14 10:56 Order name: NT PRO-BNP; Complete Time: :04/14 10:56 Order name: PT-INR; Complete Time: :04/14 10:56 Order name: Ptt, Activated; Complete Time: 04/14 10:56 Order name: Troponin HS; Complete Time: :04/14 10:56 Order name: Lactate w/ 2H reflex if indic.; Complete Time: :04/14 10:56 Order name: Venous Blood Gas; Complete Time: :04/14 10:58 Order name: COVID-19 Ag + Flu A+B Ag; Complete Time: 12:13 04/14 13:25 Order name: Basic Metabolic Panel EDMS 04/14 13:25 Order name: Basic Metabolic Panel EDMS 04/14 13:25 Order name: Basic Metabolic Panel EDMS 04/14 13:25 Order name: Basic Metabolic Panel EDMS 04/14 13:25 Order name: Basic Metabolic Panel EDMS 04/14 13:25 Order name: Basic Metabolic Panel EDMS 04/14 13:25 Order name: Basic Metabolic Panel EDMS 04/14 13:25 Order name: Basic Metabolic Panel EDMS 04/14 13:25 Order name: CBC with Automated Diff EDMS 04/14 13:25 Order name: CBC with Automated Diff EDMS 04/14 13:25 Order name: CBC with Automated Diff EDMS 04/14 13:25 Order name: CBC with Automated Diff EDMS 04/14 13:25 Order name: CBC with Automated Diff EDMS 04/14 13:25 Order name: CBC with Automated Diff EDMS 04/14 13:25 Order name: CBC with Automated Diff EDMS 04/14 13:25 Order name: CBC with Automated Diff EDMS 04/14 13:25 Order name: Magnesium EDMS 04/14 13:25 Order name: Magnesium EDMS 04/14 13:25 Order name: Magnesium EDMS 04/14 13:25 Order name: Magnesium EDMS 04/14 13:25 Order name: Magnesium EDMS 04/14 13:25 Order name: Magnesium EDMS 04/14 13:25 Order name: Magnesium EDMS 04/14 13:25 Order name: Magnesium EDMS 04/14 13:25 Order name: Phosphorus EDMS 04/14 13:25 Order name: Phosphorus EDMS 04/14 13:25 Order name: Phosphorus EDMS 04/14 13:25 Order name: Phosphorus EDMS 04/14 13:25 Order name: Phosphorus EDMS 04/14 13:25 Order name: Phosphorus EDMS 04/14 13:25 Order name: Phosphorus EDMS 04/14 13:25 Order name: Phosphorus EDMS 04/14 13:25 Order name: Troponin High Sensitivity EDMS 04/14 13:25 Order name: Troponin High Sensitivity EDMS 04/14 13:25 Order name: Troponin High Sensitivity EDMS 04/14 10:56 Order name: XRAY CXR (1 view); Complete Time: 12:21 04/14 10:56 Order name: EKG; Complete Time: 10:57 04/14 10:56 Order name: Cardiac monitoring; Complete Time: 12:48 04/14 10:56 Order name: EKG - Nurse/Tech; Complete Time: 12:48 04/14 10:56 Order name: IV Saline Lock; Complete Time: 11:39 04/14 10:56 Order name: Labs collected and sent; Complete Time: 11:39 04/14 10:56 Order name: O2 Per Protocol; Complete Time: 11:39 04/14 10:56 Order name: O2 Sat Monitoring; Complete Time: 11:39 Administered Medications: 12:00 Drug: Ipratropium Inhalation Aerosol 0.5 mg Inhalation once; Every 20 min for a total ph of 3 treatments x3 Route: Inhalation; 12:30 Drug: Furosemide IVP 40 mg IVP once; give over 2 minutes Route: IVP; Site: right ph antecubital; 12:32 Drug: Albuterol Inhalation 2.5 mg Inhalation every 20 minutes x3 Route: Inhalation; ph 13:10 Drug: Rocephin IV 2 grams IV at calculated rate once; Given slow IV push per pharmarcy ph instructions Route: IV; Rate: calculated rate; Site: right antecubital; 13:40 Follow up: Response: No adverse reaction; IV Status: Completed infusion ph 13:56 Drug: AZITHromycin IVPB 500 mg IVPB once over 1 hrs; (mix in 250 mL NS) Route: IVPB; ph Infused Over: 1 hrs; Site: right antecubital; 14:48 Follow up: Response: No adverse reaction; IV Status: Infusion continued upon admission ph Disposition Summary: 04/14/25 12:36 Hospitalization Ordered Notes: Hospitalization Status: Inpatient Admission jr11 Provider: Jl Padilla jr Location: Telemetry/MedSur (Inpatient) [facility] Condition: Stable jr11 Problem: new jr11 Symptoms: are unchanged jr11 Bed/Room Type: Standard [facility] Room Assignment: 209(04/14/25 13:59) kb3 Diagnosis - Other pneumonia, unspecified organism jr11 - Acute and chronic respiratory failure with hypoxia [facility] Forms: - Medication Reconciliation Form jr11 - SBAR form jr11 - Leadership Thank You Letter jr11 Signatures: Dispatcher [employer] EDSamia Khan RN RN ph Epifanio Miranda MD MD jr11 Alley Lama RN RN kb3 Corrections: (The following items were deleted from the chart) 10:57 10:57 BASIC METABOLIC PANEL+C.LAB.BRZ ordered. EDMS EDMS 10:57 10:57 BLOOD CULTURE*+BA.LAB.BRZ ordered. EDMS EDMS 10:57 10:57 CBC+H.LAB.BRZ ordered. EDMS EDMS 10:57 10:57 CREATINE PHOSPHOKINASE+C.LAB.BRZ ordered. EDMS EDMS 10:57 10:57 D-DIMER+COAG.LAB.BRZ ordered. EDMS EDMS 10:57 10:57 HEPATIC FUNCTION+C.LAB.BRZ ordered. EDMS EDMS 10:57 10:57 LIPASE+C.LAB.BRZ ordered. EDMS EDMS 10:57 10:57 MAGNESIUM+C.LAB.BRZ ordered. EDMS EDMS 10:57 10:57 PROBNP+C.LAB.BRZ ordered. EDMS EDMS 10:57 10:57 PROTIME (+INR)+COAG.LAB.BRZ ordered. EDMS EDMS 10:57 10:57 PTT, ACTIVATED+COAG.LAB.BRZ ordered. EDMS EDMS 10:57 10:57 Troponin High Sensitivity+C.LAB.BRZ ordered. EDMS EDMS 10:57 10:57 LACTATE+C.LAB.BRZ ordered. EDMS EDMS 13:59 12:36 jr11 kb3
--- NOTE | 2025-04-14 12:37 | ER ---
Nurse's Notes [facility] Name: Jose Elias Lunsford Age: 79 yrs Sex: Male : 1945 Arrival Date: 04/14/2025 Time: 10:40 Bed 2 Private MD: Diagnosis: Other pneumonia, unspecified organism;Acute and chronic respiratory failure with hypoxia Presentation: 04/14 10:47 Chief complaint: EMS states: From [facility] facility, c/o congestion, SOB and low ph 02 x 2 months, room air Spo2 85%, other VSS. Coronavirus screen: Vaccine status: Patient reports receiving the 2nd dose of the covid vaccine. Ebola Screen: No symptoms or risks identified at this time. Initial Sepsis Screen: Does the patient meet any 2 criteria? No. Patient's initial sepsis screen is negative. Does the patient have a suspected source of infection? No. Patient's initial sepsis screen is negative. Risk Assessment: Do you want to hurt yourself or someone else? Patient reports no desire to harm self or others. Onset of symptoms was April 14, 2025. 10:47 Method Of Arrival: EMS: [facility] ph 10:47 Acuity: SHANA 3 ph Triage Assessment: 10:49 General: Appears in no apparent distress. Behavior is calm, cooperative. Pain: Denies ph pain. Neuro: Level of Consciousness is awake, alert, obeys commands, Oriented to person, place, time, situation. Cardiovascular: Capillary refill < 3 seconds in bilateral fingers Patient's skin is warm and dry. Respiratory: Reports shortness of breath Onset: The symptoms/episode began/occurred approx 2 months. 14:15 Respiratory: the patient has mild shortness of breath. bp Historical: - Allergies: 10:48 No Known Allergies; ph - PMHx: 10:48 Anxiety; colon CA with chemo; depressive disorder; Hypertensive disorder; ibs; ph - PSHx: 10:48 colon resection; ph - Immunization history:: Adult Immunizations unknown. - Infectious Disease History:: Denies. - Social history:: Smoking status: Patient/guardian denies using tobacco, but has a distant history of tobacco abuse. Screenin:36 [facility] ED Fall Risk Assessment (Adult) History of falling in the last 3 months, ph including since admission Yes- fall prone (multiple falls) (3 pts) Confusion or Disorientation No (0 pts) Intoxicated or Sedated No (0 pts) Impaired Gait Yes (1 pt) Mobility Assist Device Used Yes (1 pt) Altered Elimination Yes (1 pt) Score/Fall Risk Level 3 or more points = High Risk Oriented to surroundings, Maintained a safe environment, Hourly rounding (assess needs \T\ fall precautionary measures) done, Used ambulatory aids as needed (educated on \T\ assisted with). Abuse screen: Denies threats or abuse. Denies injuries from another. Nutritional screening: No deficits noted. Tuberculosis screening: No symptoms or risk factors identified. Assessment: 11:00 Cardiovascular: Rhythm is sinus rhythm. Respiratory: Airway is patent Respiratory bp effort is labored, Breath sounds are coarse bilaterally. 13:00 Reassessment: No changes from previously documented assessment. Patient is alert, bp oriented x 3, equal unlabored respirations, skin warm/dry/pink. 14:00 Reassessment: REPORT SENT FOR 2ND. bp Vital Signs: 10:47 BP 125 / 94; Pulse 98; Resp 18; Temp 98; Pulse Ox 98% on Nebulizer Mask; Weight 124.74 ph kg; Height 6 ft. 0 in. ; 12:00 BP 146 / 71; Pulse 96; Resp 15; Pulse Ox 94% ; bp 13:00 BP 131 / 72; Pulse 94; Resp 20; Temp 97.8; Pulse Ox 94% on 3 lpm NC; ph 14:00 BP 160 / 81; Pulse 94; Resp 20; Pulse Ox 92% ; bp 14:54 BP 148 / 78; Pulse 95; Resp 20; Pulse Ox 95% on 3 lpm NC; ph 10:47 Body Mass Index 37.30 (124.74 kg, 182.88 cm) ph ED Course: 10:47 Patient arrived in ED. ph 10:48 Triage completed. ph 10:50 Arm band placed on Patient placed in an exam room, on a stretcher, on oxygen, on pulse ph oximetry. 10:54 Epifanio Miranda MD is Attending Physician. jr11 11:01 Samia Crouch RN is Primary Nurse. ph 11:35 Initial lab(s) drawn, by me, sent to lab. First set of blood cultures drawn by me, ph Second set of blood cultures drawn by me. 11:37 Maintain EMS IV. Dressing intact. Good blood return noted. Site clean \T\ dry. Gauge \T\ ph site: 20 RAC. Flushed with 10 mL NS. 11:39 Lactate w/ 2H reflex if indic. Sent. ph 11:39 Venous Blood Gas Sent. ph 11:39 COVID-19 Ag + Flu A+B Ag Sent. ph 11:39 Troponin HS Sent. ph 11:39 Ptt, Activated Sent. ph 11:39 PT-INR Sent. ph 11:39 NT PRO-BNP Sent. ph 11:39 Magnesium Sent. ph 11:39 Lipase Sent. ph 11:39 Hepatic Function Sent. ph 11:39 D-Dimer Sent. ph 11:39 CPK Sent. ph 11:39 Blood Culture Adult (2) Sent. ph 11:39 BMP Sent. ph 12:06 XRAY CXR (1 view) In Process Unspecified. EDMS 12:36 Jl Padilla is Hospitalizing Provider. jr11 14:13 No provider procedures requiring assistance completed. Patient admitted, IV remains in bp place. 14:15 Patient has correct armband on for positive identification. Provided Education on: NA. bp Administered Medications: 12:00 Drug: Ipratropium Inhalation Aerosol 0.5 mg Inhalation once; Every 20 min for a total ph of 3 treatments x3 Route: Inhalation; 12:30 Drug: Furosemide IVP 40 mg IVP once; give over 2 minutes Route: IVP; Site: right ph antecubital; 12:32 Drug: Albuterol Inhalation 2.5 mg Inhalation every 20 minutes x3 Route: Inhalation; ph 13:10 Drug: Rocephin IV 2 grams IV at calculated rate once; Given slow IV push per pharmarcy ph instructions Route: IV; Rate: calculated rate; Site: right antecubital; 13:40 Follow up: Response: No adverse reaction; IV Status: Completed infusion ph 13:56 Drug: AZITHromycin IVPB 500 mg IVPB once over 1 hrs; (mix in 250 mL NS) Route: IVPB; ph Infused Over: 1 hrs; Site: right antecubital; 14:48 Follow up: Response: No adverse reaction; IV Status: Infusion continued upon admission ph Medication: 14:15 VIS not applicable for this client. bp Outcome: 12:36 Decision to Hospitalize by Provider. jr11 14:13 Admitted to Med/surg accompanied by tech, via stretcher, with oxygen, bp 14:13 Condition: stable 14:13 Instructed on the need for admit, 14:55 Patient left the ED. ph Signatures: Dispatcher [employer] Samia Saunders RN RN ph Peltier, Brian, RN RN Epifanio Mensah MD MD jr11
--- NOTE | 2025-04-14 12:55 | P.HP ---
Certification for Inpatient Patient admitted to: Inpatient With expected LOS: >2 Midnights Patient will require the following post-hospital care: None Practitioner: I am a practitioner with admitting privileges, knowledge of patient current condition, hospital course, and medical plan of care. Services: Services provided to patient in accordance with Admission requirements found in Title 42 Section 412.3 of the Code of Federal Regulations Patient History Date of Service: 04/14/25 Reason for admission: Acute hypoxic respiratory failure secondary to right upper lobe pneumonia History of Present Illness: Jose Elias Lunsford is a 79-year-old male with past medical history of anxiety, colon cancer with chemo, depressive disorder, hypertension, atrial fibrillation who presents to the ED with a chief complaint of worsening shortness of breath for the past 2 weeks. He reports a productive adductive cough. He is on 2 L nasal cannula on evaluation. Chest x-ray reports "Mild right upper lobe opacities may indicate pneumonitis/atypical pneumonia" Jose Elias will be admitted to hospitalist service for further evaluation and treatment of acute Evoxac respiratory failure secondary to right upper lobe pneumonia. Allergies No Known Allergies Allergy (Unverified 04/26/13 14:49) Home Medications: Furosemide [Lasix 40 MG INJ*] 40 mg IV DAILY vial 05/22/22 Acetaminophen 650 mg PO Q6H PRN 04/14/25 Apixaban [Eliquis *] 2.5 mg PO BID 04/14/25 Ciclopirox/Ure/Camph/Menth/Euc [Ciclopirox 8% Treatment Kit] 1 appl TD DAILY 04/14/25 Cyanocobalamin [Vitamin B-12*] 1,000 mcg PO DAILY 04/14/25 Duloxetine HCl 30 mg PO BEDTIME 04/14/25 Ergocalciferol (Vitamin D2) [Vitamin D2] 1,250 mcg PO SEECOM 04/14/25 Naloxone HCl [Narcan] 4 mg RUBIA 1X PRN 04/14/25 Quetiapine Fumarate [Seroquel] 100 mg PO BEDTIME 04/14/25 Tramadol HCl [Ultram] 50 mg PO Q6H 04/14/25 Zinc Oxide [Zinc Oxide 20%] 1 appl TOP DAILY PRN 04/14/25 - Past Medical/Surgical History Diabetic: No -: Stage 2 Colon cancer on chemo -: Insulin Dependent Type 2 Diabetes -: right ankle 1987 -: Bowel Resection -: Exploratory lap -: Diaz Cath insertion -: Cholecystectomy Psychosocial/ Personal History: Patient lives at home alone. He has home health. - Social History Alcohol use: No CD- Drugs: No Caffeine use: Yes Review of Systems Other: Per HPI Physical Examination - Physical Exam General: Alert, In no apparent distress, Oriented x3, Cachectic HEENT: Atraumatic, Normocephalic Neck: Supple, 2+ carotid pulse no bruit Respiratory: Normal air movement Cardiovascular: Normal pulses, Regular rate/rhythm Capillary refill: <2 Seconds Gastrointestinal: Normal bowel sounds, Soft and benign Musculoskeletal: No clubbing Integumentary: No rashes Neurological: Normal speech, Normal tone - Studies Laboratory Data (last 24 hrs) 04/14/25 04/14/25 04/14/25 11:15 11:15 11:15 WBC 9.90 Hgb 14.7 Hct 44.9 Plt Count 243 PT 14.3 H INR 1.27 APTT 32.5 Sodium 135 L Potassium 3.9 BUN 11 Creatinine 0.51 L Glucose 121 H Magnesium 2.0 Total Bilirubin 0.5 AST 12 L ALT < 14 L Alkaline Phosphatase 76 Lipase 16 Assessment and Plan - Plan Assessment and plan Acute hypoxic respiratory distress secondary to right upper lobe pneumonia - Rocephin and Zithromax - Currently on 2 L nasal cannula - DuoNebs every 6 hours -Monitor blood cultures and red blood cells in the a.m. - Oxygen supplementation as needed - Lasix given in the ED - Sputum culture ordered - Follow blood cultures Anxiety colon CA with chemo depressive disorder Hypertensive disorder -Continue follow-up outpatient - Continue home medications as appropriate - Monitor blood pressure every shift DVT PPx Eliquis Full code LOS 2 to 3 days Discharge Plan: Home Plan to discharge in: 72 Hours - Advance Directives Does patient have a Living Will: No Does patient have a Durable POA for Healthcare: No Time Spent Managing Pts Care (In Minutes): 60
[2025-04-14] MEDS ORDERED: CEFTRIAXONE 2000 MG/VIAL ONE (13:09)
[2025-04-14] MEDS ORDERED: ALBUTEROL 2.5 MG/3 ML NEB SOL ONE (13:09)
[2025-04-14] MEDS ORDERED: AZITHROMYCIN 500 MG INJ IVPB ONE (13:09)
[2025-04-14] MEDS ORDERED: IPRATROPIUM BROM 0.5MG/2.5ML ONE (13:09)
[2025-04-14] MEDS ORDERED: FUROSEMIDE 40 MG/4 ML VIAL ONE (13:10)
[2025-04-14] MEDS ORDERED: NA CHLORIDE 0.9% 100 ML ONE (13:10)
[2025-04-14] MEDS ORDERED: NA CHLORIDE 0.9% 250 ML ONE (13:10)
[2025-04-14] MEDS ORDERED: ACETAMINOPHEN 325 MG TABLET PO PRN (13:18)
[2025-04-14] MEDS: AZITHROMYCIN IV 500 MG in NA CHLORIDE 0.9% 250 ML IVPB ONE (13:18)
[2025-04-14 15:42] VITALS: BMI 37.3
[2025-04-14] MEDS ORDERED: ALBUTEROL 2.5 MG/3 ML NEB SOL NEB SCH (19:00)
[2025-04-14] MEDS ORDERED: IPRATROPIUM BROM 0.5MG/2.5ML NEB SCH (19:00)
[2025-04-14] MEDS: IPRATROPIUM BROM 0.5MG/2.5ML NEB SCH (19:58)
[2025-04-14] MEDS: ALBUTEROL 2.5 MG/3 ML NEB SOL NEB SCH (19:58)
[2025-04-14] MEDS: DULOXETINE 30 MG CAP PO SCH (20:23)
[2025-04-14] MEDS: APIXABAN 2.5 MG TABLET PO SCH (20:23)
[2025-04-14] MEDS: TRAMADOL HCL 50 MG TAB PO SCH (20:23)
[2025-04-15 06:19] LABS: Absolute Lymphocytes (CBC) 1.3 K/uL (0.7-4.9); Hematocrit 44.1 % (39.6-49.0); Hemoglobin 14.9 g/dL (13.6-17.9); MCH 30.2 pg (27.0-35.0); MCHC 33.9 g/dL (32.0-36.0); MCV 89.2 fL (80-100); MPV 8.4 fL (7.6-11.3); Nucleated RBC Absolute Count 0.1 (0-0); Nucleated Red Blood Cells % 0.5 % (0-0); RBC Red Blood Cell Count 4.94 M/uL (4.33-5.43); White Blood Count 14.00 thou/uL (4.3-10.9)
[2025-04-15 06:35] LABS: Anion Gap 6.0 mEq/L (5.0-15.0); BUN Blood Urea Nitrogen 18.0 mg/dL (7-18); Glucose Level 134.0 mg/dL (74-106); Magnesium 2.0 mg/dL (1.6-2.4); Potassium 4.0 mEq/L (3.5-5.1)
[2025-04-15] MEDS: CEFTRIAXONE 1,000 MG in NA CHLORIDE 0.9% 50 ML IVPB SCH (08:35)
[2025-04-15] MEDS ORDERED: ENOXAPARIN 40 MG/0.4 ML SQ SCH (09:00)
--- NOTE | 2025-04-15 16:55 | RAD REPORT ---
EXAM: AP view(s) of the abdomen Abdomen 1 View (KUB) HISTORY: Functional constipation COMPARISON: None FINDINGS: Nonobstructive bowel gas pattern.. Diffuse gaseous distention of the small bowel and colon. No suspicious calcifications are seen. No acute osseous abnormality. Other: IVC filter. IMPRESSION: Diffuse gaseous distention of the small bowel and colon likely reflecting an ileus. No sebastián wel obstruction identified. Formed stool burden is low.
--- NOTE | 2025-04-15 18:08 | P.PN ---
Date of Service: 04/15/25 Subjective On 2 LNC, conversing well Will need several days as his oxygen requirement has increased throughout the day ROS 10 point ROS as noted above, otherwise negative Physical Exam General: Alert and Oriented x3, NAD HEENT: Atraumatic, Normocephalic Neck: Supple, 2+ carotid pulse no bruit Respiratory: Normal air movement Cardiovascular: Normal pulses, mild tachycardia Capillary refill: <2 Seconds Gastrointestinal: Obese, soft on palpation, midline incision scar present Musculoskeletal: No clubbing Integumentary: No rashes Neurological: Normal speech, Normal tone Vitals Reviewed Problem list Acute hypoxic respiratory distress secondary to right upper lobe pneumonia 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 - Oxygen supplementation as needed, on Bipap - Lasix x 1 today - Sputum culture ordered - blood cultures no growth today Anxiety colon CA with chemo depressive disorder Hypertensive disorder -Continue follow-up outpatient - Continue home medications as appropriate - Monitor blood pressure every shift DVT PPx Eliquis Full code LOS 2 to 3 days Discharge Plan: Home Plan to discharge in: 72 Hours Time Spent Managing Pts Care (In Minutes): 35
[2025-04-15] MEDS: FUROSEMIDE 40 MG/4 ML VIAL IV ONE (19:21)
[2025-04-15] MEDS: ONDANSETRON 4 MG/2 ML VIAL IV PRN (21:25)
[2025-04-16 06:58] LABS: Absolute Lymphocytes (CBC) 1.5 K/uL (0.7-4.9); Hematocrit 44.6 % (39.6-49.0); Hemoglobin 14.5 g/dL (13.6-17.9); MCH 29.5 pg (27.0-35.0); MCHC 32.5 g/dL (32.0-36.0); MCV 90.7 fL (80-100); MPV 9.3 fL (7.6-11.3); Nucleated RBC Absolute Count 0.0 (0-0); Nucleated Red Blood Cells % 0.1 % (0-0); RBC Red Blood Cell Count 4.92 M/uL (4.33-5.43); White Blood Count 13.40 thou/uL (4.3-10.9)
[2025-04-16 07:12] LABS: Anion Gap 4.5 mEq/L (5.0-15.0); BUN Blood Urea Nitrogen 27.0 mg/dL (7-18); Glucose Level 123.0 mg/dL (74-106); Magnesium 2.1 mg/dL (1.6-2.4); Potassium 3.5 mEq/L (3.5-5.1)
[2025-04-16] MEDS: POTASSIUM CL SA 10 MEQ TAB PO ONE (08:42)
--- NOTE | 2025-04-16 10:40 | RAD REPORT ---
Procedure: Chest Single View HISTORY: Cough COMPARISON: April 14, 2025 FINDINGS: Mild bilateral pulmonary opacities are without significant change in presumably chronic Lungs appear clear of acute infiltrate. No significant pleural effusion noted. The heart is normal size. IMPRESSION: No acute abnormality is displayed.
--- NOTE | 2025-04-16 15:32 | P.PN ---
Date of Service: 04/16/25 Subjective oxygen requirement increased now with nausea/vomiting with Ileus found on scan now NPO ROS 10 point ROS as noted above, otherwise negative Physical Exam General: AAO x3, NAD HEENT: Atraumatic, Normocephalic Neck: Supple, 2+ carotid pulse no bruit Respiratory: Normal air movement, on 5 LNC Cardiovascular: mild tachycardia, S1 S2 present Gastrointestinal: Obese, Soft, midline incision scar present Musculoskeletal: No clubbing Integumentary: No rashes Neurological: Normal speech, Normal tone Vitals Reviewed Problem list Acute hypoxic respiratory distress secondary to right upper lobe pneumonia 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 - Oxygen supplementation as needed, on Bipap - Sputum culture ordered - blood cultures no growth today Ileus -KUB reports " Diffuse gaseous distention of the small bowel and colon likely reflecting an ileus. No bowel obstruction identified. Formed stool burden is low." - NPO -Continuous telemetry -Zofran Anxiety colon CA with chemo depressive disorder Hypertensive disorder -Continue follow-up outpatient - Continue home medications as appropriate - Monitor blood pressure every shift DVT PPx Eliquis Full code LOS 2 to 3 days Discharge Plan: Home Plan to discharge in: 72 Hours Time Spent Managing Pts Care (In Minutes): 32
[2025-04-17 06:32] LABS: Absolute Lymphocytes (CBC) 1.8 K/uL (0.7-4.9); Hematocrit 41.1 % (39.6-49.0); Hemoglobin 13.5 g/dL (13.6-17.9); MCH 29.8 pg (27.0-35.0); MCHC 32.9 g/dL (32.0-36.0); MCV 90.7 fL (80-100); MPV 9.2 fL (7.6-11.3); Nucleated RBC Absolute Count 0.0 (0-0); Nucleated Red Blood Cells % 0.1 % (0-0); RBC Red Blood Cell Count 4.53 M/uL (4.33-5.43); White Blood Count 11.90 thou/uL (4.3-10.9)
[2025-04-17 06:58] LABS: Anion Gap 4.5 mEq/L (5.0-15.0); BUN Blood Urea Nitrogen 27.0 mg/dL (7-18); Glucose Level 111.0 mg/dL (74-106); Magnesium 2.1 mg/dL (1.6-2.4); Potassium 3.5 mEq/L (3.5-5.1)
--- NOTE | 2025-04-17 13:59 | P.PN ---
Date of Service: 04/17/25 Subjective Using the yankauer suction c/o nausea yesterday with KUB showing Ileus Will re-evaluate ROS 10 point ROS as noted above, otherwise negative Physical Exam General: Alert, awake, oriented x3, NAD HEENT: Atraumatic, Normocephalic Neck: Supple, 2+ carotid pulse no bruit Respiratory: Expiratory wheeze, on 5 LNC Cardiovascular: mild tachycardia, S1 S2 present Gastrointestinal: Obese, Soft, midline incision scar present Musculoskeletal: No clubbing Integumentary: No rashes Neurological: Normal speech, Normal tone Vitals Reviewed Problem list Acute hypoxic respiratory distress secondary to right upper lobe pneumonia 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 - Oxygen supplementation as needed, on Bipap - Sputum culture ordered - blood cultures no growth today Ileus -KUB reports " Diffuse gaseous distention of the small bowel and colon likely reflecting an ileus. No bowel obstruction identified. Formed stool burden is low." -repeat abdominal xray pending - NPO -Continuous telemetry -Zofran Anxiety colon CA with chemo depressive disorder Hypertensive disorder -Continue follow-up outpatient - Continue home medications as appropriate - Monitor blood pressure every shift DVT PPx Eliquis Full code LOS 2 to 3 days Discharge Plan: Home Plan to discharge in: 72 Hours Time Spent Managing Pts Care (In Minutes): 32
--- NOTE | 2025-04-17 14:37 | RAD REPORT ---
EXAM: Abdomen W Erect HISTORY: Ileus serial exam COMPARISON: 04/15/2025 FINDINGS: Diffuse colonic and to a lesser extent small bowel distention. No free air or fluid levels. Small bilateral effusions. No acute osseous abnormality. No significant/abnormal calcifications. IMPRESSION: Similar diffuse colonic and, to a lesser extent, small bowel gaseous distention likely re flecting an ileus.
[2025-04-17] MEDS: D5 0.45 NS 1,000 ML IV SCH (21:31)
[2025-04-18 06:33] LABS: Absolute Lymphocytes (CBC) 2.1 K/uL (0.7-4.9); Hematocrit 40.3 % (39.6-49.0); Hemoglobin 13.6 g/dL (13.6-17.9); MCH 30.3 pg (27.0-35.0); MCHC 33.7 g/dL (32.0-36.0); MCV 90.0 fL (80-100); MPV 8.7 fL (7.6-11.3); Nucleated RBC Absolute Count 0.0 (0-0); Nucleated Red Blood Cells % 0.1 % (0-0); RBC Red Blood Cell Count 4.48 M/uL (4.33-5.43); White Blood Count 9.10 thou/uL (4.3-10.9)
[2025-04-18 06:55] LABS: Anion Gap 5.9 mEq/L (5.0-15.0); BUN Blood Urea Nitrogen 19.0 mg/dL (7-18); Glucose Level 99.0 mg/dL (74-106); Magnesium 2.1 mg/dL (1.6-2.4); Potassium 3.9 mEq/L (3.5-5.1)
--- NOTE | 2025-04-18 09:50 | P.PN ---
Date of Service: 04/18/25 Subjective Using the yankauer suction +flatus, no abd pain overnight Improving ROS 10 point ROS as noted above, otherwise negative Physical Exam General: Alert, awake, oriented x3, NAD HEENT: Atraumatic, Normocephalic Neck: Supple, 2+ carotid pulse no bruit Respiratory: Expiratory wheeze, on 5 LNC Cardiovascular: mild tachycardia, S1 S2 present Gastrointestinal: Obese, Soft, midline incision scar present Musculoskeletal: No clubbing Integumentary: No rashes Neurological: Normal speech, Normal tone Vitals Reviewed Problem list Acute hypoxic respiratory distress secondary to right upper lobe pneumonia 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 - Oxygen supplementation as needed, on nasal cannula - Sputum culture ordered - blood cultures no growth in 24 hours -Wean 02 as tolerated -DDimer negative, doubt PE Ileus -KUB reports " Diffuse gaseous distention of the small bowel and colon likely reflecting an ileus. No bowel obstruction identified. 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
[2025-04-18] MEDS: POTASSIUM PHOS IN 0.9 % NACL 15 MMOL/250 ML BAG IV ONE (10:09)
[2025-04-19 06:06] LABS: Absolute Lymphocytes (CBC) 1.9 K/uL (0.7-4.9); Hematocrit 42.4 % (39.6-49.0); Hemoglobin 13.9 g/dL (13.6-17.9); MCH 29.5 pg (27.0-35.0); MCHC 32.8 g/dL (32.0-36.0); MCV 90.0 fL (80-100); MPV 9.4 fL (7.6-11.3); Nucleated RBC Absolute Count 0.0 (0-0); Nucleated Red Blood Cells % 0.1 % (0-0); RBC Red Blood Cell Count 4.71 M/uL (4.33-5.43); White Blood Count 9.30 thou/uL (4.3-10.9)
[2025-04-19 06:34] LABS: Anion Gap 7.1 mEq/L (5.0-15.0); BUN Blood Urea Nitrogen 9.0 mg/dL (7-18); Glucose Level 108.0 mg/dL (74-106); Magnesium 2.0 mg/dL (1.6-2.4); Potassium 4.1 mEq/L (3.5-5.1)
--- NOTE | 2025-04-19 10:39 | RAD REPORT ---
EXAMINATION: CTA CHEST PE CLINICAL INDICATION: dyspnea, hypoxia, hx PE TECHNIQUE: This examination was performed according to an angiographic protocol with 3D post-processi ng. This involves 3D reconstructions, MIPs, volume rendered images and/or shaded surface rendering. One or more of the following dose reduction techniques were used: Automated exposure control, adjustm ent of the mA and/or kV according to patient size, and/or iterative reconstruction. Unless otherwise specified, incidental findings do not require dedicated imaging follow-up. COMPARISON: 09/09/2013 FINDINGS: PULMONARY ARTERIES: Normal caliber. No evidence of pulmonary emboli to the subsegmental level. THORACIC AORTA: Normal caliber and configuration. LUNGS: Mild to moderate linear opacities in both posterior lung bases likely subsegmental atelectasis . PLEURA: Small bilateral pleural effusions, slightly greater on the left. MEDIASTINUM AND LYMPH NODES: No mediastinal mass or fluid collection. Normal size mediastinal, hilar, and axillary lymph nodes. OSSEOUS STRUCTURES AND CHEST WALL: Significant bilateral degenerative changes in both shoulders. UPPER ABDOMEN: No significant abnormalities. IMPRESSION: No evidence of pulmonary emboli to the subsegmental level. Moderate linear opacity in both posterior lung bases, with small pleural effusions, favored to repres ent atelectasis although mild early infiltrate not excluded.
--- NOTE | 2025-04-19 14:48 | P.PN ---
Date of Service: 04/19/25 Subjective Abdominal pain improved, tolerating diet Still with shortness of breath requiring oxygen No other acute events overnight ROS 10 point ROS as noted above, otherwise negative Physical Exam General: Alert, awake, oriented x3, NAD HEENT: Atraumatic, Normocephalic Neck: Supple, 2+ carotid pulse no bruit Respiratory: Diminished breath sounds bilaterally, on 5 LNC Cardiovascular: mild tachycardia, S1 S2 present Gastrointestinal: Obese, Soft, midline incision scar present Musculoskeletal: No clubbing Integumentary: No rashes Neurological: Normal speech, Normal tone Vitals Reviewed Problem list Acute hypoxic respiratory distress secondary to right upper lobe pneumonia 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 No bowel obstruction identified. 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
[2025-04-19] MEDS: predniSONE 20 MG TAB PO SCH (18:05)
[2025-04-20 04:38] LABS: Absolute Lymphocytes (CBC) 2.5 K/uL (0.7-4.9); Hematocrit 40.3 % (39.6-49.0); Hemoglobin 13.6 g/dL (13.6-17.9); MCH 30.0 pg (27.0-35.0); MCHC 33.7 g/dL (32.0-36.0); MCV 89.1 fL (80-100); MPV 8.6 fL (7.6-11.3); Nucleated RBC Absolute Count 0.0 (0-0); Nucleated Red Blood Cells % 0.2 % (0-0); RBC Red Blood Cell Count 4.53 M/uL (4.33-5.43); White Blood Count 10.60 thou/uL (4.3-10.9)
[2025-04-20 04:56] LABS: Anion Gap 3.2 mEq/L (5.0-15.0); BUN Blood Urea Nitrogen 10.0 mg/dL (7-18); Glucose Level 111.0 mg/dL (74-106); Magnesium 2.1 mg/dL (1.6-2.4); Potassium 4.2 mEq/L (3.5-5.1)
[2025-04-20] MEDS: ARFORMOTEROL TARTRATE 15 MCG/2 ML VIAL.NEB NEB SCH (08:24)
--- NOTE | 2025-04-20 08:26 | P.CNS ---
Date of Consult: 04/20/25 Reason for Consult: Hypoxemia some interstitial changes Chief Complaint: Hypoxemia History of Present Illness: Patient is 79 years of age in assisted living residence is unable to ambulate due to problem with weakness of his right leg apparently was found to have a low sat and it appeared in the emergency room denies any cough shortness of breath no prior history of cardiopulmonary problems patient has never smoked no cough congestion emergency room states that he was short of breath on admission he denies any history of COPD Allergies No Known Allergies Allergy (Unverified 04/26/13 14:49) Home Medications: Furosemide [Lasix 40 MG INJ*] 40 mg IV DAILY vial 05/22/22 Acetaminophen 650 mg PO Q6H PRN 04/14/25 Apixaban [Eliquis *] 2.5 mg PO BID 04/14/25 Ciclopirox/Ure/Camph/Menth/Euc [Ciclopirox 8% Treatment Kit] 1 appl TD DAILY 04/14/25 Cyanocobalamin [Vitamin B-12*] 1,000 mcg PO DAILY 04/14/25 Duloxetine HCl 30 mg PO BEDTIME 04/14/25 Ergocalciferol (Vitamin D2) [Vitamin D2] 1,250 mcg PO SEECOM 04/14/25 Naloxone HCl [Narcan] 4 mg RUBIA 1X PRN 04/14/25 Quetiapine Fumarate [Seroquel] 100 mg PO BEDTIME 04/14/25 Tramadol HCl [Ultram] 50 mg PO Q6H 04/14/25 Zinc Oxide [Zinc Oxide 20%] 1 appl TOP DAILY PRN 04/14/25 - Past Medical/Surgical History Diabetic: No -: Stage 2 Colon cancer on chemo -: Insulin Dependent Type 2 Diabetes -: History of pulmonary embolism status post thrombectomy -: right ankle 1987 -: Bowel Resection -: Exploratory lap -: Diaz Cath insertion -: Cholecystectomy Psychosocial/ Personal History: Patient lives at home alone. He has home health. - Social History Smoking Status: Former smoker Alcohol use: No CD- Drugs: No Caffeine use: Yes Place of Residence: [facility] Review of Systems Unremarkable General: Weakness Physical Examination Temp Pulse Resp BP Pulse Ox 98.9 F 90 18 120/71 95 04/20/25 04:00 04/20/25 04:00 04/20/25 04:00 04/20/25 04:00 04/20/25 04:00 General: Alert, Oriented x3 HEENT: Atraumatic Neck: Supple Respiratory: Clear to auscultation bilaterally Cardiovascular: No edema, Normal pulses, Regular rate/rhythm - Problems (1) Hypoxemia Current Visit: Yes Status: Acute Plan: Patient is 79 years of age admitted with low sat no prior history of cardiopulmonary problems history of remote PE that was treated with embolectomy was while he was treated for his colon cancer denies any symptoms of sleep apnea no history of obstructive airways disease patient is on Eliquis CT scan shows no pulmonary emboli nonspecific changes of the lower lobes labs chemistries reviewed his white count is normal I ordered an echocardiogram no evidence of pneumonia added low-dose of Lasix may have underlying diastolic dysfunction BNP is elevated may have underlying obstructive airways disease trial of inhaled bronchodilators apparently the nurse practitioner was unable to wean him off the oxygen I ordered an arterial blood gases
[2025-04-20] MEDS: FUROSEMIDE 20 MG/ 2ML VIAL IV SCH (09:48)
--- NOTE | 2025-04-20 15:14 | P.PN ---
Date of Service: 04/20/25 Subjective Abdominal pain improved, tolerating diet Still with shortness of breath requiring oxygen but improving No other acute events overnight ROS 10 point ROS as noted above, otherwise negative Physical Exam General: Alert, awake, oriented x3, NAD HEENT: Atraumatic, Normocephalic Neck: Supple, 2+ carotid pulse no bruit Respiratory: Diminished breath sounds bilaterally, on 2 LNC Cardiovascular: mild tachycardia, S1 S2 present Gastrointestinal: Obese, Soft, midline incision scar present Musculoskeletal: No clubbing Integumentary: No rashes Neurological: Normal speech, Normal tone Vitals Reviewed Problem list Acute hypoxic respiratory distress secondary to right upper lobe pneumonia 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 No bowel obstruction identified. 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
[2025-04-20] MEDS ORDERED: TRAMADOL HCL 50 MG TAB PO PRN (17:18)
[2025-04-21 07:39] LABS: Absolute Lymphocytes (CBC) 1.6 K/uL (0.7-4.9); Hematocrit 43.8 % (39.6-49.0); Hemoglobin 14.4 g/dL (13.6-17.9); MCH 29.1 pg (27.0-35.0); MCHC 32.8 g/dL (32.0-36.0); MCV 88.7 fL (80-100); MPV 9.0 fL (7.6-11.3); Nucleated RBC Absolute Count 0.0 (0-0); Nucleated Red Blood Cells % 0.1 % (0-0); RBC Red Blood Cell Count 4.93 M/uL (4.33-5.43); White Blood Count 12.70 thou/uL (4.3-10.9)
[2025-04-21 08:16] LABS: Anion Gap 5.5 mEq/L (5.0-15.0); BUN Blood Urea Nitrogen 17.0 mg/dL (7-18); Glucose Level 134.0 mg/dL (74-106); Magnesium 2.2 mg/dL (1.6-2.4); Potassium 4.5 mEq/L (3.5-5.1)
--- NOTE | 2025-04-21 15:05 | P.PN ---
Date of Service: 04/21/25 Subjective Abdominal pain improved, tolerating diet Still with shortness of breath requiring oxygen but improving No other acute events overnight ROS 10 point ROS as noted above, otherwise negative Physical Exam General: Alert, awake, oriented x3, NAD HEENT: Atraumatic, Normocephalic Neck: Supple, 2+ carotid pulse no bruit Respiratory: Diminished breath sounds bilaterally, on 2 LNC Cardiovascular: mild tachycardia, S1 S2 present Gastrointestinal: Obese, Soft, midline incision scar present Musculoskeletal: No clubbing Integumentary: No rashes Neurological: Normal speech, Normal tone Vitals Reviewed Problem list Acute hypoxic respiratory distress secondary to right upper lobe pneumonia 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 No bowel obstruction identified. 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
[2025-04-21] MEDS: ENSURE MAX PROTEIN 330 ML LIQUID PO SCH (21:19)
[2025-04-21 22:20] VITALS: O2SAT 92
[2025-04-22 05:06] LABS: Hematocrit 43.7 % (39.6-49.0); Hemoglobin 14.5 g/dL (13.6-17.9); MCH 29.4 pg (27.0-35.0); MCHC 33.1 g/dL (32.0-36.0); MCV 89.0 fL (80-100); MPV 8.8 fL (7.6-11.3); RBC Red Blood Cell Count 4.91 M/uL (4.33-5.43); White Blood Count 15.80 thou/uL (4.3-10.9)
[2025-04-22 05:22] LABS: Anion Gap 8.8 mEq/L (5.0-15.0); BUN Blood Urea Nitrogen 24.0 mg/dL (7-18); Glucose Level 131.0 mg/dL (74-106); Potassium 4.8 mEq/L (3.5-5.1)
--- NOTE | 2025-04-22 08:44 | ECHO ---
HEIGHT: 6 ft 0 in WEIGHT: 275 lb 0 oz DATE OF STUDY: 04/21/[address]: Robby Langston MD 2-DIMENSIONAL: YES M.MODE: YES DOPPLER: YES COLOR FLOW: YES TDS: YES PORTABLE: YES DEFINITY: NO BUBBLE STUDY: NO DIAGNOSIS: RULE OUT CONGESTIVE HEART FAILURE CARDIAC HISTORY: CATHERIZATION: NO SURGERY: NO PROSTHETIC VALVE: NO PACEMAKER: NO MEASUREMENTS (cm) DIASTOLIC (NORMALS) SYSTOLIC (NORMALS) IVSd 1.2 (0.6-1.2) LA Diam 3.9 (1.9-4.0) LVEF 54% LVIDd 3.2 (3.5-5.7) LVIDs 2.3 (2.0-3.5) %FS 2.7% LVPWd 1.2 (0.6-1.2) Ao Diam 3.2 (2.0-3.7) 2 DIMENSIONAL ASSESSMENT: RIGHT ATRIUM: LEFT ATRIUM: RIGHT VENTRICLE: LEFT VENTRICLE: TRICUSPID VALVE: MITRAL VALVE: PULMONIC VALVE: AORTIC VALVE: PERICARDIAL EFFUSION: AORTIC ROOT: LEFT VENTRICULAR WALL MOTION: UNABLE TO EVALUATE DUE TO POOR WINDOWS. DOPPLER/COLOR FLOW: SEE BELOW. COMMENTS: 1. VERY LIMITED STUDY DUE TO POOR WINDOWS. 2. UNABLE TO EVALUATE WALL MOTION. 3. OVERALL LEFT VENTRICULAR EJECTION FRACTION APPEARS NORMAL. TECHNOLOGIST: JORGE L AGUIRRE
--- NOTE | 2025-04-22 09:40 | P.DS ---
Admission Date: 04/14/25 Discharge Date: 04/22/25 Disposition: ROUTINE DISCHARGE Discharge Condition: GOOD Reason for Admission: Hypoxemia Brief History of Present Illness: Jose Elias Lunsford is a 79-year-old male with past medical history of anxiety, colon cancer with chemo, depressive disorder, hypertension, atrial fibrillation who presents to the ED with a chief complaint of worsening shortness of breath for the past 2 weeks. He reports a productive adductive cough. He is on 2 L nasal cannula on evaluation. Chest x-ray reports "Mild right upper lobe opacities may indicate pneumonitis/atypical pneumonia" Jose Elias will be admitted to hospitalist service for further evaluation and treatment of acute Evoxac respiratory failure secondary to right upper lobe pneumonia. 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 He was treated with IV antibiotics but was still requiring 5 L of nasal cannula oxygen, there may be some restrictive lung disease going on as well, we started him on steroids, inhaled corticosteroids and he is seen by pulmonology. He had significant rapid improvement once the steroids were initiated and is stable for discharge back on room air at this time. He completed a course of antibiotics already. CT of the chest was also performed given his history of pulmonary embolism, no PE was present there was some bibasilar atelectasis, he has an incentive spirometer which has been provided with the discharge. Continue home medications as previously prescribed Prescription for Advair discus inhaler, short course of oral steroids with prednisone and as needed cough medication sent to the pharmacy [facility]. Please follow-up with your primary care doctor 1 to 2 weeks Please also follow-up with pulmonologyDr. Langston in 1 to 2 weeks Vital Signs/Physical Exam: Temp Pulse Resp BP Pulse Ox 97.6 F 105 H 18 122/64 92 04/22/25 08:00 04/22/25 08:00 04/22/25 08:00 04/22/25 08:00 04/22/25 08:00 General: Alert, In no apparent distress, Oriented x3 HEENT: Atraumatic, PERRLA Neck: Supple, JVD not distended Respiratory: Clear to auscultation bilaterally, Normal air movement Cardiovascular: Regular rate/rhythm, Normal S1 S2 Gastrointestinal: Normal bowel sounds, No tenderness Musculoskeletal: No tenderness Integumentary: No rashes Neurological: Normal speech, Normal affect Laboratory Data at Discharge: WBC 15.80 thou/uL (4.3-10.9) H 04/22/25 04:41 Hgb 14.5 g/dL (13.6-17.9) 04/22/25 04:41 Hct 43.7 % (39.6-49.0) 04/22/25 04:41 Plt Count 335 thou/uL (152-406) 04/22/25 04:41 PT 14.3 SECONDS (10-13.0) H 04/14/25 11:15 INR 1.27 04/14/25 11:15 APTT 32.5 SECONDS (27.2-37.4) 04/14/25 11:15 Sodium 136 mEq/L (136-145) 04/22/25 04:41 Potassium 4.8 mEq/L (3.5-5.1) 04/22/25 04:41 BUN 24 mg/dL (7-18) H 04/22/25 04:41 Creatinine 0.52 mg/dL (0.70-1.30) L 04/22/25 04:41 Glucose 131 mg/dL (74-106) H 04/22/25 04:41 Phosphorus 2.8 mg/dL (2.5-4.9) 04/21/25 07:09 Magnesium 2.2 mg/dL (1.6-2.4) 04/21/25 07:09 Total Bilirubin 0.5 mg/dL (0.2-1.0) 04/14/25 11:15 AST 12 U/L (15-37) L 04/14/25 11:15 ALT < 14 U/L (16-61) L 04/14/25 11:15 Alkaline Phosphatase 76 U/L (45-117) 04/14/25 11:15 Lipase 16 U/L (13-75) 04/14/25 11:15 Home Medications: Furosemide [Lasix 40 MG INJ*] 40 mg IV DAILY vial 05/22/22 Acetaminophen 650 mg PO Q6H PRN 04/14/25 Apixaban [Eliquis *] 2.5 mg PO BID 04/14/25 Ciclopirox/Ure/Camph/Menth/Euc [Ciclopirox 8% Treatment Kit] 1 appl TD DAILY 04/14/25 Cyanocobalamin [Vitamin B-12*] 1,000 mcg PO DAILY 04/14/25 Duloxetine HCl 30 mg PO BEDTIME 04/14/25 Ergocalciferol (Vitamin D2) [Vitamin D2] 1,250 mcg PO SEECOM 04/14/25 Naloxone HCl [Narcan] 4 mg RUBIA 1X PRN 04/14/25 Quetiapine Fumarate [Seroquel] 100 mg PO BEDTIME 04/14/25 Tramadol HCl [Ultram] 50 mg PO Q6H 04/14/25 Zinc Oxide [Zinc Oxide 20%] 1 appl TOP DAILY PRN 04/14/25 Benzonatate [Tessalon Perle] 100 mg PO TID #30 cap 04/22/25 Ensure Max Protein 330 ml PO DAILY can 04/22/25 Fluticasone Propion/Salmeterol [Advair 250-50 Diskus] 1 puff IH BID #1 inh 04/22/25 predniSONE [Deltasone*] 10 mg PO BID 7 Days #14 tab 04/22/25 New Medications: Fluticasone Propion/Salmeterol [Advair 250-50 Diskus] 1 puff IH BID #1 inh predniSONE [Deltasone*] 10 mg PO BID 7 Days #14 tab Benzonatate [Tessalon Perle] 100 mg PO TID #30 cap Physician Discharge Instructions: Patient was admitted to the hospital for right upper lobe pneumonia and hypoxia. He was treated with IV antibiotics but was still requiring 5 L of nasal cannula oxygen, there may be some restrictive lung disease going on as well, we started him on steroids, inhaled corticosteroids and he is seen by pulmonology. He had significant rapid improvement once the steroids were initiated and is stable for discharge back on room air at this time. He completed a course of antibiotics already. CT of the chest was also performed given his history of pulmonary embolism, no PE was present there was some bibasilar atelectasis, he has an incentive spirometer which has been provided with the discharge. Continue home medications as previously prescribed Prescription for Advair discus inhaler, short course of oral steroids with prednisone and as needed cough medication [facility]. Please follow-up with your primary care doctor 1 to 2 weeks Please also follow-up with pulmonologyDr. Kian in 1 to 2 weeks Diet: Regular Activity: Ad perico Followup: Robby Langston MD [ACTIVE - CAN ADMIT] - 1 Week [facility] [Primary [facility] - 1-2 Weeks Time spent managing pt's care (in minutes): 45
[2025-04-22 12:31] VITALS: BP 115/55; TEMP 97.9
== END 2025-04-22 12:14 | DRG 177 ==
LOC: ER 10:40 → ERHOLD 13:18 → 2ND 14:37
PROVIDERS: ADMIT Internal Medicine; ATTEND Hospitalist
DX: J15.1 Pneumonia due to Pseudomonas (principal); J96.21 Acute and chronic respiratory failure with hypoxia; J44.0 Chronic obstructive pulmonary disease with (acute) lower respiratory infection; R64 Cachexia; C18.9 Malignant neoplasm of colon, unspecified; K56.7 Ileus, unspecified; I10 Essential (primary) hypertension; F32.A Depression, unspecified; F41.9 Anxiety disorder, unspecified; I48.91 Unspecified atrial fibrillation; I49.3 Ventricular premature depolarization; E11.9 Type 2 diabetes mellitus without complications; Z60.2 Problems related to living alone; Z79.01 Long term (current) use of anticoagulants; Z68.37 Body mass index [BMI] 37.0-37.9, adult; Z90.49 Acquired absence of other specified parts of digestive tract; Z79.899 Other long term (current) drug therapy; Z87.891 Personal history of nicotine dependence; Z11.52 Encounter for screening for COVID-19
CPT/HCPCS: 36415; 71045; 71275; 74018; 74019; 80048; 80076; 82550; 82803; 82947; 83605; 83690; 83735; 83880; 84100; 84484; 85025; 85027; 85379; 85610; 85730; 87040; 87070; 87077; 87186; 87205; 87428; 93005; 93306; 94010; 94640; 96365; 96367; 96375; 99285; J0456; J0696; J1938; J2405; J7050; J7512; J7605; J7613; J7644; J7799; Q9967

== ENCOUNTER 2025-06-25 19:18 | Inpatient (IN) | payer OTHER ==
[2025-06-25] MEDS ORDERED: HYDROCORTISONE SUC 100 MG INJ ONE (19:46)
[2025-06-25] MEDS ORDERED: VANCOMYCIN 1 GM/VIAL ONE (19:46)
[2025-06-25] MEDS ORDERED: NA CHLORIDE 0.9% 500 ML ONE (19:47)
[2025-06-25] MEDS ORDERED: IPRATROPIUM BROM 0.5MG/2.5ML ONE (19:48)
[2025-06-25] MEDS ORDERED: NA CHLORIDE 0.9% 100 ML ONE (19:48)
[2025-06-25] MEDS ORDERED: ALBUTEROL 2.5 MG/3 ML NEB SOL ONE (19:49)
[2025-06-25] MEDS ORDERED: CEFEPIME 1 GM/VIAL ONE (19:49)
[2025-06-25 19:51] LABS: Absolute Lymphocytes (CBC) 3.7 K/uL (0.7-4.9); Hematocrit 45.0 % (39.6-49.0); Hemoglobin 14.6 g/dL (13.6-17.9); MCH 29.6 pg (27.0-35.0); MCHC 32.4 g/dL (32.0-36.0); MCV 91.5 fL (80-100); MPV 9.2 fL (7.6-11.3); Nucleated RBC Absolute Count 0.0 (0-0); Nucleated Red Blood Cells % 0.2 % (0-0); RBC Red Blood Cell Count 4.92 M/uL (4.33-5.43); White Blood Count 9.40 thou/uL (4.3-10.9)
[2025-06-25 20:01] LABS: PT Prothrombin Time 12.9 SECONDS (10-13.0); PTT, Activated Partial Thromb 31.5 SECONDS (27.2-37.4); Protime INR 1.15
[2025-06-25 20:18] LABS: ALT/SGPT 20.0 U/L (16-61); Albumin 2.6 g/dL (3.4-5.0); Albumin/Globulin Ratio 0.6 (1.1-1.8); Alkaline Phosphatase 79.0 U/L (45-117); Anion Gap 6.2 mEq/L (5.0-15.0); BUN Blood Urea Nitrogen 13.0 mg/dL (7-18); C-Reactive Protein 5.29 mg/L (<3.00); Globulin 4.2 g/dL (2.3-3.5); Glucose Level 119.0 mg/dL (74-106); NT PRO-BNP 423.0 pg/mL (<450); Troponin High Sensitivity 16.1 pg/mL (<58.9)
[2025-06-25 20:19] LABS: AST/SGOT 17.0 U/L (15-37); Potassium 4.2 mEq/L (3.5-5.1)
[2025-06-25 20:36] LABS: Blood O2 Saturation 95.4 % (92.0-98.5)
[2025-06-25] MEDS ORDERED: DIAZEPAM 10 MG/2 ML INJ SYRINGE ONE (21:20)
[2025-06-25] MEDS ORDERED: MORPHINE 4 MG/ML SYR ONE (21:20)
[2025-06-25] MEDS ORDERED: ONDANSETRON 4 MG/2 ML VIAL ONE (21:20)
[2025-06-25] MEDS ORDERED: NALOXONE HCL 2 MG/2 ML VIAL ONE (22:01)
[2025-06-26 00:57] LABS: Blood O2 Saturation 99.8 % (92.0-98.5)
[2025-06-26] MEDS ORDERED: ETOMIDATE 20 MG/10 ML VIAL IV ONE (01:11)
[2025-06-26] MEDS ORDERED: ROCURONIUM 50 MG/5 ML VIAL IV ONE (01:12)
[2025-06-26] MEDS ORDERED: MIDAZOLAM HCL IN 0.9 % NACL/PF 100 MG/100 ML BAG IVPB ONE (01:22)
[2025-06-26] MEDS ORDERED: MIDAZOLAM HCL 2 MG/2 ML INJ ONE ×2 (02:15→02:20)
[2025-06-26] MEDS ORDERED: MIDAZOLAM HCL 5 ML ONE (02:48)
[2025-06-26] MEDS ORDERED: NA CHLORIDE 0.9% 1,000 ML ONE (03:04)
[2025-06-26] MEDS ORDERED: NOREPINEPHRINE BITARTRATE/D5W 4 MG/250 ML BAG IV ONE (03:16)
[2025-06-26] MEDS ORDERED: NA CHLORIDE 0.9% 50 ML ONE (03:42)
[2025-06-26] MEDS ORDERED: FENTANYL CITR 100 MCG/2 ML ONE ×2 (03:42→03:47)
--- NOTE | 2025-06-26 03:58 | ER ---
Nurse's Notes [facility] Name: Jose Elias Lunsford Age: 79 yrs Sex: Male : 1945 Arrival Date: 06/25/2025 Time: 19:18 Bed 15 Private MD: Diagnosis: Other pneumonia, unspecified organism;Multifocal pneumonia, acute respiratory failure with hypercarbia, sepsis with septic shock, exhausted vascular access;Complications of immobility;Severe sepsis with septic shock Presentation: 06/25 19:21 Chief complaint: EMS states: SHORTNESS OF BREATH FOR THE PAST TWO DAYS, WHEEZING. ha1 OXYGEN SATURATION 89% ON ROOM AIR. DUO NEB GIVEN. COMING FROM [facility]. 19:21 Coronavirus screen: At this time, unable to obtain information related to travel ha1 outside the [place] Ebola Screen: No symptoms or risks identified at this time. Initial Sepsis Screen: Does the patient meet any 2 criteria? No. Patient's initial sepsis screen is negative. Does the patient have a suspected source of infection? No. Patient's initial sepsis screen is negative. Risk Assessment: Do you want to hurt yourself or someone else? Patient reports no desire to harm self or others. Onset of symptoms was June 23, 2025. 19:21 Method Of Arrival: EMS: [facility] ha1 19:21 Acuity: SHANA 2 ha1 Triage Assessment: 23:15 Respiratory: the patient has moderate shortness of breath. ss12 23:21 Respiratory: Onset: The symptoms/episode began/occurred gradually. ss12 Historical: - Allergies: 19:39 No Known Allergies; ha1 - Home Meds: 23:16 acetaminophen-codeine 300 mg-30 mg /12.5 mL Oral solution every 6 hours [Active]; ss12 albuterol sulfate 90 mcg/actuation Inhl Aerosol Powder every 6 hours [Active]; apixaban Oral [Active]; Dexamethasone Oral [Active]; Eliquis 2.5 mg Oral tablet every 12 hours [Active]; fluconazole Oral [Active]; furosemide 40 mg Oral tablet daily [Active]; IRON [Active]; loperamide Oral [Active]; Melatonin Oral [Active]; methocarbamol 750 mg Oral tablet 3 times per day [Active]; metoprolol tartrate 25 mg Oral tablet 2 times per day [Active]; Naproxen Oral [Active]; Nystatin Oral [Active]; Ondansetron Oral [Active]; OMEGA-2 [Active]; Prednisolone Oral [Active]; sennosides Oral [Active]; quetiapine 25 mg Oral tablet every day at bedtime [Active]; Triamterene-Hydrochlorothiazid Oral [Active]; - PMHx: 19:39 Anxiety; colon CA with chemo; depressive disorder; Hypertensive disorder; ibs; ha1 - PSHx: 19:39 colon resection; ha1 - Immunization history:: Adult Immunizations not up to date. - Infectious Disease History:: Denies. - Family history:: not pertinent. - Social history:: Smoking status: Patient denies any tobacco usage or history of. Screenin:30 Tuberculosis screening: No symptoms or risk factors identified. ss12 23:14 [facility] ED Fall Risk Assessment (Adult) History of falling in the last 3 months, ss12 including since admission No falls in past 3 months (0 pts) Confusion or Disorientation No (0 pts) Intoxicated or Sedated No (0 pts) Impaired Gait No (0 pts) Mobility Assist Device Used No (0 pt) Altered Elimination No (0 pt) Score/Fall Risk Level 0 - 2 = Low Risk Oriented to surroundings, Maintained a safe environment, Educated pt \T\ family on fall prevention, incl call for assistance when getting out of bed, Assessed \T\ reinforced patient's understanding of fall precautions, Provided non-skid footwear. Abuse screen: Denies threats or abuse. Denies injuries from another. Nutritional screening: No deficits noted. Assessment: 19:21 Reassessment:. General: Appears distressed, Behavior is calm, cooperative. Pain: Denies ss12 pain. Neuro: No deficits noted. Level of Consciousness is awake, alert, obeys commands, Oriented to person, place, time, situation. Cardiovascular: No deficits noted. Reports None Capillary refill Patient's skin is warm and dry. Respiratory: Reports shortness of breath at rest on exertion Airway is patent Respiratory effort is labored, Respiratory pattern is regular, symmetrical, Breath sounds are clear bilaterally. GI: No deficits noted. No signs and/or symptoms were reported involving the gastrointestinal system. Abdomen is round non-distended. : No deficits noted. No signs and/or symptoms were reported regarding the genitourinary system. EENT: No deficits noted. No signs and/or symptoms were reported regarding the EENT system. Derm: No deficits noted. Skin is intact, Skin is dry, Skin is pink, warm \T\ dry. normal. Musculoskeletal: No deficits noted. No signs and/or symptoms reported regarding the musculoskeletal system. 23:21 Cardiovascular: Rhythm is [facility] 06/26 00:40 Reassessment: pt destating on 100% with BIPAP spo2 86-87%. MD aware. RT aware. awaiting 12 ABG results. 01:18 Reassessment: Pt intubated. ETT tube 24 at the lip. NG tube inserted. PEEP 7. Fio2 80%. 12 04:55 Reassessment: NURSE TO NURSE REPORT GIVEN TO MIKE. ha1 05:30 Reassessment: 350 ML yellow urine drained from the navarro bag. [facility] Vital Signs: 06/25 19:21 BP 129 / 88; Pulse 99; Resp 24; Temp 98.2(O); Pulse Ox 93% on 6 lpm NC; Weight 112.94 ha1 kg; Height 5 ft. 8 in. ; 19:48 BP 138 / 76; Pulse 96; Resp 16; Temp 98.3; Pulse Ox 91% ; ts3 20:00 BP 119 / 76; Pulse 95; Resp 20; Pulse Ox 97% on 5 lpm NC; ss12 21:30 BP 129 / 67; Pulse 89; Resp 16; Pulse Ox 95% ; ss12 21:45 BP 129 / 67; Pulse 89; Resp 12; Pulse Ox 86% on 6 lpm NC; ss12 22:15 BP 129 / 79; Pulse 97; Resp 16; Pulse Ox 95% on R/A; ss12 23:15 BP 130 / 60; Pulse 91; Resp 16; Pulse Ox 94% on bipap; FiO2 100 %; 12 06/26 00:30 BP 162 / 82; Pulse 93; Resp 16; Pulse Ox 91% ; FiO2 100 %; ss12 01:00 BP 118 / 65; Pulse 88; Resp 16; Pulse Ox 87% on BIPAP; FiO2 100 %; ss12 01:15 BP 151 / 106; Pulse 98; Resp 16; Pulse Ox 100% ; ss12 01:40 BP 172 / 100; Pulse 99; Resp 16; Pulse Ox 100% on intubated. PEEP 7; ss12 02:00 BP 159 / 96; Pulse 94; Resp 16; Pulse Ox 100% on ventilator PEEP 7; ss12 02:15 BP 162 / 93; Pulse 98; Resp 16; Pulse Ox 100% on Ventilator PEEP 7 [id number]; ss12 02:30 BP 136 / 84; Pulse 82; Resp 16; Pulse Ox 100% on Ventilator PEEP 7 Fio2 80%; ss12 02:45 BP 93 / 65; Pulse 93; Resp 16; Pulse Ox 100% on ventilator PEEP 7 Fio2 80%; ss12 03:00 BP 74 / 54; Pulse 92; Resp 16; Pulse Ox 100% on On ventilator, PEEP 7, Fio2 80%; ss12 03:15 BP 83 / 50; Pulse 89; Resp 16; Pulse Ox 97% on On Ventilator PEEP 7 Fio2 80%; ss12 03:30 BP 187 / 109; Pulse 74; Resp 16; Pulse Ox 97% on on ventilator PEEP, FIO2 80%; 12 03:58 BP 172 / 96; Pulse 90; Resp 16; Pulse Ox 100% on ventilator PEEP 5, FIO2 50%; 12 04:15 BP 156 / 90; Pulse 95; Resp 16; Pulse Ox 97% on on ventilor PEEP 5 , Fio2 40%; 12 05:15 BP 111 / 67; Pulse 82; Resp 16; Pulse Ox 100% on on ventilator PEEP 5 Fio2 40%; 12 05:30 BP 121 / 68; Pulse 81; Resp 16; Pulse Ox 100% on ventilator PEEP 5 o2 40%; 12 06/25 19:21 Body Mass Index 37.86 (112.94 kg, 172.72 cm) ha1 Alivia Coma Score: 04:02 Eye Response: spontaneous(4). Motor Response: obeys commands(6). Verbal Response: sp4 oriented(5). Total: 15. ED Course: 06/25 19:21 Patient arrived in ED. gm2 19:22 Marquise Sen MD is Attending Physician. sp4 19:23 Maintain EMS IV. Dressing intact. Site clean \T\ dry. Gauge \T\ site: 20 gauge in Left AC. ts 3 Flushed with 10 mL NS. 19:39 Triage completed. ha1 20:07 Lydia Freeman, RN is Primary Nurse. ss12 23:15 Arm band placed on right wrist. ss12 23:16 Patient has correct armband on for positive identification. Provided Education on: plan ss12 of care. 06/26 00:28 CT Chest, Abdomen, Pelvis - W/Contrast In Process Unspecified. EDMS 01:16 Assisted provider with intubation using 8.0 mm ETT via oral route. ET tube secured at ha1 24cm at the teeth. Set up intubation tray. Intubated by Marquise Sen MD Placement verified by CO2 detector w/ + color change, auscultating bilateral breath sounds, End-tidal CO2 montioring CXR, Patient tolerated well. 02:00 Navarro cath inserted, using sterile technique, 16 Fr., by ED staff, balloon inflated, to ha1 gravity drainage, urine specimen collected. returned clear yellow urine. Patient tolerated well. 02:46 Chest Single View XRAY In Process Unspecified. EDMS 03:54 Luis Alberto Perez MD is Hospitalizing Provider. sp4 04:24 Chest Single View XRAY Sent. ss12 04:31 Chest Single View XRAY In Process Unspecified. EDMS 06:00 Patient admitted, IV remains in place. 12 Administered Medications: 06/25 19:20 Drug: Ondansetron IVP 4 mg IVP once; over 2 minutes Route: IVP; Site: left antecubital; 12 19:20 Drug: Diazepam IVP 5 mg IVP once Route: IVP; Site: left antecubital; 12 19:50 Drug: Solu-CORTEF IVP 100 mg IVP once Route: IVP; Site: left antecubital; 12 20:00 Follow up: Response: No adverse reaction 12 19:50 Drug: DuoNeb Nebulize (2.5 mg - 0.5 mg) 3 ml Nebulizer once Route: Nebulizer; ss12 20:20 Follow up: Response: No adverse reaction ss12 20:00 Drug: Cefepime IVPB 2 grams IVPB at 200 ml/hr once over 30 mins; (mix in NS 100 mL) 12 Route: IVPB; Rate: 200 ml/hr; Infused Over: 30 mins; Site: left antecubital; 20:30 Follow up: IV Status: Completed infusion; IV Intake: 100ml ss12 20:57 Drug: vancoMYCIN IVPB 2 grams IVPB at calculated rate once Route: IVPB; Rate: ss12 calculated rate; Site: left antecubital; 22:00 Follow up: IV Status: Completed infusion; IV Intake: 500ml 12 21:15 Drug: morphine IVP or IV 4 mg IVP once over 4 mins Route: IVP; Infused Over: 4 mins; 12 Site: left antecubital; 22:00 Drug: Naloxone IVP 1 mg IVP once Route: IVP; Site: left antecubital; 12 06/26 01:14 Drug: Etomidate IVP 20 mg IVP once Route: IVP; Site: left antecubital; 12 01:15 Drug: Rocuronium IVP 100 mg IVP once Route: IVP; Site: left antecubital; 12 01:28 Drug: Midazolam IVP or IV 0.01 mg/kg/h IV at calculated rate See Administration 12 Instructions; (Standard concentration: 100 mg / 100 mL NS); Recommended max rate 0.1 mg/kg/hr; Titrate 0.01 mg/kg/hr as often as every 30 minutes to achieve goal (see titration policy); Goal parameter RASS 0 to -2 Route: IV; Rate: calculated rate; Site: left antecubital; 01:50 Follow up: Rate change 0.02 ml/kg/hour 12 02:15 Drug: Midazolam IVP or IV 2 mg IVP once Route: IVP; Site: left antecubital; 12 02:30 Follow up: Response: No adverse reaction 12 02:26 Drug: Propofol IV 5 mcg/kg/min IV at calculated rate See Administration Instructions; 12 Standard concentration 1000 mg / 100 mL; Recommended max rate 50 mcg/kg/min; Titrate 5 mcg/kg/min every 5 minutes to achieve goal (see titration policy); Goal parameter RASS score 0 to -2 Route: IV; Rate: calculated rate; Site: right antecubital; 02:28 Follow up: Rate change 50 mcg/kg/min 12 02:26 Drug: Midazolam IVP or IV 2 mg IVP once Route: IVP; Site: left antecubital; 12 03:00 Follow up: Response: No adverse reaction 12 02:54 Drug: Midazolam IVP or IV 5 mg IVP once Route: IVP; Site: left antecubital; 12 03:15 Follow up: Response: No adverse reaction 12 03:00 Drug: fentaNYL (PF) IV 25 mcg/kg/h IV at calculated rate See Administration ss12 Instructions; (Standard concentration 500 mcg / 50 mL NS [10 mcg / 1 mL); Recommended max rate 4 mcg/kg/hr; Titrate 0.25 mcg/kg/hr as often as every 3 minutes to achieve goal (see titration policy); Goal parameter RASS score 0 to -2 Route: IV; Rate: calculated rate; Site: Other; 03:00 Drug: fentaNYL (PF) IVP 100 mcg IVP once Route: IVP; Site: Other; [facility] 03:06 Drug: NS 0.9% IV 1000 ml IV at 1000 ml once; to be given as a bolus over 60 minutes ss12 Route: IV; Rate: 1000 ml; Site: right antecubital; 04:00 Follow up: IV Status: Completed infusion; IV Intake: 1000ml 12 03:10 Drug: Norepinephrine IV 0.1 mcg/kg/min IV at calculated rate See Administration ss12 Instructions; (Standard concentration 4 mg / 250 mL D5W); Recommended max rate 3 mcg/kg/min; Titrate 0.05 mcg/kg/min as often as every 5 minutes to achieve goal (see titration policy); Goal parameter MAP greater than 65 mmHg. Route: IV; Rate: calculated rate; Site: Other; 03:10 Follow up: Rate change 0.1 mcg/kg/min ss12 03:15 Follow up: Rate change 0.15 mcg/kg/min ss12 03:45 Follow up: Rate change 0.02 mcg/kg/min ss12 04:25 Follow up: Rate change 0.01 mcg/kg/min ss12 05:00 Follow up: Response: No adverse reaction; IV Status: Infusion continued upon admission ha1 04:45 Drug: Albumin IVPB 25 grams 100 ml IVPB once; (Note: Albumin 25% concentration) Volume: ss12 100 ml; Route: IVPB; Site: Other; 05:00 Follow up: IV Status: Completed infusion; IV Intake: 50ml ss12 05:30 Follow up: IV Status: Completed infusion; IV Intake: 50ml ss12 Medication: 06/25 23:15 VIS not applicable for this client. ss12 Intake: 20:30 IV: 100ml; Total: 100ml. ss12 22:00 IV: 500ml; Total: 600ml. ss12 10/05 04:00 IV: 1000ml; Total: 1600ml. 12 05:00 IV: 50ml; Total: 1650ml. 12 05:30 IV: 50ml; Total: 1700ml. [facility] Outcome: 03:58 Decision to Hospitalize by Provider. sp4 06:16 Admitted to ICU accompanied by nurse, accompanied by tech, via stretcher, room 3, with 12 oxygen, on monitor, Other RT present 06:16 Condition: stable 06:17 Patient left the ED. [facility] Signatures: Dispatcher [employer] EDMS Jazz Proctor RN RN ha1 Marquise Sen MD MD sp4 Radha Abdi gm2 Luz Elena Chou ts3 Lydia Freeman RN RN 12 Corrections: (The following items were deleted from the chart) 06/25 19:39 19:21 Chief complaint: EMS states: SHORTNESS OF BREATH FOR THE PAST TWO DAYS, WHEEZING. ha1 OXYGEN SATURATION 89% ON ROOM AIR. NEIL [facility]IN FROM [facility] ha1 23:21 23:16 Home Meds: IRON; [place] [id number] 06/26 00:59 00:57 BP 162 / 82; Pulse 93bpm; Resp 16bpm; Pulse Ox 91% FiO2 100%; [place] [address] 04:12 03:36 BP 159 / 96; Pulse 94bpm; Resp 16bpm; Pulse Ox 100% ventilator PEEP 7; [place] [address] 05:29 03:58 BP 172 / 96; Pulse 90bpm; Resp 16bpm; Pulse Ox 100% ventilator PEEP 7, FIO2 80%; [place] [address] 05:29 04:15 BP 156 / 90; Pulse 95bpm; Resp 16bpm; Pulse Ox 97% on ventilor PEEP 5.3 , Fio2; [place] [address] 06:10 06:06 Reassessment: 350 ML yellow urine drained from the navarro bag [place] [id number] 06/27 03:53 06/25 23:21 No provider procedures requiring assistance completed. [facility] ha1
--- NOTE | 2025-06-26 03:58 | EDPHYS ---
Physician Documentation [facility] Name: Jose Elias Lunsford Age: 79 yrs Sex: Male : 1945 Arrival Date: 06/25/2025 Time: 19:18 Bed 15 Private MD: ED Physician Marquise Sen HPI: 06/26 00:43 This 79 yrs old Male presents to ER via EMS with complaints of Shortness Of sp4 Breath. 04:01 79-year-old male with extensive past medical history, including severe right hip sp4 osteoarthritis and history of prolonged immobilization presents from senior living with acute respiratory distress. Reports moderate to severe hypoxemia associated with respiratory difficulty.. 04:02 Associated symptoms include diffuse wheezing.. sp4 Historical: - Allergies: 06/25 19:39 No Known Allergies; ha1 - Home Meds: 23:16 acetaminophen-codeine 300 mg-30 mg /12.5 mL Oral solution every 6 hours [Active]; ss12 albuterol sulfate 90 mcg/actuation Inhl Aerosol Powder every 6 hours [Active]; apixaban Oral [Active]; Dexamethasone Oral [Active]; Eliquis 2.5 mg Oral tablet every 12 hours [Active]; fluconazole Oral [Active]; furosemide 40 mg Oral tablet daily [Active]; IRON [Active]; loperamide Oral [Active]; Melatonin Oral [Active]; methocarbamol 750 mg Oral tablet 3 times per day [Active]; metoprolol tartrate 25 mg Oral tablet 2 times per day [Active]; Naproxen Oral [Active]; Nystatin Oral [Active]; Ondansetron Oral [Active]; OMEGA-2 [Active]; Prednisolone Oral [Active]; sennosides Oral [Active]; quetiapine 25 mg Oral tablet every day at bedtime [Active]; Triamterene-Hydrochlorothiazid Oral [Active]; - PMHx: 19:39 Anxiety; colon CA with chemo; depressive disorder; Hypertensive disorder; ibs; ha1 - PSHx: 19:39 colon resection; ha1 - Immunization history:: Adult Immunizations not up to date. - Infectious Disease History:: Denies. - Family history:: not pertinent. - Social history:: Smoking status: Patient denies any tobacco usage or history of. ROS: 06/26 04:02 Constitutional: Negative for fever, chills, and weight loss, positive for dyspnea, sp4 positive for cough, positive for wheezing, positive for respiratory distress All other systems are negative, Exam: 04:02 Constitutional: alert, patient is frail elderly male, signs of prolonged sp4 immobilization, severe physical debility, permanent contractures of the right lower extremity, moderate obesity, acute respiratory distress, wheezing on arrival, hypoxemic, ill-appearing, toxic appearing Head/Face: Normocephalic, atraumatic. Eyes: Pupils equal round and reactive to light, extra-ocular motions intact. Lids and lashes normal. Conjunctiva and sclera are not injected. Cornea within normal limits. Periorbital areas with no swelling, redness, or edema. ENT: Nares patent. No nasal discharge, no septal abnormalities noted. Tympanic membranes are normal and external auditory canals are clear. Oropharynx with no redness, swelling, or masses, exudates, or evidence of obstruction, uvula midline. Mucous membranes moist. Neck: Trachea midline, no thyromegaly or masses palpated, and no cervical lymphadenopathy. Supple, full range of motion without nuchal rigidity, or vertebral point tenderness. Chest/axilla: Normal chest wall appearance and motion. Nontender with no deformity. No lesions are appreciated. Cardiovascular: Regular rate and rhythm with a normal S1 and S2. No gallops, murmurs, or rubs. No pulse deficits. Respiratory: Lungs have equal breath sounds bilaterally, diffuse expiratory wheezing on exam. Dyspnea, tachypnea, moderate retractions Abdomen/GI: Soft, with normal bowel sounds. No distension or tympany. No guarding or rebound. No evidence of tenderness throughout. Back: No spinal tenderness. No costovertebral tenderness. Male : Normal genitalia with no discharge or lesions. Incontinence of bladder. Skin: Warm, dry with normal turgor. Normal color with no rashes, no lesions, and no evidence of cellulitis. MS/ Extremity: Pulses equal, no cyanosis. Neurovascular intact. Signs of prolonged immobility, and diffuse muscular atrophy of both lower extremities, contractures of the right lower extremity, and nonambulatory. Neuro: Awake and alert, GCS 15, oriented to person, place, time, and situation. Cranial nerves II-XII grossly intact. Motor strength 5/5 in all extremities. Sensory grossly intact. Psych: Awake, alert, with orientation to person, place and time. Behavior, mood, and affect are within normal limits 04:02 ECG was reviewed by the Attending Physician. EKG at 1941 reveals sinus tachycardia with multiple PVCs, multifocal PVCs, sinus tachycardia at rate of 103. Vital Signs: 06/25 19:21 BP 129 / 88; Pulse 99; Resp 24; Temp 98.2(O); Pulse Ox 93% on 6 lpm NC; Weight 112.94 ha1 kg; Height 5 ft. 8 in. ; 19:48 BP 138 / 76; Pulse 96; Resp 16; Temp 98.3; Pulse Ox 91% ; ts3 20:00 BP 119 / 76; Pulse 95; Resp 20; Pulse Ox 97% on 5 lpm NC; ss12 21:30 BP 129 / 67; Pulse 89; Resp 16; Pulse Ox 95% ; ss12 21:45 BP 129 / 67; Pulse 89; Resp 12; Pulse Ox 86% on 6 lpm NC; ss12 22:15 BP 129 / 79; Pulse 97; Resp 16; Pulse Ox 95% on R/A; ss12 23:15 BP 130 / 60; Pulse 91; Resp 16; Pulse Ox 94% on bipap; FiO2 100 %; ss12 10 00:30 BP 162 / 82; Pulse 93; Resp 16; Pulse Ox 91% ; FiO2 100 %; ss12 01:00 BP 118 / 65; Pulse 88; Resp 16; Pulse Ox 87% on BIPAP; FiO2 100 %; 12 01:15 BP 151 / 106; Pulse 98; Resp 16; Pulse Ox 100% ; 12 01:40 BP 172 / 100; Pulse 99; Resp 16; Pulse Ox 100% on intubated. PEEP 7; ss12 02:00 BP 159 / 96; Pulse 94; Resp 16; Pulse Ox 100% on ventilator PEEP 7; ss12 02:15 BP 162 / 93; Pulse 98; Resp 16; Pulse Ox 100% on Ventilator PEEP 7 [id number]; ss12 02:30 BP 136 / 84; Pulse 82; Resp 16; Pulse Ox 100% on Ventilator PEEP 7 Fio2 80%; ss12 02:45 BP 93 / 65; Pulse 93; Resp 16; Pulse Ox 100% on ventilator PEEP 7 Fio2 80%; 12 03:00 BP 74 / 54; Pulse 92; Resp 16; Pulse Ox 100% on On ventilator, PEEP 7, Fio2 80%; 12 03:15 BP 83 / 50; Pulse 89; Resp 16; Pulse Ox 97% on On Ventilator PEEP 7 Fio2 80%; ss12 03:30 BP 187 / 109; Pulse 74; Resp 16; Pulse Ox 97% on on ventilator PEEP, FIO2 80%; ss12 03:58 BP 172 / 96; Pulse 90; Resp 16; Pulse Ox 100% on ventilator PEEP 5, FIO2 50%; ss12 04:15 BP 156 / 90; Pulse 95; Resp 16; Pulse Ox 97% on on ventilor PEEP 5 , Fio2 40%; 12 05:15 BP 111 / 67; Pulse 82; Resp 16; Pulse Ox 100% on on ventilator PEEP 5 Fio2 40%; 12 05:30 BP 121 / 68; Pulse 81; Resp 16; Pulse Ox 100% on ventilator PEEP 5 o2 40%; ss12 06/25 19:21 Body Mass Index 37.86 (112.94 kg, 172.72 cm) ha1 Alivia Coma Score: 04:02 Eye Response: spontaneous(4). Motor Response: obeys commands(6). Verbal Response: sp4 oriented(5). Total: 15. Procedures: 01:37 Intubation: Ventilated with 100% NRB prior to procedure. O2 saturation prior to sp4 procedure was 96 %. Intubated Intubation with glide scope using S 4 Glyde scope blade with 8.0 mm ETT. was successful on first attempt. Ventilated with Ambu bag. ventilator. Tube secured with ETT beard at center of mouth measured 24 cm at lip. Placement verified by CXR, CO2 detector with (+) color change, auscultating bilateral breath sounds, O2 saturation after procedure was 100 %. Patient tolerated well, Patient intubated for airway protection also for rising pCO2 level. 03:46 Central Line: the site was prepped with Betadine, in sterile fashion, a triple lumen sp4 catheter was inserted, in the left internal jugular vein, in 1 attempts. placement was verified, by CXR, by blood return, Ultrasound-guided central line placement, the site was dressed with 4X4s, Tegaderm, using sterile technique, the patient tolerated the procedure, well, Left triple-lumen internal jugular line placed for fluid resuscitation. And for pressor administration. MDM: 06/25 19:24 Medical Screening Exam initiated sp4 06/26 01:58 ED course: FINDINGS: CHEST: HEART: Normal in size. Multivessel coronary arterial sp4 calcifications. No pericardial effusion or thickening. AORTA: Scattered atherosclerosis throughout the thoracic aorta without aneurysmal dilatation. ADENOPATHY: No pathologic intrathoracic or axillary adenopathy. LUNGS: Consolidative opacity throughout the majority of the right lower lobe as well as within the posterior right upper lobe, medial left upper lobe, lingula and medial and basilar left lower lobe. No pleural effusion or pneumothorax. ABDOMEN / PELVIS: LIVER: Unremarkable. SPLEEN: Unremarkable. PANCREAS: Unremarkable. ADRENALS: Nonspecific thickening of the left adrenal gland. Right adrenal gland is unremarkable. KIDNEYS: Unremarkable. GALLBLADDER: Surgically absent. VESSELS: Scattered atherosclerotic plaque within the abdominal aorta and iliac vessels without aneurysmal dilatation. IVC filter noted. BOWEL: Postsurgical changes of the rectosigmoid colon. Mild gaseous distention of the colon. No bowel obstruction. APPENDIX: Normal. FLUID: No free fluid or abnormal fluid collection. ADENOPATHY: No pathologic adenopathy. BLADDER: Unremarkable. PELVIS: Prostate is normal in size. BONES: No acute bony abnormality. Multilevel degenerative changes throughout the spine. Severe degenerative changes of the shoulders. SOFT TISSUES: Nonspecific body wall edema within the lateral abdominal pemberton. IMPRESSION: 1. Multifocal multilobar pneumonia. 2. No acute abdominopelvic findings. . 03:53 ED course: CT revealed - LUNGS: Consolidative opacity throughout the majority of the sp4 right lower lobe as well as within the posterior right upper lobe, medial left upper lobe, lingula and medial and basilar left lower lobe. No pleural effusion or pneumothorax. . ED course: Sepsis reevaluation complete. Full septic fluid bolus 30 mL per kilogram cannot be given secondary to concern for volume overload . Patient was given IV albumin and 1 L bolus. Stable for admission to ICU. Airway protection accomplished via intubation. Central line placed for exhausted vascular access.. 04:06 Differential diagnosis: Anemia Anxiety Reaction asthma, Bronchitis CHF exacerbation, sp4 Chronic Obstructive Pulmonary Disease Myocardial Infarction pneumonia, Pneumothorax Psychogenic pulmonary edema. Antibiotic administration: The patient is for pseudomonal infection, Vancomycin and cefepime., Vancomycin and cefepime administered. Data reviewed: vital signs, nurses notes, EMS record, old medical records, lab test result(s), EKG, radiologic studies, CT scan, plain films. Consideration of Admission/Observation Escalation of care including admission/observation considered. 04:07 ED course: Procedure description: XR CHEST 1 VIEW CLINICAL INDICATION: intubation sp4 TECHNIQUE: Single view of the chest June 26, 2025 12:31 AM COMPARISON: None. FINDINGS: Inspiratory volume is very poor. The lungs appear grossly clear of consolidation. No pulmonary edema or obvious effusions. Endotracheal tube above the javed. NG tube within the stomach. Severe bilateral shoulder arthritis. IMPRESSION: No acute chest finding. Limited inspiratory volume. 05:08 ED course: TECHNIQUE: 1 view X-ray of the chest was performed. FINDINGS: Support sp4 Devices: Left IJ central venous catheter tip at the brachial cephalic SVC junction is new from previous exam. No pneumothorax. Stable positions of endotracheal tube and nasogastric tube compared to previous. Heart: Stable Mediastinum: Mediastinal contours are normal. Lungs: Low lung volumes. Osseous Structures: Visualized skeleton is normal. IMPRESSION: 1. Stable exam. Continued very low lung volumes. Now a central line in place. Continued intubation. 06/25 19:22 Order name: BNP; Complete Time: 20:50 sp4 06/25 19:22 Order name: Blood Culture Adult (2) sp4 06/25 19:22 Order name: CBC with Diff; Complete Time: 20:50 sp4 06/25 19:22 Order name: CMP; Complete Time: 20:50 sp4 06/25 19:22 Order name: Lactate w/ 2H reflex if indic.; Complete Time: 20:50 sp4 06/25 19:22 Order name: Protime (+inr); Complete Time: 20:50 sp4 06/25 19:22 Order name: Ptt, Activated; Complete Time: 20:50 sp4 06/25 19:22 Order name: Troponin HS; Complete Time: 20:50 sp4 06/25 19:22 Order name: ABG; Complete Time: 20:50 sp4 06/25 19:23 Order name: UA Rfx Zachary Cult if indicated sp4 06/25 19:24 Order name: CRP; Complete Time: 20:50 sp4 06/25 19:24 Order name: CK; Complete Time: 20:50 sp4 06/25 19:42 Order name: Glucose, Ancillary Testing; Complete Time: 20:50 EDMS 06/26 00:43 Order name: ABG; Complete Time: 01:06 sp4 06/26 04:34 Order name: ABG Arterial Blood Gas EDMS 06/26 04:34 Order name: ABG Arterial Blood Gas EDMS 06/26 04:44 Order name: CBC with Automated Diff EDMS 06/26 04:44 Order name: CBC with Automated Diff EDMS 06/26 04:44 Order name: CBC with Automated Diff EDMS 06/26 04:44 Order name: CBC with Automated Diff EDMS 06/26 04:44 Order name: Comprehensive Metabolic Panel EDMS 06/26 04:44 Order name: Comprehensive Metabolic Panel EDMS 06/26 04:44 Order name: Comprehensive Metabolic Panel EDMS 06/26 04:44 Order name: Comprehensive Metabolic Panel EDMS 06/26 04:44 Order name: Magnesium EDMS 06/26 04:44 Order name: Magnesium EDMS 06/26 04:44 Order name: Magnesium EDMS 06/26 04:44 Order name: Magnesium EDMS 06/26 04:44 Order name: Phosphorus EDMS 06/26 04:44 Order name: Phosphorus EDMS 06/26 04:44 Order name: Phosphorus EDMS 06/26 04:44 Order name: Phosphorus EDMS 06/26 04:48 Order name: Lipid Profile EDMS 06/26 04:48 Order name: Lipid Profile EDMS 06/25 19:23 Order name: CT Chest, Abdomen, Pelvis - W/Contrast sp4 06/25 20:43 Order name: BIPAP sp4 06/26 01:57 Order name: Chest Single View XRAY sp4 06/26 03:43 Order name: Chest Single View XRAY sp4 06/26 04:34 Order name: Abdomen 1 View (KUB) EDMS 06/26 04:34 Order name: Chest Single View EDMS 06/26 04:34 Order name: Chest Single View EDMS 06/26 04:34 Order name: Respiratory Therapy Consult EDMS 06/25 19:22 Order name: Accucheck; Complete Time: 19:32 sp4 06/25 19:22 Order name: Cardiac monitoring; Complete Time: 19:47 sp4 06/25 19:22 Order name: EKG - Nurse/Tech; Complete Time: 19:47 sp4 06/25 19:22 Order name: IV Saline Lock - Large Bore; Complete Time: 19:32 sp4 06/25 19:22 Order name: Labs collected and sent; Complete Time: 19:47 sp4 06/25 19:22 Order name: O2 Per Protocol; Complete Time: 19:47 sp4 06/25 19:22 Order name: O2 Sat Monitoring; Complete Time: 19:32 sp4 06/25 19:22 Order name: Vital Signs; Complete Time: 19:47 sp4 06/26 01:09 Order name: Central Line Dressing Kit sp4 06/26 01:09 Order name: Central Line Kit sp4 06/26 01:09 Order name: Chlorhexidine prep sp4 06/26 01:09 Order name: Consent for central line completed sp4 06/26 01:09 Order name: Line Caps x3 sp4 06/26 01:09 Order name: NS Flushes x3 sp4 06/26 01:09 Order name: Sterile Gloves sp4 06/26 01:09 Order name: Sterile Probe Cover sp4 06/26 01:10 Order name: Intubation Setup; Complete Time: 01:20 sp4 EC/04 19:41 Rate is 103 beats/min. Rhythm is irregular, Sinus tachycardia with Multifocal PVCs. QRS sp4 Roll[place] is Normal. NV interval is normal. QRS interval is normal. QT interval is normal. No Q waves. T waves are Normal. No ST changes noted. Clinical impression: No evidence of ischemia. Interpreted by me. Reviewed by me. Administered Medications: 19:20 Drug: Ondansetron IVP 4 mg IVP once; over 2 minutes Route: IVP; Site: left antecubital; 12 19:20 Drug: Diazepam IVP 5 mg IVP once Route: IVP; Site: left antecubital; 12 19:50 Drug: Solu-CORTEF IVP 100 mg IVP once Route: IVP; Site: left antecubital; 12 20:00 Follow up: Response: No adverse reaction 12 19:50 Drug: DuoNeb Nebulize (2.5 mg - 0.5 mg) 3 ml Nebulizer once Route: Nebulizer; 12 20:20 Follow up: Response: No adverse reaction 12 20:00 Drug: Cefepime IVPB 2 grams IVPB at 200 ml/hr once over 30 mins; (mix in NS 100 mL) ss12 Route: IVPB; Rate: 200 ml/hr; Infused Over: 30 mins; Site: left antecubital; 20:30 Follow up: IV Status: Completed infusion; IV Intake: 100ml ss12 20:57 Drug: vancoMYCIN IVPB 2 grams IVPB at calculated rate once Route: IVPB; Rate: ss12 calculated rate; Site: left antecubital; 22:00 Follow up: IV Status: Completed infusion; IV Intake: 500ml [facility] 21:15 Drug: morphine IVP or IV 4 mg IVP once over 4 mins Route: IVP; Infused Over: 4 mins; 12 Site: left antecubital; 22:00 Drug: Naloxone IVP 1 mg IVP once Route: IVP; Site: left antecubital; 12 06/26 01:14 Drug: Etomidate IVP 20 mg IVP once Route: IVP; Site: left antecubital; 12 01:15 Drug: Rocuronium IVP 100 mg IVP once Route: IVP; Site: left antecubital; 12 01:28 Drug: Midazolam IVP or IV 0.01 mg/kg/h IV at calculated rate See Administration 12 Instructions; (Standard concentration: 100 mg / 100 mL NS); Recommended max rate 0.1 mg/kg/hr; Titrate 0.01 mg/kg/hr as often as every 30 minutes to achieve goal (see titration policy); Goal parameter RASS 0 to -2 Route: IV; Rate: calculated rate; Site: left antecubital; 01:50 Follow up: Rate change 0.02 ml/kg/hour 12 02:15 Drug: Midazolam IVP or IV 2 mg IVP once Route: IVP; Site: left antecubital; 12 02:30 Follow up: Response: No adverse reaction [facility] 02:26 Drug: Propofol IV 5 mcg/kg/min IV at calculated rate See Administration Instructions; 12 Standard concentration 1000 mg / 100 mL; Recommended max rate 50 mcg/kg/min; Titrate 5 mcg/kg/min every 5 minutes to achieve goal (see titration policy); Goal parameter RASS score 0 to -2 Route: IV; Rate: calculated rate; Site: right antecubital; 02:28 Follow up: Rate change 50 mcg/kg/min 12 02:26 Drug: Midazolam IVP or IV 2 mg IVP once Route: IVP; Site: left antecubital; 12 03:00 Follow up: Response: No adverse reaction [facility] 02:54 Drug: Midazolam IVP or IV 5 mg IVP once Route: IVP; Site: left antecubital; 12 03:15 Follow up: Response: No adverse reaction [facility] 03:00 Drug: fentaNYL (PF) IV 25 mcg/kg/h IV at calculated rate See Administration ss12 Instructions; (Standard concentration 500 mcg / 50 mL NS [10 mcg / 1 mL); Recommended max rate 4 mcg/kg/hr; Titrate 0.25 mcg/kg/hr as often as every 3 minutes to achieve goal (see titration policy); Goal parameter RASS score 0 to -2 Route: IV; Rate: calculated rate; Site: Other; 03:00 Drug: fentaNYL (PF) IVP 100 mcg IVP once Route: IVP; Site: Other; [facility] 03:06 Drug: NS 0.9% IV 1000 ml IV at 1000 ml once; to be given as a bolus over 60 minutes 12 Route: IV; Rate: 1000 ml; Site: right antecubital; 04:00 Follow up: IV Status: Completed infusion; IV Intake: 1000ml [facility] 03:10 Drug: Norepinephrine IV 0.1 mcg/kg/min IV at calculated rate See Administration ss12 Instructions; (Standard concentration 4 mg / 250 mL D5W); Recommended max rate 3 mcg/kg/min; Titrate 0.05 mcg/kg/min as often as every 5 minutes to achieve goal (see titration policy); Goal parameter MAP greater than 65 mmHg. Route: IV; Rate: calculated rate; Site: Other; 03:10 Follow up: Rate change 0.1 mcg/kg/min 12 03:15 Follow up: Rate change 0.15 mcg/kg/min 12 03:45 Follow up: Rate change 0.02 mcg/kg/min 12 04:25 Follow up: Rate change 0.01 mcg/kg/min 12 05:00 Follow up: Response: No adverse reaction; IV Status: Infusion continued upon admission ha1 04:45 Drug: Albumin IVPB 25 grams 100 ml IVPB once; (Note: Albumin 25% concentration) Volume: ss12 100 ml; Route: IVPB; Site: Other; 05:00 Follow up: IV Status: Completed infusion; IV Intake: 50ml ss12 05:30 Follow up: IV Status: Completed infusion; IV Intake: 50ml ss12 Disposition: 01:39 Critical Care:. sp4 06/27 01:46 Chart complete. sp4 Disposition Summary: 06/26/25 03:58 Hospitalization Ordered Notes: Hospitalization Status: Inpatient Admission sp4 Provider: Luis Alberto Perez sp4 Location: Intensive Care Unit sp4 Condition: Critical sp4 Problem: new sp4 Symptoms: have improved sp4 Bed/Room Type: Standard sp4 Room Assignment: 3-(06/26/25 04:33) kl Diagnosis - Other pneumonia, unspecified organism sp4 - Multifocal pneumonia, acute respiratory failure with hypercarbia, sepsis with sp4 septic shock, exhausted vascular access - Complications of immobility sp4 - Severe sepsis with septic shock sp4 Forms: - Medication Reconciliation Form sp4 - SBAR form sp4 - Leadership Thank You Letter sp4 Critical care time excluding procedures: 06/26 01:39 Critical care time: Bedside Care: 46 minutes, Consultation: 12 minutes, Family sp4 Intervention: 12 minutes. Total time: 70 minutes Signatures: Dispatcher [employer] EDQiana Keith RN RN kl Ayala, Heidy RN RN ha1 Marquise Sen MD MD 4 Lydia Freeman RN RN 12 Corrections: (The following items were deleted from the chart) 06/25 19:23 19:23 Chest Abdomen Pelvis W Con+CT.[email or web address].BRZ ordered. EDOH EDMS 23:21 23:16 Home Meds: IRON; ss12 ss12 06/26 01:58 01:58 Chest Single View+RAD.RAD.BRZ ordered. EDMS EDMS 04:33 03:58 sp4 kl
--- NOTE | 2025-06-26 04:33 | RAD REPORT ---
Procedure description: XR CHEST 1 VIEW CLINICAL INDICATION: intubation TECHNIQUE: Single view of the chest June 26, 2025 12:31 AM COMPARISON: None. FINDINGS: Inspiratory volume is very poor. The lungs appear grossly clear of consolidation. No pulmon nimisha edema or obvious effusions. Endotracheal tube above the javed. NG tube within the stomach. Severe bilateral shoulder arthritis. IMPRESSION: No acute chest finding. Limited inspiratory volume. Electronically signed by: Collin Costa MD 06/26/2025 02:55 AM CDT Due to temporary technical issues with the PACS/iChange reporting system, reports are being zelalem d by the in-house radiologist without review as a courtesy to ensure prompt reporting the interpreting radiologist is fully responsible for the content of the report. Transcribed Date/Time: 06/26/2025 4:33 AM
[2025-06-26] MEDS ORDERED: ONDANSETRON 4 MG/2 ML VIAL IV PRN (04:38)
[2025-06-26] MEDS ORDERED: ALBUMIN HUMAN 25% 100 ML IV ONE (04:39)
--- NOTE | 2025-06-26 04:49 | P.HP ---
Certification for Inpatient Patient admitted to: Inpatient With expected LOS: >2 Midnights Patient will require the following post-hospital care: [facility] Practitioner: I am a practitioner with admitting privileges, knowledge of patient current condition, hospital course, and medical plan of care. Services: Services provided to patient in accordance with Admission requirements found in Title 42 Section 412.3 of the Code of Federal Regulations <Tom Nelson - Last Filed: 06/26/25 05:11> Patient History Date of Service: 06/26/25 Reason for admission: Multifocal pneumonia. History of Present Illness: Patient is a 79-year-old male , who is a [facility] at the [facility], past medical history anxiety, colon cancer on chemotherapy, depressive disorder, hypertension, atrial fibrillation, transferred to the ER today due to worsening shortness of breath and respiratory distress. Upon arrival to ER, patient was in respiratory distress, and was placed on BiPAP. Patient initial blood gas done in ER had a pH 7.41, pCO2 63, and repeat blood gas pH was 7.22, and pCO2 96, based on patient current pCO2, and worsening respiratory condition, patient was then intubated. After patient was intubated, he was started on Levophed, propofol infusion, and Versed infusion. Patient has a Summers catheter. On admission assessment, patient lungs bilateral with no adventitious breath sounds. No further history could be obtained from the patient because he is intubated, so my H&P is based on report received from the ER Dr. Sen, and from patient EMR. Course in ER. (1) CT chest, abdomen, and pelvis. Impression; (a) multifocal multilobar pneumonia. (b) no acute abdominal pelvic findings. (2) chest x-ray 1 view. Impression: No acute chest findings. Limited inspiratory volume. - Past Medical/Surgical History Diabetic: No -: Stage 2 Colon cancer on chemo -: Insulin Dependent Type 2 Diabetes -: right ankle 1987 -: Bowel Resection -: Exploratory lap -: Idaz Cath insertion -: Cholecystectomy Psychosocial/ Personal History: Patient lives at home alone. He has home health. - Social History Smoking Status: Unknown if ever smoked (Patient currently on ventilator) Alcohol use: No CD- Drugs: No Caffeine use: Yes Place of Residence: Shelter <Tom Nelson - Last Filed: 06/26/25 05:11> Date of Service: 06/26/25 <Johnny Sunshine - Last Filed: 06/26/25 14:03> Allergies No Known Allergies Allergy (Unverified 04/26/13 14:49) Home Medications: Acetaminophen 650 mg PO Q6H PRN 04/14/25 Apixaban [Eliquis *] 2.5 mg PO BID 04/14/25 Cyanocobalamin [Vitamin B-12*] 1,000 mcg PO DAILY 04/14/25 Duloxetine HCl 30 mg PO BEDTIME 04/14/25 Ergocalciferol (Vitamin D2) [Vitamin D2] 1,250 mcg PO SEECOM 04/14/25 Quetiapine Fumarate [Seroquel] 50 mg PO BEDTIME 04/14/25 Acetaminophen with Codeine [Tylenol with-Codeine #3 Tablet] 1 tab PO Q12H PRN 06/26/25 Furosemide 40 mg PO DAILY 06/26/25 Review of Systems is unable to be obtained (Patient currently on a ventilator.) <Tom Nelson - Last Filed: 06/26/25 05:11> Physical Examination - Vital Signs Pulse: 96 Pulse Ox (%): 99 - Physical Exam General: Other (Patient is current on a ventilator and sedated.) HEENT: Atraumatic, Normocephalic, PERRLA, Sclerae nonicteric Neck: Supple, 2+ carotid pulse no bruit, JVD not distended, No LAD, Without JVD or thyroid abnormality Respiratory: Clear to auscultation bilaterally, Normal air movement Cardiovascular: No edema, Normal pulses, Regular rate/rhythm, Normal S1 S2, No gallops, No rubs, No murmurs Capillary refill: <2 Seconds Gastrointestinal: Normal bowel sounds, Soft and benign, W/out hepatomegaly, No ascites, No masses, Distended (Secondary to obesity) Musculoskeletal: No clubbing, No swelling, No contractures, No erythema, No warmth Integumentary: No breakdown, No significant lesion, No warmth, No cyanosis, Oth er (Multiple bruised areas bilateral upper extremities.) Neurological: Other (Unable to assess patient is currently on a ventilator and sedated.) Lymphatics: No axilla or inguinal lymphadenopathy - Studies Laboratory Data (last 24 hrs) 06/25/25 06/25/25 06/25/25 19:15 19:15 19:15 WBC 9.40 Hgb 14.6 Hct 45.0 Plt Count 266 PT 12.9 INR 1.15 APTT 31.5 Sodium 139 Potassium 4.2 BUN 13 Creatinine 0.53 L Glucose 119 H Total Bilirubin 0.3 AST 17 ALT 20 Alkaline Phosphatase 79 <Tom Nelson - Last Filed: 06/26/25 05:11> - Studies Laboratory Data (last 24 hrs) 06/25/25 06/25/25 06/25/25 19:15 19:15 19:15 WBC 9.40 Hgb 14.6 Hct 45.0 Plt Count 266 PT 12.9 INR 1.15 APTT 31.5 Sodium 139 Potassium 4.2 BUN 13 Creatinine 0.53 L Glucose 119 H Total Bilirubin 0.3 AST 17 ALT 20 Alkaline Phosphatase 79 <Johnny Sunshine - Last Filed: 06/26/25 14:03> Male Exam - Male Exam Inguinal exam: No hernias <Tom Nelson - Last Filed: 06/26/25 05:11> Assessment and Plan - Plan Patient is a 79-year-old male brought to the ER by EMS from [facility] due to worsening shortness of breath, and respiratory distress. Patient was intubated in ER, and currently on ventilator. Patient is admitted for multimodal pneumonia with acute hypoxic respiratory failure. (1)Multifocal pneumonia, with acute hypoxic respiratory failure. Patient is current on the ventilator. -Started on Unasyn 3 g IV every 6 hours. Broad coverage. High possibility of community-acquired pneumonia. -Pepcid 20 mg IV twice daily. -Order ABG on Friday. -Midazolam infusion titrate. -Propofol infusion titrate. -Levophed infusion titrate. -Start on D5 half NS at 75ml/ hr. Patient is n.p.o. at this time. -DuoNeb neb treatment every 6 hours as needed. On admission assessment, patient lungs bilateral with no adventitious breath sounds at this time. -Blood culture. (2) chronic type 2 diabetes mellitus. -Order Accu-Chek every 6 hours with moderate sliding scale coverage. -Continue D5 half NS at 75 mL/ hr as noted above. Patient NPO. -Order A1c to evaluate patient diabetic status. Discharge Plan: Shelter Plan to discharge in: Greater than 2 days - Advance Directives Does patient have a Living Will: No Does patient have a Durable POA for Healthcare: No - Code Status/Comfort Care Code Status Assessed: No (On the ventilator.) Code Status: Full Code Critical Care: Yes Time Spent Managing Pts Care (In Minutes): 60 <Tom Nelson - Last Filed: 06/26/25 05:11> Date of Service: 06/26/25 Patient was seen and examined. Events of the last 24 hours have been noted. Spoke with with ABBY regarding patient's clinical picture after evaluating and examining the patient independently. I performed a substantial part of the MDM during this patient's care today. I personally made or approved the documented management plan and acknowledge its risk of complications. I agree with the findings and documentation provided in the ABBY's notes. <Johnny Sunshine - Last Filed: 06/26/25 14:03>
[2025-06-26] MEDS ORDERED: NOREPINEPHRINE 4 MG in D5W 250 ML IV SCH (05:00)
--- NOTE | 2025-06-26 05:19 | RAD REPORT ---
INDICATION: Chest and abdominal pain COMPARISON: CT chest abdomen pelvis May 17, 2022 TECHNIQUE: Enhanced CT of the chest, abdomen, and pelvis was performed per protocol. Multiplanar reconstructions were provided. Dose reduction techniques were utilized for this exam including automated exposure control, adjustmen ts to mA and/or kV according to patient's size, and the use of iterative reconstruction techniques. FINDINGS: CHEST: HEART: Normal in size. Multivessel coronary arterial calcifications. No pericardial effusion or thick ening. AORTA: Scattered atherosclerosis throughout the thoracic aorta without aneurysmal dilatation. ADENOPATHY: No pathologic intrathoracic or axillary adenopathy. LUNGS: Consolidative opacity throughout the majority of the right lower lobe as well as within the po sterior right upper lobe, medial left upper lobe, lingula and medial and basilar left lower lobe. No pleural effusion or pneumothorax. ABDOMEN / PELVIS: LIVER: Unremarkable. SPLEEN: Unremarkable. PANCREAS: Unremarkable. ADRENALS: Nonspecific thickening of the left adrenal gland. Right adrenal gland is unremarkable. KIDNEYS: Unremarkable. GALLBLADDER: Surgically absent. VESSELS: Scattered atherosclerotic plaque within the abdominal aorta and iliac vessels without aneury smal dilatation. IVC filter noted. BOWEL: Postsurgical changes of the rectosigmoid colon. Mild gaseous distention of the colon. No bowel obstruction. APPENDIX: Normal. FLUID: No free fluid or abnormal fluid collection. ADENOPATHY: No pathologic adenopathy. BLADDER: Unremarkable. PELVIS: Prostate is normal in size. BONES: No acute bony abnormality. Multilevel degenerative changes throughout the spine. Severe degene rative changes of the shoulders. SOFT TISSUES: Nonspecific body wall edema within the lateral abdominal pemberton. IMPRESSION: 1. Multifocal multilobar pneumonia. 2. No acute abdominopelvic findings. Electronically signed by: David Kendrick DO 06/26/2025 12:52 AM CDT NR Due to temporary technical issues with the PACS/[employer] reporting system, reports are being zelalem d by the in-house radiologist without review as a courtesy to ensure prompt reporting the interpreting radiologist is fully responsible for the content of the report. Transcribed Date/Time: 06/26/2025 5:18 AM
[2025-06-26 05:20] VITALS: BMI 37.8
--- NOTE | 2025-06-26 05:27 | RAD REPORT ---
EXAMINATION: XR CHEST 1 VIEW INDICATION: 79 years old Male 1945 Left central line. COMPARISON(S): XR Chest 06/26/2025 12:31:55 AM. TECHNIQUE: 1 view X-ray of the chest was performed. FINDINGS: Support Devices: Left IJ central venous catheter tip at the brachial cephalic SVC junction is new fro m previous exam. No pneumothorax. Stable positions of endotracheal tube and nasogastric tube compared to previous. Heart: Stable Mediastinum: Mediastinal contours are normal. Lungs: Low lung volumes. Osseous Structures: Visualized skeleton is normal. IMPRESSION: 1. Stable exam. Continued very low lung volumes. Now a central line in place. Continued intubation. Electronically signed by: Nikolai Ochoa MD 06/26/2025 04:50 AM CDT RP Due to temporary technical issues with the PACS/[employer] reporting system, reports are being zelalem d by the in-house radiologist without review as a courtesy to ensure prompt reporting the interpreting radiologist is fully responsible for the content of the report. Transcribed Date/Time: 06/26/2025 5:27 AM
[2025-06-26] MEDS: INSULIN REGULAR (HUMAN) 100 UNIT/ML SQ SCH (06:00)
[2025-06-26] MEDS: D5 0.45 NS 1,000 ML IV SCH ×2 (06:15→14:07)
[2025-06-26] MEDS: AMPICILLIN/SULBACT 3 GM in NA CHLORIDE 0.9% 100 ML IVPB SCH (06:16)
[2025-06-26] MEDS: MIDAZOLAM HCL 100 MG in NA CHLORIDE 0.9% 80 ML IV SCH (06:30)
[2025-06-26] MEDS ORDERED: FENTANYL CITR 100 MCG/2 ML IV PRN (06:43)
[2025-06-26 07:17] LABS: Sqamous Epithelial None Seen /HPF (None Seen); Urine Crystals Unidentified Few /HPF (None Seen); Urine Culture Reflex Order REFLEXED; Urine Microscopic Reflex YN ORDER UMIC; Urine Yeast (Budding) Trace /HPF (None Seen)
[2025-06-26] MEDS: ALBUTEROL 2.5 MG/3 ML NEB SOL NEB PRN (07:51)
[2025-06-26] MEDS: IPRATROPIUM BROM 0.5MG/2.5ML NEB PRN (07:51)
[2025-06-26] MEDS ORDERED: GLUCAGON 1 MG/VIAL IM PRN (08:20)
[2025-06-26] MEDS ORDERED: D50W 25 GM/50 ML SYRINGE IV PRN (08:20)
[2025-06-26] MEDS: ENOXAPARIN 40 MG/0.4 ML SQ SCH (08:21)
[2025-06-26] MEDS: FAMOTIDINE 20 MG/2 ML VIAL IV SCH (08:21)
[2025-06-26 11:22] LABS: Arterial Blood Carboxyhemoglob 0.8 % (0.0-1.5); Blood Gas Inspired Oxygen 35.0 %; Blood Gas Oxyhemoglobin 93.3 % (94.0-97.0); Blood O2 Saturation 95.4 % (92.0-98.5)
[2025-06-26 13:23] LABS: Base Excess, VBG 12.4 mmol/L (-2.0-3.0); HCO3, Venous Blood Gas 37.2 mmol/L (21.0-29.0); O2 Saturation, VBG 96.7 % (40.0-70.0); PCO2, Venous Blood Gas 60 mmHg (41-51); PH, Venous Blood Gas 7.40 (7.32-7.42); PO2, Venous Blood Gas 88 mmHg (25-40)
--- NOTE | 2025-06-26 14:06 | P.PN ---
Date of Service: 06/26/25 Subjective Patient awake and following commands. Spontaneous breathing trial pending. If patient does well and plan extubated. Will check ABGs before and after SBT. Physical Examination - Vital Signs Reviewed - Physical Exam General: Other (Patient is current on a ventilator and sedated.) patient is unkempt and disheveled HEENT: ET tube and OG tube remain in place Respiratory: Coarse bilaterally Cardiovascular: Regular rate/rhythm, Normal S1 S2, No gallops, No rubs, No murmurs Gastrointestinal: Normal bowel sounds, Soft and benign, W/out hepatomegaly, No ascites, No masses, Distended (Secondary to obesity) Musculoskeletal: No clubbing, No swelling, No contractures, No erythema, No warmth Integumentary: Onychomycosis; other (Multiple bruised areas bilateral upper extremities.) Neurological: Other (Unable to assess patient is currently on a ventilator and sedated.) Assessment and Plan - Plan Patient is a 79-year-old male brought to the ER by EMS from assisted due to worsening shortness of breath, and respiratory distress. Patient was intubated in ER, and currently on ventilator. Patient is admitted for multimodal pneumonia with acute hypoxic respiratory failure. (1) Multifocal pneumonia, with acute hypoxic respiratory failure. Patient is current on the ventilator. Probably culture ordered grew out Pseudomonas. Will continue with neb treatments and antibiotic therapy. Patient had been on Levaquin before. Will continue this for now. Continue Unasyn for now as well. Repeat ABG in AM. Plan extubated patient does well. Continue with neb treatments and IV steroids as patient with a history of COPD. Pulmonary consultation. (2) Chronic type 2 diabetes mellitus. -Order Accu-Chek every 6 hours with moderate sliding scale coverage. -Continue D5 half NS at 75 mL/ hr as noted above. Patient NPO. -Order A1c to evaluate patient diabetic status. Discharge Plan: [facility] Plan to discharge in: Greater than 2 days - Advance Directives Does patient have a Living Will: No Does patient have a Durable POA for Healthcare: No - Code Status/Comfort Care Code Status Assessed: FULL Code Status: Full Code Critical Care: Yes Time Spent Managing Pts Care (In Minutes): 30
[2025-06-26] MEDS: Levofloxacin 750mg IV 750 MG/150 ML BAG IV SCH (14:38)
[2025-06-26] MEDS: METHYLPREDNISOLONE 125 MG INJ IV ONE (14:38)
[2025-06-26] MEDS: METHYLPREDNISOLONE 125 MG INJ IV SCH (17:56)
[2025-06-26] MEDS: BUDESONIDE 0.5 MG/2 ML NEB NEB SCH (19:14)
[2025-06-26] MEDS: ARFORMOTEROL TARTRATE 15 MCG/2 ML VIAL.NEB NEB SCH (19:14)
[2025-06-26] MEDS: FLUTICASONE 50MCG NASAL SPRAY NAS SCH (21:00)
[2025-06-26] MEDS: QUETIAPINE 25 MG TAB PO SCH (21:04)
[2025-06-26] MEDS: DULOXETINE 30 MG CAP PO SCH (21:04)
[2025-06-26 21:24] LABS: ALT/SGPT 17.0 U/L (16-61); AST/SGOT 12.0 U/L (15-37); Albumin 2.6 g/dL (3.4-5.0); Albumin/Globulin Ratio 0.7 (1.1-1.8); Alkaline Phosphatase 62.0 U/L (45-117); Anion Gap 7.0 mEq/L (5.0-15.0); BUN Blood Urea Nitrogen 14.0 mg/dL (7-18); Globulin 3.5 g/dL (2.3-3.5); Glucose Level 161.0 mg/dL (74-106); Magnesium 2.1 mg/dL (1.6-2.4); Potassium 4.0 mEq/L (3.5-5.1)
[2025-06-27 05:18] LABS: Blood O2 Saturation 91.2 % (92.0-98.5)
[2025-06-27 05:22] LABS: Absolute Lymphocytes (CBC) 0.9 K/uL (0.7-4.9); Hematocrit 41.6 % (39.6-49.0); Hemoglobin 13.4 g/dL (13.6-17.9); MCH 29.5 pg (27.0-35.0); MCHC 32.1 g/dL (32.0-36.0); MCV 92.0 fL (80-100); MPV 9.5 fL (7.6-11.3); Nucleated RBC Absolute Count 0.0 (0-0); Nucleated Red Blood Cells % 0.0 % (0-0); RBC Red Blood Cell Count 4.52 M/uL (4.33-5.43); White Blood Count 9.30 thou/uL (4.3-10.9)
[2025-06-27 05:41] LABS: ALT/SGPT 16 U/L (16-61); Albumin 2.5 g/dL (3.4-5.0); Albumin/Globulin Ratio 0.7 (1.1-1.8); Alkaline Phosphatase 59 U/L (45-117); Anion Gap 8.0 mEq/L (5.0-15.0); BUN Blood Urea Nitrogen 17 mg/dL (7-18); Globulin 3.5 g/dL (2.3-3.5); Glucose Level 201 mg/dL (74-106); Potassium 4.0 mEq/L (3.5-5.1)
[2025-06-27 05:42] LABS: HDL Cholesterol 70 mg/dL (40-60); LDL Cholesterol, Calculated 64 mg/dL (<130); LDL Cholesterol,Calc NonReport 64; Magnesium 2.2 mg/dL (1.6-2.4)
[2025-06-27 05:43] LABS: AST/SGOT < 10 U/L (15-37)
--- NOTE | 2025-06-27 07:38 | RAD REPORT ---
Procedure: Chest Single View HISTORY: Pneumonia COMPARISON: June 26, 2025 FINDINGS: Mild bibasilar lung opacities unchanged. Upper lobes appear clear. No significant pleural effusion no cooper. The heart is mildly to moderately enlarged. IMPRESSION: No significant change in mild bibasilar opacities or atelectasis
[2025-06-27] MEDS: FUROSEMIDE 40 MG TABLET PO SCH (08:30)
[2025-06-27] MEDS: APIXABAN 2.5 MG TABLET PO SCH (08:30)
[2025-06-27] MEDS: CODEINE 30MG/APAP 300MG TAB PO PRN (11:13)
[2025-06-27 11:28] LABS: Blood Morphology Comment NOT SEEN (NOT SEEN); Differential Total Cells Count 100; Segmented Neutrophils 93 % (40-80)
[2025-06-28 06:31] LABS: Absolute Lymphocytes (CBC) 1.0 K/uL (0.7-4.9); Hematocrit 40.2 % (39.6-49.0); Hemoglobin 13.2 g/dL (13.6-17.9); MCH 29.9 pg (27.0-35.0); MCHC 32.8 g/dL (32.0-36.0); MCV 91.0 fL (80-100); MPV 9.1 fL (7.6-11.3); Nucleated RBC Absolute Count 0.0 (0-0); Nucleated Red Blood Cells % 0.2 % (0-0); RBC Red Blood Cell Count 4.41 M/uL (4.33-5.43); White Blood Count 14.40 thou/uL (4.3-10.9)
[2025-06-28 06:53] LABS: ALT/SGPT 18 U/L (16-61); Albumin 2.4 g/dL (3.4-5.0); Albumin/Globulin Ratio 0.6 (1.1-1.8); Alkaline Phosphatase 65 U/L (45-117); Anion Gap 6.3 mEq/L (5.0-15.0); BUN Blood Urea Nitrogen 26 mg/dL (7-18); Globulin 3.7 g/dL (2.3-3.5); Glucose Level 202 mg/dL (74-106); Magnesium 2.2 mg/dL (1.6-2.4); Potassium 4.3 mEq/L (3.5-5.1)
[2025-06-28 07:06] LABS: AST/SGOT < 10 U/L (15-37)
[2025-06-28] MEDS: ALBUTEROL 2.5 MG/3 ML NEB SOL NEB PRN (07:33)
[2025-06-28 08:07] VITALS: O2SAT 99
[2025-06-28] MEDS: DRISDOL (VITAMIN D=ERGOCALCIFEROL) 50000 UNIT CAP PO SCH (08:44)
[2025-06-28 09:14] VITALS: TEMP 97.6
--- NOTE | 2025-06-28 09:42 | P.PN ---
Date of Service: 06/27/25 Subjective Patient awake and following commands. Patient did well during spontaneous breathing trial. He reports that he is doing much better and denies any breathing issues. Patient does complain about his chronic right thigh and left shoulder pain and requested a medication for pain. Physical Examination - Vital Signs Reviewed - Physical Exam General: Other (Patient is current on a ventilator and sedated.) patient is unkempt and disheveled HEENT: ET tube and OG tube remain in place Respiratory: Coarse bilaterally Cardiovascular: Regular rate/rhythm, Normal S1 S2, No gallops, No rubs, No murmurs Gastrointestinal: Normal bowel sounds, Soft and benign, W/out hepatomegaly, No ascites, No masses, Distended (Secondary to obesity) Musculoskeletal: No clubbing, No swelling, No contractures, No erythema, No warmth Integumentary: Onychomycosis; other (Multiple bruised areas bilateral upper extremities.) Neurological: Other (Unable to assess patient is currently on a ventilator and sedated.) Assessment and Plan - Plan Patient is a 79-year-old male [facility] due to worsening shortness of breath, and respiratory distress. Patient was intubated in ER, and currently on ventilator. Patient is admitted for multimodal pneumonia with acute hypoxic respiratory failure. (1) Multifocal pneumonia, with acute hypoxic respiratory failure. Patient is current on the ventilator. Probably culture ordered grew out Pseudomonas. Will continue with neb treatments and antibiotic therapy. Patient had been on Levaquin before. Will continue this for now. Continue Unasyn for now as well. Repeat ABG in AM. Plan extubated patient does well. Continue with neb treatments and IV steroids as patient with a history of COPD. Pulmonary consultation. (2) Chronic type 2 diabetes mellitus. -Order Accu-Chek every 6 hours with moderate sliding scale coverage. -Continue D5 half NS at 75 mL/ hr as noted above. Patient NPO. -Order A1c to evaluate patient diabetic status. Discharge Plan: Long Term Plan to discharge in: Greater than 2 days - Advance Directives Does patient have a Living Will: No Does patient have a Durable POA for Healthcare: No - Code Status/Comfort Care Code Status Assessed: FULL Code Status: Full Code Critical Care: Yes Time Spent Managing Pts Care (In Minutes): 30
[2025-06-28 10:09] VITALS: BP 131/79
[2025-06-28] MEDS ORDERED: NOREPINEPHRINE BITARTRATE/D5W 4 MG/250 ML BAG IV SCH (11:00)
[2025-06-28] MEDS ORDERED: predniSONE 20 MG TAB PO SCH (21:00)
--- NOTE | 2025-06-29 11:03 | P.DS ---
Admission Date: 06/26/25 Discharge Date: 06/28/25 Disposition: ROUTINE DISCHARGE Discharge Condition: GOOD Reason for Admission: Multifocal pneumonia. Consultations: Pulmonology - Dr. Langston Brief History of Present Illness: 79yo M, PMH: anxiety, colon cancer on chemotherapy, depressive disorder, hypertension, atrial fibrillation, patient transferred to the ER today due to worsening shortness of breath and respiratory distress. Upon arrival to ER, patient was in respiratory distress, and was placed on BiPAP. Patient initial blood gas done in ER had a pH 7.41, pCO2 63, and repeat blood gas pH was 7.22, and pCO2 96, based on patient current pCO2, and worsening respiratory condition, patient was then intubated. After patient was intubated, he was started on Levophed, propofol infusion, and Versed infusion. Patient has a Summers catheter. On admission assessment, patient lungs bilateral with no adventitious breath sounds. No further history could be obtained from the patient because he is intubated, so my H&P is based on report received from the ER Dr. Sen, and from patient EMR.v Course in ER. (1) CT chest, abdomen, and pelvis. Impression; (a) multifocal multilobar pneumonia. ( b) no acute abdominal pelvic findings. (2) chest x-ray 1 view. Impression: No acute chest findings. Limited inspiratory volume. Hospital Course: Problem List: Acute hypoxic respiratory failure secondary to multifocal pneumonia Anxiety/Depression Hypertension A-fib Hx colon cancer on chemotherapy Physician discharge instructions: Patient presented with worsening shortness of breath secondary to multifocal pneumonia. CT chest was consistent with multifocal multilobar pneumonia. Patient had to be intubated in the ED due to worsening respiratory condition. Possibly partly due to medication/sedation. He was started on pressors and admitted to ICU for close monitoring. Patient was extubated to nasal cannula ~12 hours after placement and weaned off pressors quickly Lab work on admission was unremarkable. Patient was started on IV unasyn and Levaquin in addition to IV steroids and had improvement of his symptoms. Continued with a productive cough but improving and able to cough it up. Patient is to complete 1 week of oral levaquin and augmentin on discharge. Recommend following up with Dr. Langston in 1-2 weeks for further management. Patient was feeling better, breathing more comfortably, and was deemed stable for discharge. Medications: Levaquin x7 days Augmentin x7 days Prednisone x 3 days 20mg twice daily continue other home meds Follow up: PCP 3-[address] Langston in 1-2 weeks Please call to schedule / confirm appointments Physical Exam: GEN: Alert, oriented, NAD CV: Regular rate and rhythm, no edema Pulm:Nonlabored respirations on room air, clear bilaterally ABD: soft, nontender, nondistended Neuro: Normal speech, normal affect Vital Signs/Physical Exam: Temp Pulse Resp BP Pulse Ox 97.6 F 106 H 20 131/79 98 06/28/25 08:00 06/28/25 10:00 06/28/25 10:00 06/28/25 10:00 06/28/25 10:00 Laboratory Data at Discharge: WBC 14.40 thou/uL (4.3-10.9) H 06/28/25 05:52 Hgb 13.2 g/dL (13.6-17.9) L 06/28/25 05:52 Hct 40.2 % (39.6-49.0) 06/28/25 05:52 Plt Count 264 thou/uL (152-406) 06/28/25 05:52 PT 12.9 SECONDS (10-13.0) 06/25/25 19:15 INR 1.15 06/25/25 19:15 APTT 31.5 SECONDS (27.2-37.4) 06/25/25 19:15 Sodium 140 mEq/L (136-145) 06/28/25 05:52 Potassium 4.3 mEq/L (3.5-5.1) 06/28/25 05:52 BUN 26 mg/dL (7-18) H 06/28/25 05:52 Creatinine 0.59 mg/dL (0.70-1.30) L 06/28/25 05:52 Glucose 202 mg/dL (74-106) H 06/28/25 05:52 Phosphorus 2.8 mg/dL (2.5-4.9) 06/28/25 05:52 Magnesium 2.2 mg/dL (1.6-2.4) 06/28/25 05:52 Total Bilirubin 0.3 mg/dL (0.2-1.0) 06/28/25 05:52 AST < 10 U/L (15-37) L 06/28/25 05:52 ALT 18 U/L (16-61) 06/28/25 05:52 Alkaline Phosphatase 65 U/L (45-117) 06/28/25 05:52 Triglycerides 79 mg/dL (<150) 06/27/25 04:45 Cholesterol 150 mg/dL (<200) 06/27/25 04:45 HDL Cholesterol 70 mg/dL (40-60) H 06/27/25 04:45 Cholesterol/HDL Ratio 2.14 06/27/25 04:45 Home Medications: Acetaminophen 650 mg PO Q6H PRN 04/14/25 Apixaban [Eliquis *] 2.5 mg PO BID 04/14/25 Cyanocobalamin [Vitamin B-12*] 1,000 mcg PO DAILY 04/14/25 Duloxetine HCl 30 mg PO BEDTIME 04/14/25 Ergocalciferol (Vitamin D2) [Vitamin D2] 1,250 mcg PO SEECOM 04/14/25 Quetiapine Fumarate [Seroquel] 50 mg PO BEDTIME 04/14/25 Acetaminophen with Codeine [Tylenol with-Codeine #3 Tablet] 1 tab PO Q12H PRN 06/26/25 Furosemide 40 mg PO DAILY 06/26/25 Amox/Clavulanate [Augmentin 875-125 Tab] 1 tab PO BID 7 Days #14 tab 06/28/25 levoFLOXacin [Levaquin] 750 mg PO DAILY 7 Days #7 tab 06/28/25 predniSONE [Prednisone*] 20 mg PO BID 3 Days #6 tab 06/28/25 New Medications: Amox/Clavulanate [Augmentin 875-125 Tab] 1 tab PO BID 7 Days #14 tab levoFLOXacin [Levaquin] 750 mg PO DAILY 7 Days #7 tab predniSONE [Prednisone*] 20 mg PO BID 3 Days #6 tab Physician Discharge Instructions: Physician discharge instructions: Patient presented with worsening shortness of breath secondary to multifocal pneumonia. CT chest was consistent with multifocal multilobar pneumonia. Patient had to be intubated in the ED due to worsening respiratory condition. Possibly partly due to medication/sedation. He was started on pressors and admitted to ICU for close monitoring. Patient was extubated to nasal cannula ~12 hours after placement and weaned off pressors quickly Lab work on admission was unremarkable. Patient was started on IV unasyn and Levaquin in addition to IV steroids and had improvement of his symptoms. Continued with a productive cough but improving and able to cough it up. Patient is to complete 1 week of oral levaquin and augmentin on discharge. Recommend following up with Dr. Lnagston in 1-2 weeks for further management. Patient was feeling better, breathing more comfortably, and was deemed stable for discharge. Medications: Levaquin x7 days Augmentin x7 days Prednisone x 3 days 20mg twice daily continue other home meds Follow up: PCP 3-[address] Langston in 1-2 weeks Please call to schedule / confirm appointments [facility] [Primary [facility] - Physician Review: Patient Assessed, Agree with Above Assessment and Plan Time spent managing pt's care (in minutes): 45
== END 2025-06-28 12:57 | disposition home or self-care (01) | DRG 871 ==
LOC: ER 19:18 → 3RD-ICU 06-26 04:26
PROVIDERS: ADMIT Hospitalist; ATTEND Hospitalist
PROC: 5A09357 Assistance with Respiratory Ventilation, Less than 24 Consecutive Hours, Continuous Positive Airway Pressure (ICD-10-PCS; 2025-06-25)
PROC: 5A1935Z Respiratory Ventilation, Less than 24 Consecutive Hours (ICD-10-PCS; principal; 2025-06-26)
PROC: 0BH17EZ Insertion of Endotracheal Airway into Trachea, Via Natural or Artificial Opening (ICD-10-PCS; 2025-06-26)
PROC: 3E033XZ Introduction of Vasopressor into Peripheral Vein, Percutaneous Approach (ICD-10-PCS; 2025-06-26)
PROC: 4A033R1 Measurement of Arterial Saturation, Peripheral, Percutaneous Approach (ICD-10-PCS; 2025-06-26)
PROC: 0T9B70Z Drainage of Bladder with Drainage Device, Via Natural or Artificial Opening (ICD-10-PCS; 2025-06-28)
DX: A41.9 Sepsis, unspecified organism (principal); J18.9 Pneumonia, unspecified organism; J96.01 Acute respiratory failure with hypoxia; J96.02 Acute respiratory failure with hypercapnia; C18.9 Malignant neoplasm of colon, unspecified; R65.20 Severe sepsis without septic shock; M16.11 Unilateral primary osteoarthritis, right hip; I10 Essential (primary) hypertension; I49.3 Ventricular premature depolarization; F32.A Depression, unspecified; F41.9 Anxiety disorder, unspecified; I48.91 Unspecified atrial fibrillation; Z78.1 Physical restraint status; Z60.2 Problems related to living alone; Z79.01 Long term (current) use of anticoagulants; Z90.49 Acquired absence of other specified parts of digestive tract; Z79.899 Other long term (current) drug therapy
CPT/HCPCS: 31500; 36415; 36556; 36600; 51702; 71045; 71260; 74177; 80053; 80061; 81001; 82550; 82803; 82805; 82947; 83605; 83735; 83880; 84100; 84484; 85025; 85610; 85730; 86140; 87040; 87086; 87088; 94002; 94010; 94660; 94760; 97110; 97161; 99291; 99292; J0295; J0692; J1650; J1720; J1815; J2250; J2312; J2405; J2704; J2919; J3010; J3360; J3373; J7030; J7040; J7605; J7613; J7626; J7644; J7799; P9047; Q9967